=== PATIENT | female | born 1935 | race Caucasian/White ===

== ENCOUNTER 2016-07-27 13:21 | Emergency (ER) | payer MEDICARE, BC ==
--- NOTE | 2016-07-27 14:00 | ED ---
General Adult HPI - General Source: patient, family, RN notes reviewed Mode of arrival: wheelchair Limitations: no limitations <Winston Calderon - Last Filed: 07/27/16 16:36> <Jasson Feliz - Last Filed: 07/27/16 20:34> - General Chief complaint: Arrhythmia/Palpitations Stated complaint: heart fluttering Time Seen by Provider: 07/27/16 13:50 - History of Present Illness Initial comments: Patient is pleasant 80-year-old female presenting to the emergency department complaining of near syncopal sensation of palpitations. Patient has had a couple episodes today. Patient feels her heart fluttering. Patient feels lightheaded and lifts if she is going to pass out. Patient has difficulty walking during these events. Patient is currently symptom-free. Patient has had a venous symptoms associated with atrial fibrillation. Patient is on Coumadin. Patient did fall and strike the back of her head 1 week ago however no loss of consciousness. (Winston Calderon) - Related Data Home Medications Medication Instructions Recorded Confirmed Dofetilide [Tikosyn] 250 mcg PO DAILY@0900,2100 10/06/13 07/27/16 Warfarin [Coumadin] 3 mg PO DAILY 10/06/13 07/27/16 Levothyroxine Sodium [Synthroid] 75 mcg PO DAILY 11/04/15 07/27/16 Magnesium Oxide [Mag-Ox] 400 mg PO DAILY 11/04/15 07/27/16 Metoprolol Succinate (ER) [Toprol 50 mg PO DAILY 11/04/15 07/27/16 Xl] Spironolactone [Aldactone] 25 mg PO DAILY 11/04/15 07/27/16 Acetaminophen [Tylenol] 650 mg PO Q6HR PRN 07/27/16 07/27/16 Furosemide [Lasix] 40 mg PO DAILY 07/27/16 07/27/16 Pravastatin Sodium [Pravachol] 80 mg PO HS 07/27/16 07/27/16 Previous Rx's Medication Instructions Recorded Warfarin [Coumadin] 3 mg PO DAILY #30 tab 07/27/16 Allergies Allergy/AdvReac Type Severity Reaction Status Date / Time codeine Allergy Unknown Verified 07/27/16 14:20 monosodium glutamate [MSG] Allergy Unknown Verified 07/27/16 14:20 Review of Systems ROS Other: All systems not noted in ROS Statement are negative. Constitutional: Denies: fever Eyes: Denies: eye pain ENT: Denies: ear pain Respiratory: Denies: cough, dyspnea Cardiovascular: Reports: palpitations. Denies: chest pain Endocrine: Reports: fatigue Gastrointestinal: Denies: abdominal pain Genitourinary: Denies: dysuria Musculoskeletal: Denies: back pain Skin: Denies: rash Neurological: Denies: headache, weakness <CalderonWinston - Last Filed: 07/27/16 16:36> ROS Other: All systems not noted in ROS Statement are negative. <Jasson Feliz - Last Filed: 07/27/16 20:34> ROS Statement: Those systems with pertinent positive or pertinent negative responses have been documented in the HPI. Past Medical History Past Medical History: Coronary Artery Disease (CAD), Heart Failure, Hypertension , Thyroid Disorder Additional Past Medical History / Comment(s): UTI, arrythmia History of Any Multi-Drug Resistant Organisms: None Reported Past Surgical History: Cardiac Ablation, Section, Orthopedic Surgery, Pacemaker Additional Past Surgical History / Comment(s): BILATERAL KNEE Past Anesthesia/Blood Transfusion Reactions: No Reported Reaction Type of Cardiac Device: Biventricular Pacemaker, Permanent Pacemaker, AICD Device Placement Date:: 2010 Past Psychological History: No Psychological Hx Reported Smoking Status: Never smoker Past Alcohol Use History: None Reported Past Drug Use History: None Reported <Winston Calderon - Last Filed: 07/27/16 16:36> General Exam Limitations: no limitations General appearance: alert, in no apparent distress Head exam: Present: atraumatic Eye exam: Present: normal appearance, PERRL, EOMI ENT exam: Present: normal oropharynx Neck exam: Present: normal inspection Respiratory exam: Present: normal lung sounds bilaterally Cardiovascular Exam: Present: regular rate, normal rhythm Expanded Peripheral pulses: 2+: Radial (R), Radial (L), Dorsalis Pedis (R), Dorsalis Pedis (L) GI/Abdominal exam: Present: soft. Absent: tenderness Extremities exam: Present: normal inspection. Absent: pedal edema, calf tenderness Neurological exam: Present: alert, oriented X3, CN II-XII intact. Absent: motor sensory deficit Expanded Speech: Present: fluid speech Motor strength exam: RUE: 5, LUE: 5, RLE: 5, LLE: 5 Eye Response: (4) open spontaneously Motor Response: (6) obeys commands Verbal Response: (5) oriented Psychiatric exam: Present: normal affect, normal mood Skin exam: Present: normal color <Winston Calderon - Last Filed: 07/27/16 16:36> <Jasson Feliz - Last Filed: 07/27/16 20:34> - General Exam Comments Initial Comments: Patient did have her pacemaker interrogated appears to functioning as it was programmed to do. No evidence of any deficits. Patient will be discharged with follow-up with her lard maker as planned. I did also discuss with the patient that she does need increase oral fluid intake. (Jasson Feliz) EKG Findings - EKG Comments: EKG Findings:: Atrial paced rhythm with a rate of 75. First-degree AV block with a GA of 234. QRS 78. QT 434. QTC 484. Normal axis. Normal QRS. Normal ST-T. <Winston Calderon - Last Filed: 07/27/16 16:36> Medical Decision Making - Lab Data Result diagrams: 07/27/16 14:00 07/27/16 14:00 - Radiology Data Radiology results: report reviewed (Computed tomography scan the brain reveals no acute process.), image reviewed (Chest x-ray shows no acute process.) <Winston Calderon - Last Filed: 07/27/16 16:36> - Lab Data Result diagrams: 07/27/16 14:00 07/27/16 14:00 <Jasson Feliz - Last Filed: 07/27/16 20:34> - Medical Decision Making Patient reexamined and symptom-free. Case discussed in detail with Dr. Lawrence who does recommend discussing the case with Dr. schultz. Case was discussed with Dr. schultz who does want to have device interrogated and his lungs are problems she can be discharged home. (Winston Calderon) - Lab Data Lab Results 07/27/16 07/27/16 07/27/16 Range/Units 14:00 14:00 14:00 WBC 5.0 (3.8-10.6) k/uL RBC 4.58 (3.80-5.40) m/uL Hgb 13.2 (11.4-16.0) gm/dL Hct 40.9 (34.0-46.0) % MCV 89.3 (80.0-100.0) fL MCH 28.8 (25.0-35.0) pg MCHC 32.2 (31.0-37.0) g/dL RDW 13.2 (11.5-15.5) % Plt Count 236 (150-450) k/uL Neutrophils % 48 % Lymphocytes % 36 % Monocytes % 8 % Eosinophils % 2 % Basophils % 2 % Neutrophils # 2.4 (1.3-7.7) k/uL Lymphocytes # 1.8 (1.0-4.8) k/uL Monocytes # 0.4 (0-1.0) k/uL Eosinophils # 0.1 (0-0.7) k/uL Basophils # 0.1 (0-0.2) k/uL PT (9.0-12.0) sec INR (<1.1) APTT (22.0-30.0) sec Sodium 141 (137-145) mmol/L Potassium 4.5 (3.5-5.1) mmol/L Chloride 105 (98-107) mmol/L Carbon Dioxide 29 (22-30) mmol/L Anion Gap 7 mmol/L BUN 22 H (7-17) mg/dL Creatinine 0.96 (0.52-1.04) mg/dL Est GFR (MDRD) Af Amer >60 (>60 ml/min/1.73 sqM) Est GFR (MDRD) Non-Af 56 (>60 ml/min/1.73 sqM) Glucose 100 H (74-99) mg/dL Calcium 9.0 (8.4-10.2) mg/dL Magnesium 2.1 (1.6-2.3) mg/dL Total Bilirubin 0.6 (0.2-1.3) mg/dL AST 25 (14-36) U/L ALT 21 (9-52) U/L Alkaline Phosphatase 69 (38-126) U/L Total Creatine Kinase 77 (30-135) U/L CK-MB (CK-2) 1.5 (0.0-2.4) ng/mL CK-MB (CK-2) Rel Index 1.9 Troponin I <0.012 (0.000-0.034) ng/mL Total Protein 6.4 (6.3-8.2) g/dL Albumin 3.5 (3.5-5.0) g/dL TSH <0.015 L (0.465-4.680) mIU/L Free T4 2.02 (0.78-2.19) ng/dL Free T3 pg/mL 4.4 (2.8-5.3) pg/ml 07/27/16 Range/Units 14:00 WBC (3.8-10.6) k/uL RBC (3.80-5.40) m/uL Hgb (11.4-16.0) gm/dL Hct (34.0-46.0) % MCV (80.0-100.0) fL MCH (25.0-35.0) pg MCHC (31.0-37.0) g/dL RDW (11.5-15.5) % Plt Count (150-450) k/uL Neutrophils % % Lymphocytes % % Monocytes % % Eosinophils % % Basophils % % Neutrophils # (1.3-7.7) k/uL Lymphocytes # (1.0-4.8) k/uL Monocytes # (0-1.0) k/uL Eosinophils # (0-0.7) k/uL Basophils # (0-0.2) k/uL PT 13.6 H (9.0-12.0) sec INR 1.4 (<1.1) APTT 22.6 (22.0-30.0) sec Sodium (137-145) mmol/L Potassium (3.5-5.1) mmol/L Chloride (98-107) mmol/L Carbon Dioxide (22-30) mmol/L Anion Gap mmol/L BUN (7-17) mg/dL Creatinine (0.52-1.04) mg/dL Est GFR (MDRD) Af Amer (>60 ml/min/1.73 sqM) Est GFR (MDRD) Non-Af (>60 ml/min/1.73 sqM) Glucose (74-99) mg/dL Calcium (8.4-10.2) mg/dL Magnesium (1.6-2.3) mg/dL Total Bilirubin (0.2-1.3) mg/dL AST (14-36) U/L ALT (9-52) U/L Alkaline Phosphatase (38-126) U/L Total Creatine Kinase (30-135) U/L CK-MB (CK-2) (0.0-2.4) ng/mL CK-MB (CK-2) Rel Index Troponin I (0.000-0.034) ng/mL Total Protein (6.3-8.2) g/dL Albumin (3.5-5.0) g/dL TSH (0.465-4.680) mIU/L Free T4 (0.78-2.19) ng/dL Free T3 pg/mL (2.8-5.3) pg/ml Disposition <Winston Calderon - Last Filed: 07/27/16 16:36> <Jasson Feliz - Last Filed: 07/27/16 20:34> Clinical Impression: Palpitations, Dehydration, Pacemaker Disposition: HOME SELF-CARE Condition: Good Instructions: Palpitations (ED), Dehydration (ED) Prescriptions: Warfarin [Coumadin] 3 mg PO DAILY #30 tab Referrals: Tray Liu DO [Primary Care Provider] - 1-2 days
[2016-07-27 14:16] LABS: Basophils # (A) 0.1 k/uL (0-0.2); Basophils % (A) 2 %; CH 28.1; CHCM 31.6; Eosinophils # (A) 0.1 k/uL (0-0.7); Eosinophils % (A) 2 %; HCT 40.9 % (34.0-46.0); HDW 2.39; HGB 13.2 gm/dL (11.4-16.0); Luc # (Auto) 0.21; Luc % (Auto) 4; Lymphocytes # (A) 1.8 k/uL (1.0-4.8); Lymphocytes % (A) 36 %; MCH 28.8 pg (25.0-35.0); MCHC 32.2 g/dL (31.0-37.0); MCV 89.3 fL (80.0-100.0); Mean Platelet Volume 6.9; Monocytes # (A) 0.4 k/uL (0-1.0); Monocytes % (A) 8 %; Neutrophils # (A) 2.4 k/uL (1.3-7.7); Neutrophils % (A) 48 %; RBC 4.58 m/uL (3.80-5.40); RDW 13.2 % (11.5-15.5); WBC (Perox) 4.96
[2016-07-27 14:30] LABS: ALT 21 U/L (9-52); AST 25 U/L (14-36); Alkaline Phosphatase 69 U/L (38-126); Anion Gap 7 mmol/L; Blood Urea Nitrogen 22 mg/dL (7-17); Carbon Dioxide 29 mmol/L (22-30); Chloride 105 mmol/L (98-107); Glucose 100 mg/dL (74-99); Magnesium 2.1 mg/dL (1.6-2.3); Non-African American GFR(MDRD) 56 (>60 ml/min/1.73 sqM); Potassium 4.5 mmol/L (3.5-5.1); Sodium 141 mmol/L (137-145); Total Bilirubin 0.6 mg/dL (0.2-1.3); Total Protein 6.4 g/dL (6.3-8.2)
[2016-07-27 14:32] LABS: INR 1.4 (<1.1); Partial Thromboplastin Time 22.6 sec (22.0-30.0); Prothrombin Time 13.6 sec (9.0-12.0)
[2016-07-27 14:41] LABS: Creatine Kinase 77 U/L (30-135)
--- NOTE | 2016-07-27 14:43 | XR ---
EXAMINATION TYPE: XR chest 2V DATE OF EXAM: 07/27/2016 2:36 PM COMPARISON: Prior chest x-ray 04 November 2015 HISTORY: Dysrhythmia TECHNIQUE: Frontal and lateral views of the chest are obtained. FINDINGS: There is no focal air space opacity, pleural effusion, or pneumothorax seen. The cardiac silhouette size is stable accounting for differences in technique. There are prominent lung volumes suggesting underlying COPD. Intracardiac defibrillator leads are stable. Calcified nodes present in t he aorticopulmonary window. Patient is rotated. There are overlying cardiac leads. The osseous struct ures are intact. IMPRESSION: No acute cardiopulmonary process.
[2016-07-27 14:53] LABS: Creatine Kinase MB 1.5 ng/mL (0.0-2.4); Troponin I <0.012 ng/mL (0.000-0.034)
--- NOTE | 2016-07-27 15:24 | CT ---
EXAMINATION TYPE: CT brain wo con DATE OF EXAM: 07/27/2016 3:21 PM COMPARISON: NONE HISTORY: Fall last week, left posterior head injury. Weakness since. CT DLP: 1135.[address] of the brain was performed. The ventricles, basal cisterns and sulci overlying the cerebral convexities demonstrate mild enlargem ent. There is no evidence for intracranial hemorrhage or sulcal effacement. There is decreased attenuation about the periventricular white matter and deep white matter of both c erebral hemispheres, compatible with chronic small vessel ischemia. Differential diagnosis does inclu de demyelination. No mass effects are seen.No midline shift. Osseous calvarium is intact. If symptoms persist consider MRI. IMPRESSION: 1. Age related atrophic and chronic small vessel ischemic change without acute intracranial process s een at this time.
[2016-07-27 16:11] VITALS: TEMP 97.3
[2016-07-27] MEDS ORDERED: WARFARIN 3 MG TAB PO ONE (18:00)
[2016-07-27 20:11] VITALS: RESP 16
[2016-07-27 20:29] VITALS: BP 131/63; PULSE 73
== END 2016-07-27 20:41 | disposition home or self-care (01) ==
LOC: EC 13:21
DX: E86.0 Dehydration (principal); R00.2 Palpitations; I25.10 Atherosclerotic heart disease of native coronary artery without angina pectoris; I50.9 Heart failure, unspecified; I10 Essential (primary) hypertension; E07.9 Disorder of thyroid, unspecified; Z79.899 Other long term (current) drug therapy; Z79.01 Long term (current) use of anticoagulants; Z88.5 Allergy status to narcotic agent; Z88.8 Allergy status to other drugs, medicaments and biological substances; Z95.810 Presence of automatic (implantable) cardiac defibrillator
CPT/HCPCS: 36415; 70450; 71020; 80053; 82550; 82553; 83735; 84439; 84443; 84481; 84484; 85025; 85610; 85730; 93005; 99284

== ENCOUNTER 2016-08-30 14:45 | Day surgery (SDC) | payer MEDICARE, BC ==
[~2016-08-30 14:45] MED LIST: HYDROmorphone 1 MG/ML 1 ML SYRINGE IVP PRN; MIDAZOLAM 2 MG/2 ML VIAL IV PRN; ceFAZolin 1,000 MG in SODIUM CHLORIDE 0.9% IRRIGATIO 250 ML IRRIGATION ONE; ceFAZolin 2 GM in SODIUM CHLORIDE 0.9% 100 ML IVPB ONE
[2016-08-30] MEDS: SODIUM CHLORIDE 0.9% 1,000 ML IV SCH (15:16)
[2016-08-30 15:29] LABS: INR 1.6 (<1.1); Prothrombin Time 15.8 sec (9.0-12.0)
[2016-08-30] MEDS ORDERED: MIDAZOLAM 2 MG/2 ML VIAL ONE (18:31)
[2016-08-30] MEDS ORDERED: PROPOFOL 10 MG/ML 20 ML VIAL IV ONE (18:31)
[2016-08-30] MEDS ORDERED: fentaNYL (PF) 50 MCG/ML 2 ML AMP ONE (18:31)
[2016-08-30] MEDS ORDERED: ePHEDrine 50 MG/ML 1 ML AMP ONE (18:31)
[2016-08-30] MEDS ORDERED: LIDOCAINE 1% INJ 10MG/ML (20 ML MDV) SQ ONE (19:02)
[2016-08-30] MEDS ORDERED: LIDOCAINE 2% INJ 20 MG/ML SQ ONE (19:13)
[2016-08-30] MEDS ORDERED: ACETAMINOPHEN TAB 325 MG TAB PO PRN (19:46)
[2016-08-30] MEDS ORDERED: HYDROcodone/APAP 5-325MG 1 EACH TAB PO PRN (19:46)
[2016-08-30] MEDS ORDERED: SODIUM CHLORIDE 0.9% 500 ML IV ONE (19:52)
[2016-08-30] MEDS ORDERED: ACETAMINOPHEN IV (For NPO) 1,000 MG in EMPTY BAG 1 BAG IVPB ONE (20:00)
--- NOTE | 2016-08-30 20:21 | PCN ---
DATE OF PROCEDURE: History of idiopathic cardiomyopathy and heart failure and atrial fibrillation who has a dual-chamber ICD which is at [facility]. At the time of ICD implantation originally at an outside institution, ejection fraction of 30%. She was referred by Dr. Saravia for dual-chamber ICD generator change. Patient was brought to the EP lab in a fasting state. Written informed consent was obtained prior to the procedure. The left shoulder area was prepped and draped as per protocol. Lidocaine 1% was used for local anesthesia. A 4 cm incision was made parallel to the deltopectoral groove and carried down to the level of the generator. The generator was explanted. Partial capsulectomy was performed. Hemostasis was assured. The device had migrated laterally and the pocket was extended more medially. Once the new generator was implanted, it was secured to the underlying pectoralis muscle to prevent lateral migration. The atrial and ventricular lead functions were within normal limits. The atrial lead was a Medtronic model #4076, serial #[id number], P waves 2.3 mV, pacing impedance 430 ohms, pacing threshold 0.5 v at 0.5 ms. The RV lead was a single-coil Medtronic 6935, serial #[id number]. R waves 9.8 mV, pacing impedance 380 ohms, pacing threshold 0.625 v at 0.5 ms. The old generator explanted was a Medtronic [id number], serial #[id number]. The new generator that was implanted was a [employer], model #NA4235-70P, serial #[id number]. The original generator was implanted in June of 2010. The wound was then closed in 3 layers and dressed per protocol. DFT TESTING UNDER ANESTHESIA: Shock and T-wave protocol was used to induce ventricular fibrillation. DFT testing was performed under anesthesia. A DC fib ( ) shock was used to induce ventricular fibrillation. This was adequately and appropriately detected at least sensitivity and successfully internally defibrillated with a 10-joule shock. No post-shock noise. No dropouts. Charge time 1.9 seconds. Shocking impedance 72 ohms. Patient went into atrial fibrillation with this shock and she had to be electrically cardioverted to sinus rhythm. She had atrial fibrillation with RVR at 130 beats per minute. The device was then programmed to 3 zones of therapy according to the MADIT-RIT programming to minimize inappropriate ICD shocks. Appropriate anti-tachycardia pacing, cardioversion and defibrillation were programmed. Underlying DDDR pacing at 50 to 130 bpm. Patient tolerated the procedure well without any acute complications.
--- NOTE | 2016-08-30 20:23 | LTR ---
August 30, 2016 RE: Clarisa Baum Dear Tray, I had the pleasure of seeing Clarisa Baum in electrophysiology followup. Clarisa underwent dual-chamber ICD generator change successfully without any acute complication. She will remain in the hospital for 24 hours and receive IV antibiotics and will be discharged home thereafter. Her medications remain unchanged. She will follow up with you and Dr. Saravia as before. Thank you for entrusting me with the care of your patient. Sincerely, LALY CASTAÑEDA MD
[2016-08-30] MEDS: LACTATED RINGERS 1,000 ML IV SCH (20:54)
[2016-08-30] MEDS ORDERED: PRAVASTATIN SODIUM 80 MG TAB PO SCH (21:00)
[2016-08-30] MEDS: DOFETILIDE 250 MCG CAP PO SCH (21:07)
[2016-08-30] MEDS ORDERED: TEMAZEPAM 15 MG CAP PO PRN (22:30)
[2016-08-30 22:57] VITALS: BMI 26.3
[2016-08-30] MEDS: ceFAZolin 2 GM in SODIUM CHLORIDE 0.9% 100 ML IVPB SCH (23:14)
[2016-08-31] MEDS: LACTATED RINGERS 1,000 ML IV SCH (06:04)
[2016-08-31] MEDS: ceFAZolin 2 GM in SODIUM CHLORIDE 0.9% 100 ML IVPB SCH ×3 (06:04→17:01)
[2016-08-31] MEDS: SODIUM CHLORIDE 0.9% 1,000 ML IV SCH (06:05)
[2016-08-31] MEDS ORDERED: LEVOTHYROXINE 75 MCG TAB PO SCH (06:30)
[2016-08-31] MEDS: METOCLOPRAMIDE 5 MG/ML 2 ML VIAL IVP PRN ×2 (08:10→13:22)
[2016-08-31] MEDS ORDERED: SPIRONOLACTONE 25 MG TAB PO SCH (09:00)
[2016-08-31] MEDS ORDERED: MAGNESIUM OXIDE 400 MG TAB PO SCH (09:00)
[2016-08-31] MEDS ORDERED: FUROSEMIDE 40 MG TAB PO SCH (09:00)
[2016-08-31] MEDS ORDERED: METOPROLOL SUCCINATE (ER) 50 MG TAB.ER.24H PO SCH (09:00)
[2016-08-31] MEDS: DOFETILIDE 250 MCG CAP PO SCH (10:21)
--- NOTE | 2016-08-31 12:31 | PN ---
An 80-year-old female who underwent dual-chamber ICD generator change yesterday. She is doing well. There is a little bit of soakage in the dressing, but otherwise no hematoma. She was a bit nauseous in the morning after the antibiotic. Vitals are stable. Blood pressure is 111/57 mmHg, pulse rate is in the 60;s, afebrile at 96.2 degrees Fahrenheit. Heart sounds S1, S2 are normal. Breath sounds are normal. IMPRESSION: 1. History of cardiomyopathy, idiopathic, status post dual chamber ICD at an outside institution. Yesterday, she underwent dual-chamber ICD generator change. 2. Atrial fibrillation, on dofetilide. Suggest continue dofetilide and all other cardiac medications. Follow up in the office in 5 days in the [facility]. She may go home later this evening after completion of IV antibiotics.
[2016-08-31 15:56] VITALS: BP 132/62; PULSE 67; RESP 16; TEMP 98.1
== END 2016-08-31 18:24 | disposition home or self-care (01) ==
LOC: CATHEP 14:45 → 3OBS 19:35 → CATHEP 08-31 18:24
PROVIDERS: ATTEND Internal Medicine Clinical Cardiac Electrophysiology
DX: Z45.02 Encounter for adjustment and management of automatic implantable cardiac defibrillator (principal); R11.0 Nausea; I48.0 Paroxysmal atrial fibrillation; I42.9 Cardiomyopathy, unspecified; I11.0 Hypertensive heart disease with heart failure; I50.9 Heart failure, unspecified; I25.10 Atherosclerotic heart disease of native coronary artery without angina pectoris; I25.9 Chronic ischemic heart disease, unspecified; E78.2 Mixed hyperlipidemia; I34.0 Nonrheumatic mitral (valve) insufficiency; I48.92 Unspecified atrial flutter; K21.9 Gastro-esophageal reflux disease without esophagitis; Z79.01 Long term (current) use of anticoagulants; Z79.899 Other long term (current) drug therapy; Z88.5 Allergy status to narcotic agent
CPT/HCPCS: 93641; 33263; 85610; C1721; J2001 ×2; J2250; J2765; J0690 ×3; J3010; J0131; J2704

== ENCOUNTER → 2017-08-31 | Outpatient (CLI) | payer MEDICARE, BC ==
--- NOTE | 2017-09-02 10:45 | MM ---
Reason for exam: screening (asymptomatic). Last mammogram was performed 2 years and 11 months ago. History: Patient is postmenopausal. Family history of breast cancer in sister at age 50. Benign excisional biopsy of the left breast. Physical Findings: A clinical breast exam by your physician is recommended on an annual basis and results should be correlated with mammographic findings. MG 3D Screening Mammo W/Cad Bilateral CC and MLO view(s) were taken. Prior study comparison: October 04, 2014, bilateral MG screening mammo w CAD. October 03, 2013, bilateral MG screening mammo w CAD. The breast tissue is heterogeneously dense. This may lower the sensitivity of mammography. Benign appearing bilateral calcifications. Left cardiac device noted. ASSESSMENT: Benign, BI-RAD 2 RECOMMENDATION: Routine screening mammogram of both breasts in 1 year.
== END | disposition home or self-care (01) ==
LOC: RADMAMWWP 12:30
PROVIDERS: ATTEND Family Medicine
DX: Z12.31 Encounter for screening mammogram for malignant neoplasm of breast (principal)
CPT/HCPCS: 77063; 77067

== ENCOUNTER 2017-09-25 10:08 | Emergency (ER) | payer MEDICARE, BC ==
[2017-09-25 10:16] VITALS: RESP 18
[2017-09-25] MEDS ORDERED: SODIUM CHLORIDE 0.9% 1,000 ML IV STA (10:27)
--- NOTE | 2017-09-25 10:31 | ED ---
General Adult HPI - General Source: patient, RN notes reviewed Mode of arrival: wheelchair Limitations: no limitations <Modesto Sheikh - Last Filed: 09/25/17 12:28> <Jasson Quispe - Last Filed: 09/25/17 17:20> - General Chief complaint: Weakness Stated complaint: WEAKNESS, HEADACHE, DIZZINESS Time Seen by Provider: 09/25/17 10:19 - History of Present Illness Initial comments: Patient 81-year-old female presenting to the emergency room today with chief complaint of dizziness and head pressure. Patient states that yesterday she was standing at the kitchen sink when she noticed that skin very dizzy lightheaded. She states she had used the furniture to help her get back to the living room to sit down. States the episode lasted 15-20 minutes. Patient admits that she's had similar episodes in the past but not as severe. Patient states woke up this morning feeling pressure both in the front and at times radiating to the back of her head. States currently not feeling any pressure at this time. She does admit that it's come and goes and lasts just a few minutes at a time. Patient also admits to feeling difficulty walking that has been ongoing over the last several months. Patient denies any recent fever, chills, shortness of breath, chest pain, back pain, abdominal pain, nausea or vomiting, numbness or tingling, headaches or visual changes, or any other complaints. (Modesto Sheikh) - Related Data Home Medications Medication Instructions Recorded Confirmed Dofetilide [Tikosyn] 250 mcg PO DAILY@0900,2100 10/06/13 09/25/17 Levothyroxine Sodium [Synthroid] 75 mcg PO DAILY 11/04/15 09/25/17 Magnesium Oxide [Mag-Ox] 400 mg PO DAILY 11/04/15 09/25/17 Metoprolol Succinate (ER) [Toprol 50 mg PO DAILY 11/04/15 09/25/17 Xl] Spironolactone [Aldactone] 25 mg PO DAILY 11/04/15 09/25/17 Acetaminophen [Tylenol] 650 mg PO Q6HR PRN 07/27/16 09/25/17 Furosemide [Lasix] 40 mg PO DAILY 07/27/16 09/25/17 Pravastatin Sodium [Pravachol] 80 mg PO HS 07/27/16 09/25/17 Previous Rx's Medication Instructions Recorded Warfarin [Coumadin] 3 mg PO DAILY #30 tab 07/27/16 Allergies Allergy/AdvReac Type Severity Reaction Status Date / Time codeine Allergy Unknown Verified 08/30/16 21:01 monosodium glutamate [MSG] Allergy headache Verified 08/30/16 21:01 Review of Systems ROS Other: All systems not noted in ROS Statement are negative. <Modesto Sheikh - Last Filed: 09/25/17 12:28> ROS Other: All systems not noted in ROS Statement are negative. <Jasson Quispe - Last Filed: 09/25/17 17:20> ROS Statement: Those systems with pertinent positive or pertinent negative responses have been documented in the HPI. Past Medical History Past Medical History: Coronary Artery Disease (CAD), Heart Failure, CVA/TIA, Deep Vein Thrombosis (DVT), Hyperlipidemia, Hypertension, Osteoarthritis (OA), Thyroid Disorder Additional Past Medical History / Comment(s): UTI, arrythmia See Dr Garcia's H& P for cardiac history History of Any Multi-Drug Resistant Organisms: None Reported Past Surgical History: Cardiac Ablation, Section, Hysterectomy, Orthopedic Surgery, Pacemaker Additional Past Surgical History / Comment(s): BILATERAL KNEE Past Anesthesia/Blood Transfusion Reactions: No Reported Reaction Type of Cardiac Device: Biventricular Pacemaker, Permanent Pacemaker, AICD Device Placement Date:: 2010 Past Psychological History: No Psychological Hx Reported Smoking Status: Never smoker Past Alcohol Use History: None Reported Past Drug Use History: None Reported - Past Family History Father Family Medical History: Cancer Additional Family Medical History / Comment(s): bowel Sister(s) Family Medical History: Cancer Additional Family Medical History / Comment(s): breast <Modesto Sheikh - Last Filed: 09/25/17 12:28> General Exam Limitations: no limitations <Modesto Sheikh - Last Filed: 09/25/17 12:28> <Jasson Quispe - Last Filed: 09/25/17 17:20> - General Exam Comments Initial Comments: General: The patient is awake and alert, in no distress, and does not appear acutely ill. Eye: Pupils are equal, round and reactive to light, extra-ocular movements are intact. No nystagmus. There is normal conjunctiva bilaterally. No signs of icterus. Ears, nose, mouth and throat: There are moist mucous membranes and no oral lesions. Neck: The neck is supple, there is no tenderness or JVD. Cardiovascular: There is a regular rate and rhythm. No murmur, rub or gallop is appreciated. Respiratory: Lungs are clear to auscultation, respirations are non-labored, breath sounds are equal. No wheezes, stridor, rales, or rhonchi. Musculoskeletal: Normal ROM, no tenderness. Strength 5/5. Sensation intact. Pulses equal bilaterally 2+. Neurological: A&O x 3. CN II-XII intact, There are no obvious motor or sensory deficits. Coordination appears grossly intact. Speech is normal. Skin: Skin is warm and dry and no rashes or lesions are noted. Psychiatric: Cooperative, appropriate mood & affect, normal judgment. (Modesto Sheikh) Vital Signs 09/25/17 09/25/17 09/25/17 10:13 10:16 12:43 Temperature 98.3 F 97.5 F L Pulse Rate 72 65 Respiratory 18 18 Rate Blood Pressure 159/73 151/89 O2 Sat by Pulse 99 97 Oximetry EKG Findings - EKG Comments: EKG Findings:: EKG performed at 1056: Shows normal sinus rhythm at 67 bpm. LA interval 172. QRS 66. QT/QTc 450/475. No acute ST changes. <Modesto Sheikh - Last Filed: 09/25/17 12:28> Medical Decision Making - Lab Data Result diagrams: 09/25/17 10:57 09/25/17 10:57 <Modesto Sheikh - Last Filed: 09/25/17 12:28> - Lab Data Result diagrams: 09/25/17 10:57 09/25/17 10:57 <Jasson Quispe - Last Filed: 09/25/17 17:20> - Medical Decision Making Patient reexamined at this time shows no signs of distress. Patient's EKG shows normal sinus rhythm. Labs been reviewed are unremarkable. Chest x-rays negative. CT of the head negative. Results were discussed with the patient. Patient seen by attending physician Dr. Quispe. Was offered to the patient for admission with consult to neurology for her symptoms of dizziness and headache. Patient has had no headache here in the emergency room. States comes and goes. At this time patient states she feels comfortable being discharged home does not want stay in the hospital has declined admission. Patient will be discharged to follow-up the family physician tomorrow. Advised return if any symptoms increase or worsen or any other concerns. (Modesto Sheikh ) Patient evaluated, no signs of distress. Patient is quite comfortable with no complaints the time my evaluation. Neurologic examination is nonfocal. There is no ataxia, normal gait, Romberg is negative, ryiv-af-pasf normal, finger-to- nose normal. Patient is offered admission for her symptoms as she does have previous history of TIA and CVA, although it is thought to be very unlikely at this time. She declines prefers to be discharged home and will follow up as an outpatient. She will return with worsening or changing symptoms. (Jasson Quispe) - Lab Data Lab Results 09/25/17 09/25/17 09/25/17 Range/Units 10:57 10:57 10:57 WBC 5.2 (3.8-10.6) k/uL RBC 4.54 (3.80-5.40) m/uL Hgb 12.6 (11.4-16.0) gm/dL Hct 39.8 (34.0-46.0) % MCV 87.7 (80.0-100.0) fL MCH 27.8 (25.0-35.0) pg MCHC 31.7 (31.0-37.0) g/dL RDW 14.2 (11.5-15.5) % Plt Count 231 (150-450) k/uL Neutrophils % 48 % Lymphocytes % 36 % Monocytes % 9 % Eosinophils % 3 % Basophils % 1 % Neutrophils # 2.5 (1.3-7.7) k/uL Lymphocytes # 1.9 (1.0-4.8) k/uL Monocytes # 0.4 (0-1.0) k/uL Eosinophils # 0.1 (0-0.7) k/uL Basophils # 0.1 (0-0.2) k/uL PT (9.0-12.0) sec INR (<1.2) APTT (22.0-30.0) sec Sodium 141 (137-145) mmol/L Potassium 4.2 (3.5-5.1) mmol/L Chloride 102 (98-107) mmol/L Carbon Dioxide 30 (22-30) mmol/L Anion Gap 9 mmol/L BUN 16 (7-17) mg/dL Creatinine 0.93 (0.52-1.04) mg/dL Est GFR (CKD-EPI)AfAm 67 (>60 ml/min/1.73 sqM) Est GFR (CKD-EPI)NonAf 58 (>60 ml/min/1.73 sqM) Glucose 86 (74-99) mg/dL Calcium 9.5 (8.4-10.2) mg/dL Magnesium 2.1 (1.6-2.3) mg/dL Total Bilirubin 0.5 (0.2-1.3) mg/dL AST 25 (14-36) U/L ALT 21 (9-52) U/L Alkaline Phosphatase 71 (38-126) U/L Total Creatine Kinase 51 (30-135) U/L CK-MB (CK-2) 1.0 (0.0-2.4) ng/mL CK-MB (CK-2) Rel Index 2.0 Troponin I <0.012 (0.000-0.034) ng/mL Total Protein 6.1 L (6.3-8.2) g/dL Albumin 3.5 (3.5-5.0) g/dL Urine Color Urine Appearance (Clear) Urine pH (5.0-8.0) Ur Specific Flagler (1.001-1.035) Urine Protein (Negative) Urine Glucose (UA) (Negative) Urine Ketones (Negative) Urine Blood (Negative) Urine Nitrite (Negative) Urine Bilirubin (Negative) Urine Urobilinogen (<2.0) mg/dL Ur Leukocyte Esterase (Negative) 09/25/17 09/25/17 Range/Units 10:57 10:57 WBC (3.8-10.6) k/uL RBC (3.80-5.40) m/uL Hgb (11.4-16.0) gm/dL Hct (34.0-46.0) % MCV (80.0-100.0) fL MCH (25.0-35.0) pg MCHC (31.0-37.0) g/dL RDW (11.5-15.5) % Plt Count (150-450) k/uL Neutrophils % % Lymphocytes % % Monocytes % % Eosinophils % % Basophils % % Neutrophils # (1.3-7.7) k/uL Lymphocytes # (1.0-4.8) k/uL Monocytes # (0-1.0) k/uL Eosinophils # (0-0.7) k/uL Basophils # (0-0.2) k/uL PT 13.8 H (9.0-12.0) sec INR 1.5 H (<1.2) APTT 23.2 (22.0-30.0) sec Sodium (137-145) mmol/L Potassium (3.5-5.1) mmol/L Chloride (98-107) mmol/L Carbon Dioxide (22-30) mmol/L Anion Gap mmol/L BUN (7-17) mg/dL Creatinine (0.52-1.04) mg/dL Est GFR (CKD-EPI)AfAm (>60 ml/min/1.73 sqM) Est GFR (CKD-EPI)NonAf (>60 ml/min/1.73 sqM) Glucose (74-99) mg/dL Calcium (8.4-10.2) mg/dL Magnesium (1.6-2.3) mg/dL Total Bilirubin (0.2-1.3) mg/dL AST (14-36) U/L ALT (9-52) U/L Alkaline Phosphatase (38-126) U/L Total Creatine Kinase (30-135) U/L CK-MB (CK-2) (0.0-2.4) ng/mL CK-MB (CK-2) Rel Index Troponin I (0.000-0.034) ng/mL Total Protein (6.3-8.2) g/dL Albumin (3.5-5.0) g/dL Urine Color Light Yellow Urine Appearance Clear (Clear) Urine pH 6.5 (5.0-8.0) Ur Specific [place] 1.005 (1.001-1.035) Urine Protein Negative (Negative) Urine Glucose (UA) Negative (Negative) Urine Ketones Negative (Negative) Urine Blood Negative (Negative) Urine Nitrite Negative (Negative) Urine Bilirubin Negative (Negative) Urine Urobilinogen <2.0 (<2.0) mg/dL Ur Leukocyte Esterase Negative (Negative) Disposition Is patient prescribed a controlled substance at d/c from ED?: No Time of Disposition: 12:30 <Modesto Sheikh - Last Filed: 09/25/17 12:28> <Jasson Quispe - Last Filed: 09/25/17 17:20> Clinical Impression: Dizziness, Headache Disposition: HOME SELF-CARE Condition: Good Instructions: Dizziness (ED) Additional Instructions: Please use medication as discussed. Please follow-up with family doctor in the next 2 days of symptoms have not improved. Please return to emergency room if the symptoms increase or worsen or for any other concerns. Referrals: Tray Liu DO [Primary Care Provider] - 1-2 days
[2017-09-25 11:20] LABS: Basophils # (A) 0.1 k/uL (0-0.2); Basophils % (A) 1 %; Eosinophils # (A) 0.1 k/uL (0-0.7); Eosinophils % (A) 3 %; HCT 39.8 % (34.0-46.0); HGB 12.6 gm/dL (11.4-16.0); Lymphocytes # (A) 1.9 k/uL (1.0-4.8); Lymphocytes % (A) 36 %; MCH 27.8 pg (25.0-35.0); MCHC 31.7 g/dL (31.0-37.0); MCV 87.7 fL (80.0-100.0); Mean Platelet Volume 7.1; Monocytes # (A) 0.4 k/uL (0-1.0); Monocytes % (A) 9 %; Neutrophils # (A) 2.5 k/uL (1.3-7.7); Neutrophils % (A) 48 %; Platelet Count 231 k/uL (150-450); RBC 4.54 m/uL (3.80-5.40); RDW 14.2 % (11.5-15.5); WBC 5.2 k/uL (3.8-10.6)
[2017-09-25 11:22] LABS: Appearance,Urine Clear (Clear); Bilirubin,Urine Negative (Negative); Blood,Urine Negative (Negative); Color,Urine Light Yellow; Glucose,Urine (UA) Negative (Negative); Ketones,Urine Negative (Negative); Leukocyte Esterase,Urine Negative (Negative); Nitrite,Urine Negative (Negative); PH, Urine 6.5 (5.0-8.0); Protein,Urine Negative (Negative); Specific Gravity,Urine 1.005 (1.001-1.035); Urobilinogen,Urine <2.0 mg/dL (<2.0)
--- NOTE | 2017-09-25 11:29 | CT ---
EXAMINATION TYPE: CT brain wo con DATE OF EXAM: 09/25/2017 COMPARISON: Previous study dated 07/27/2016 HISTORY: Weakness, BLOUNT, Dizziness CT DLP: 1036 mGycm Automated exposure control for dose reduction was used. FINDINGS: There are generalized changes of sulcal prominence and ventriculomegaly, compatible with atrophic anabel nge. There is diffuse periventricular white matter lucency, compatible with chronic white matter isch emic change. There is no acute focal lesion, mass effect or midline shift identified. I do not see ev idence of intracranial blood. Visualized portions of the paranasal sinuses and mastoids are clear. The bony calvarium is intact. IMPRESSION: 1. NO ACUTE INTRACRANIAL ABNORMALITY. 2. MILD DEGENERATIVE CHANGE.
[2017-09-25 11:31] LABS: Albumin 3.5 g/dL (3.5-5.0); Calcium 9.5 mg/dL (8.4-10.2); INR 1.5 (<1.2); Magnesium 2.1 mg/dL (1.6-2.3); Partial Thromboplastin Time 23.2 sec (22.0-30.0); Potassium 4.2 mmol/L (3.5-5.1); Prothrombin Time 13.8 sec (9.0-12.0); Total Bilirubin 0.5 mg/dL (0.2-1.3); Total Protein 6.1 g/dL (6.3-8.2)
--- NOTE | 2017-09-25 11:40 | XR ---
EXAMINATION TYPE: XR chest 2V DATE OF EXAM: 09/25/2017 HISTORY: dizzy. REFERENCE: Previous study dated 07/27/2016. FINDINGS: There are is a bipolar pacemaker place on the left. The lungs are overinflated. The heart is mildly enlarged. The lungs are clear. Pleural spaces are constance ar. IMPRESSION: 1. MILD CARDIOMEGALY. 2. PLEASE CORRELATE FOR COPD.
[2017-09-25 11:42] LABS: Creatine Kinase 51 U/L (30-135)
[2017-09-25 11:54] LABS: Troponin I <0.012 ng/mL (0.000-0.034)
[2017-09-25] MEDS ORDERED: ACETAMINOPHEN TAB 500 MG TAB PO STA (12:32)
[2017-09-25 12:43] VITALS: BP 151/89; PULSE 65; TEMP 97.5
== END 2017-09-25 12:59 | disposition home or self-care (01) ==
LOC: EC 10:08
DX: R51 Headache (principal); R42 Dizziness and giddiness; R26.2 Difficulty in walking, not elsewhere classified; E78.5 Hyperlipidemia, unspecified; I11.0 Hypertensive heart disease with heart failure; I50.9 Heart failure, unspecified; I25.10 Atherosclerotic heart disease of native coronary artery without angina pectoris; E07.9 Disorder of thyroid, unspecified; Z79.899 Other long term (current) drug therapy; Z88.5 Allergy status to narcotic agent; Z91.02 Food additives allergy status; Z86.79 Personal history of other diseases of the circulatory system
CPT/HCPCS: 36415; 70450; 71046; 80053; 81003; 82550; 82553; 83735; 84484; 85025; 85610; 85730; 87086; 93005; 96360; 96361; 99285

== ENCOUNTER → 2017-11-15 | Outpatient (CLI) | payer MEDICARE, BC ==
--- NOTE | 2017-11-15 16:12 | US ---
EXAMINATION TYPE: US venous doppler duplex LE RT DATE OF EXAM: 11/15/2017 3:30 PM COMPARISON: NONE CLINICAL HISTORY: 81-year-old female with right lower Ext, Pain and Swelling ,M79.661 a. varicose vei ns and ankle swelling and redness, h/o dvt in left leg and on Coumadin SIDE PERFORMED: Right TECHNIQUE: The lower extremity deep venous system is examined utilizing real time linear array sonog trini with graded compression, doppler sonography and color-flow sonography. FINDINGS: VESSELS IMAGED: External Iliac Vein (EIV) Common Femoral Vein Deep Femoral Vein Greater Saphenous Vein * Femoral Vein Popliteal Vein Small Saphenous Vein * Proximal Calf Veins (* superficial vessels) *tech impression given to office Physician Practice Market Manager notes: Right Leg: Appears negative for DVT, superficial varicose veins were patent at level of complaint IMPRESSION: 1. No evidence for DVT within the right lower extremity imaged from the groin to the knee. 2. Superficial varicose veins at the level of the calf at the site of patient complaint remain patent .
--- NOTE | 2017-11-16 09:07 | XR ---
Right ankle HISTORY: Right ankle pain 3 views of the right ankle There is soft tissue swelling present. Soft tissue calcifications are likely vascular. Alignment, varun nt spaces, bone mineralization are normal. No periostitis to suggest osteomyelitis. There is a planta r spur. Degenerative change present at the intertarsal joints. Proximal fifth metatarsal not well see n. IMPRESSION: Soft tissue swelling. No fracture or dislocation.
== END | disposition home or self-care (01) ==
LOC: RADUSWWP 15:02
PROVIDERS: ATTEND Family Medicine
DX: I83.891 Varicose veins of right lower extremity with other complications (principal)

== ENCOUNTER → 2017-11-30 | Outpatient (CLI) | payer MEDICARE, BC ==
--- NOTE | 2017-11-30 21:43 | CT ---
EXAMINATION TYPE: CT abdomen pelvis w con DATE OF EXAM: 11/30/2017 COMPARISON: NONE HISTORY: 81-year-old female with right-sided abdominal PAIN TECHNIQUE: Contiguous axial scanning of the abdomen and pelvis following administration of 80 ml Isov ue 300 IV contrast. Delayed images through the kidneys and coronal/sagittal reconstructions performe d. CT DLP: 1031.4 mGycm Automated exposure control for dose reduction was used. FINDINGS: Heart upper limits of normal in size without pericardial effusion. Pacer leads are present. Ectatic aortic root at 3.8 cm. Strandy atelectasis or scarring at the lung bases. There is a small ri ght pleural effusion demonstrated. 3.1 cm cyst right hepatic dome. Additional smaller hypodense lesions too small for accurate CT charac terization are present in the left liver lobe, likely additional cysts. No biliary ductal dilatation. The splenic vein is very diminutive and not well seen. Otherwise, the p ortal venous system is patent. Postsurgical changes along the stomach. Difficult to clearly follow the course of the stomach and pro ximal small bowel. Gallbladder, adrenal glands, and mildly atrophic kidneys show no gross abnormality. Spleen with super ior splenule. Suggestion of some mild small bowel fold thickening in the left midabdomen, for example, refer to axi al image 52. No dilated small bowel or free air. Unable to determine if there is a prior Daniela-en-Y ga stric bypass with an air distended excluded proximal gastric body containing some layering fluid, ref er to axial image 23. Clinical correlation will be needed as to the type of surgery that was performe d. Moderate atherosclerotic calcifications within the abdominal aorta and iliac arteries. No mesenteric or retroperitoneal lymphadenopathy identified. Mild diffuse anasarca-type change. There is caliber change of the colon at the level of the mid descending colon but no discrete obstruc ting mass, probably due to peristalsis. Numerous varices along the anterior pelvic wall extending to the groins. Bladder partially distended. Uterus surgically absent. No adnexal mass identified. There is small amount of cul-de-sac free fluid demonstrated. Neither ovary could be visualized. Some possible irregular soft tissue thickening in t he region of the vagina/cervix, refer to axial image 89 and 90. Bones: Degenerative changes at the hips. Osteopenia. Additional variable moderate degenerative disc d isease throughout. IMPRESSION: 1. CORRELATE FOR POSSIBLE MILD FLUID OVERLOAD STATE GIVEN SMALL RIGHT EFFUSION, MILD ANASARCA TYPE CH ANGES, AND SMALL PELVIC FREE FLUID. 2. POSTSURGICAL CHANGE ALONG THE STOMACH. UNABLE TO DETERMINE IF THIS REPRESENTS PRIOR DANIELA-EN-Y MICHEAL KARLA BYPASS. THE EXCLUDED PORTION OF THE PROXIMAL GASTRIC BODY APPEARS AIR DISTENDED. FURTHER CLINICAL CORRELATION WITH PATIENT'S SURGICAL HISTORY IS RECOMMENDED. NO OBSTRUCTIVE CHANGE IS IDENTIFIED. 3. MILD SMALL BOWEL FOLD THICKENING IN THE LEFT MID ABDOMEN COULD REPRESENT NONSPECIFIC ENTERITIS. 4. POSSIBLE IRREGULAR SOFT TISSUE THICKENING IN THE REGION OF THE VAGINA/CERVIX. CORRELATE WITH PHYSI SAURABH EXAM FINDINGS TO EXCLUDE POSSIBLE NEOPLASTIC CAUSE OF THICKENING.
== END | disposition home or self-care (01) ==
LOC: RADCTMAIN 13:40
PROVIDERS: ATTEND Family Medicine
DX: R93.5 Abnormal findings on diagnostic imaging of other abdominal regions, including retroperitoneum (principal); Z98.890 Other specified postprocedural states
CPT/HCPCS: 82565; 84520; 74177; 36415; Q9967

== ENCOUNTER → 2018-09-27 | Outpatient (CLI) | payer MEDICARE, BC ==
--- NOTE | 2018-09-27 09:20 | CT ---
EXAMINATION TYPE: CT abdomen pelvis wo con DATE OF EXAM: 09/27/2018 HISTORY: Abdominal pain per order. Bilateral flank pain for [address] DLP: 750 mGycm. Automated Exposure Control for Dose Reduction was Utilized. TECHNIQUE: CT scan of the abdomen and pelvis is performed without oral or IV contrast. COMPARISON: CT abdomen and pelvis November 30, 2017 FINDINGS: Within the limitations of a non-contrast study, the following observations are made. LUNG BASES: Cardiomegaly with right-sided pacemaker leads is redemonstrated. There is bibasilar linea r scarring and/or atelectasis again seen. Stable tiny right pleural effusion noted. LIVER/GB: Simple appearing thin-walled cysts throughout the liver are again seen, largest right hepat ic dome measures 3.4 x 3.1 cm image 13 with slight rim calcification anteriorly, no significant dangelo e from prior. PANCREAS: No significant abnormality is seen. SPLEEN: Stable superior splenule axial image 17. ADRENALS: No significant abnormality is seen. KIDNEYS: There is 3 mm calculus lower pole left kidney coronal image 47. Some cortical thinning is re demonstrated bilaterally. No hydronephrosis or obstructing ureteral calculi clearly seen. BOWEL: Evaluation while suboptimal study due to lack of enteric contrast. Gastric bypass surgical anabel nges epigastric region are redemonstrated. No suspicious small large bowel dilatation.. GENITAL ORGANS: Uterus is surgically absent or markedly atrophic. LYMPH NODES: No greater than 1cm abdominal or pelvic lymph nodes are appreciated. OSSEOUS STRUCTURES: Scoliotic curvature is again seen. Multilevel spurring and disc space narrowing i s redemonstrated. There is moderate narrowing and mild spurring in both hip joints again seen. OTHER: Moderate to severe calcified plaque of the aorta extends into the iliac branch vessels. Prominent vessels or varices anterior abdominal wall of the pelvis are redemonstrated. IMPRESSION: There is 3 mm nonobstructing lower pole left renal calculus in retrospect not significant ly changed from prior. No suspicious new or acute finding identified to account for patient's symptom s of persistent pain.
== END | disposition home or self-care (01) ==
LOC: RADCTMAIN 07:47
PROVIDERS: ATTEND Family Medicine
DX: N20.0 Calculus of kidney (principal); Z88.5 Allergy status to narcotic agent; Z88.1 Allergy status to other antibiotic agents
CPT/HCPCS: 74176

== ENCOUNTER → 2018-10-26 | Outpatient (CLI) | payer MEDICARE, BC ==
--- NOTE | 2018-10-26 14:40 | MM ---
Reason for exam: screening (asymptomatic). Last mammogram was performed 1 year and 2 months ago. History: Patient is postmenopausal. Family history of breast cancer in sister at age 50. Benign excisional biopsy of the left breast. Physical Findings: A clinical breast exam by your physician is recommended on an annual basis and results should be correlated with mammographic findings. MG 3D Screening Mammo W/Cad Bilateral CC and MLO view(s) were taken. Prior study comparison: August 31, 2017, bilateral MG 3d screening mammo w/cad. October 04, 2014, bilateral MG screening mammo w CAD. The breast tissue is heterogeneously dense. This may lower the sensitivity of mammography. There are benign appearing round vascular dystrophic calcifications bilaterally. There is no discrete abnormality. Benign lymph nodes. Left axillary pace maker. ASSESSMENT: Benign, BI-RAD 2 RECOMMENDATION: Routine screening mammogram of both breasts in 1 year.
== END | disposition home or self-care (01) ==
LOC: RADMAMWWP 10:29
PROVIDERS: ATTEND Family Medicine
DX: Z12.31 Encounter for screening mammogram for malignant neoplasm of breast (principal)
CPT/HCPCS: 77063; 77067

== ENCOUNTER 2018-12-01 08:55 | Day surgery (SDC) | payer MEDICARE, BC ==
[2018-11-29 15:48] VITALS: BMI 25.7
[~2018-12-01 08:55] MED LIST changes: -HYDROmorphone 1 MG/ML 1 ML SYRINGE IVP PRN; +LACTATED RINGERS 1,000 ML IV SCH; -MIDAZOLAM 2 MG/2 ML VIAL IV PRN; -ceFAZolin 1,000 MG in SODIUM CHLORIDE 0.9% IRRIGATIO 250 ML IRRIGATION ONE; -ceFAZolin 2 GM in SODIUM CHLORIDE 0.9% 100 ML IVPB ONE
[2018-12-01 10:15] VITALS: TEMP 98.6
[2018-12-01] MEDS ORDERED: LIDOCAINE 1% 20 ML VIAL (10MG/ML) FOR IV START INTRADERMA ONE (10:24)
[2018-12-01] MEDS ORDERED: LIDOCAINE 1% INJ 10MG/ML (20 ML MDV) ONE (10:56)
[2018-12-01] MEDS ORDERED: PROPOFOL 10 MG/ML 20 ML VIAL IV ONE (10:56)
--- NOTE | 2018-12-01 11:37 | P.PCN ---
Date of Procedure: 12/01/18 Procedure(s) Performed: BRIEF HISTORY: Patient is a 82-year-old, pleasant,, scheduled for an upper endoscopy as a part of evaluation of intermittent dysphagia to solids for the last 1 year duration.. PROCEDURE PERFORMED: Esophagogastroduodenoscopy. With biopsy PREOPERATIVE DIAGNOSIS: Intermittent dysphagia to solids. IV sedation per anesthesia. PROCEDURE: After informed consent was obtained, the patient was brought into the endoscopy unit. IV sedation was administered by Anesthesia under continuous monitoring. Initially the Olympus GIF-140 video endoscope was inserted into the mouth. Esophagus intubated with some mild to moderate difficulty suggestive of chronic of pharyngeal dysfunction. No Zenker's diverticulum identified.. It was gradually advanced into the stomach and duodenum and carefully examined. There was evidence of previous gastric stapling surgery noted. The bulb and the second part of the duodenum appeared normal. The scope at this time was withdrawn to the stomach, adequately insufflated with air, and upon careful examination, mucosa of the antrum, appeared normal. There was evidence of previous gastric stapling surgery. The proximal gastric pouch which had the body, cardia and the fundus of the stomach appeared normal. The scope was then withdrawn into the esophagus. The GE junction was located at 39 cm from the incisors. The esophagus appeared normal. There were 2 superficial erosions consistent with LA grade B reflux esophagitis. The rest of the esophagus appeared normal and the patient tolerated the procedure well. IMPRESSION: 1. 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 LA grade B reflux esophagitis 3. Evidence of previous gastric stapling surgery. RECOMMENDATIONS: The findings of this examination were discussed with the patient as well as her family. She was advised to follow with the biopsy re sults.. she will continue with acid suppressive therapy.
[2018-12-01 11:55] VITALS: BP 104/68; PULSE 60; RESP 16
== END 2018-12-01 12:07 | disposition home or self-care (01) ==
LOC: ORWHC2ENDO 08:55
PROVIDERS: ATTEND Internal Medicine Gastroenterology
DX: K21.0 Gastro-esophageal reflux disease with esophagitis (principal); J39.2 Other diseases of pharynx; Z98.84 Bariatric surgery status; R13.10 Dysphagia, unspecified; Z97.2 Presence of dental prosthetic device (complete) (partial); I48.91 Unspecified atrial fibrillation; I25.10 Atherosclerotic heart disease of native coronary artery without angina pectoris; I11.0 Hypertensive heart disease with heart failure; I50.9 Heart failure, unspecified; E78.5 Hyperlipidemia, unspecified; E07.9 Disorder of thyroid, unspecified; Z79.01 Long term (current) use of anticoagulants; Z79.899 Other long term (current) drug therapy; Z79.890 Hormone replacement therapy; Z91.018 Allergy to other foods; Z88.5 Allergy status to narcotic agent; Z95.810 Presence of automatic (implantable) cardiac defibrillator; Z86.73 Personal history of transient ischemic attack (TIA), and cerebral infarction without residual deficits; Z86.718 Personal history of other venous thrombosis and embolism
CPT/HCPCS: 88305; 43239; J2001; J2704

== ENCOUNTER 2019-06-02 09:16 | Inpatient (IN) | payer MEDICARE, BC ==
--- NOTE | 2019-06-02 09:49 | ED ---
General Adult HPI - General Chief complaint: Recheck/Abnormal Lab/Rx Stated complaint: hemorrhage Time Seen by Provider: 06/02/19 09:20 Source: patient, family, RN notes reviewed, old records reviewed Mode of arrival: wheelchair Limitations: no limitations - History of Present Illness Initial comments: This is an 83-year-old female presents emergency Department with a past medical history significant for pacemaker with defibrillator. Patient states she's also congestive heart. Patient states she is on eliquis. Patient states she got up this morning and went to the bathroom and it was quite orange in color he thought was blood and she states anytime she stands up a course out of her and she was concerned that it was blood per patient denies any abdominal pain. Patient denies any bright red blood. Patient denies any chest pain lightheadedness or dizziness. Patient denies any palpitations. Patient denies any shortness of breath or difficulty breathing. Patient states other than the orange color to her stool she has no other complaints today. Patient states she's been having these orange-colored stools for the last 2 or 3 days. - Related Data Home Medications Medication Instructions Recorded Confirmed Levothyroxine Sodium [Synthroid] 50 mcg PO QAM 11/04/15 12/01/18 Magnesium Oxide [Mag-Ox] 400 mg PO DAILY 11/04/15 12/01/18 Metoprolol Succinate (ER) [Toprol 50 mg PO QAM 11/04/15 12/01/18 Xl] Spironolactone [Aldactone] 12.5 mg PO DAILY 11/04/15 12/01/18 Acetaminophen [Tylenol] 650 mg PO Q6HR PRN 07/27/16 12/01/18 Pravastatin Sodium [Pravachol] 40 mg PO HS 07/27/16 12/01/18 Dofetilide [Tikosyn] 500 mcg PO Q12HR 11/29/18 12/01/18 Enalapril [Vasotec] 2.5 mg PO BID 11/29/18 12/01/18 Warfarin [Coumadin] 2 mg PO TUTHSA 11/29/18 12/01/18 Warfarin [Coumadin] 4 mg PO SUMOWEFR 11/29/18 12/01/18 Allergies Allergy/AdvReac Type Severity Reaction Status Date / Time monosodium glutamate [MSG] Allergy headache Verified 06/02/19 09:17 codeine AdvReac Nausea & Verified 06/02/19 09:17 Vomiting Review of Systems ROS Statement: Those systems with pertinent positive or pertinent negative responses have been documented in the HPI. ROS Other: All systems not noted in ROS Statement are negative. Past Medical History Past Medical History: Atrial Fibrillation, Coronary Artery Disease (CAD), Heart Failure, CVA/TIA, Deep Vein Thrombosis (DVT), Hyperlipidemia, Hypertension, Osteoarthritis (OA), Thyroid Disorder Additional Past Medical History / Comment(s): states "it feels like when I swallow something is causing what I am swallowing to go into my lungs,"HX UTI History of Any Multi-Drug Resistant Organisms: None Reported Past Surgical History: AICD, Cardiac Ablation, Section, Hysterectomy, Orthopedic Surgery, Pacemaker Additional Past Surgical History / Comment(s): BILATERAL KNEE,stomach stapled Past Anesthesia/Blood Transfusion Reactions: No Reported Reaction Additional Past Anesthesia/Blood Transfusion Reaction / Comment(s): no hx blood transfusion Type of Cardiac Device: Biventricular Pacemaker, Permanent Pacemaker, AICD Device Placement Date:: 2010 [facility] Past Psychological History: No Psychological Hx Reported Smoking Status: Never smoker Past Alcohol Use History: None Reported Past Drug Use History: None Reported - Past Family History Father Family Medical History: Cancer Additional Family Medical History / Comment(s): bowel Sister(s) Family Medical History: Cancer Additional Family Medical History / Comment(s): breast General Exam - General Exam Comments Initial Comments: GENERAL: Patient is well-developed and well-nourished. Patient is nontoxic and well- hydrated and is in no acute distress. ENT: Neck is soft and supple. No significant lymphadenopathy is noted. Oropharynx is clear. Moist mucous membranes. Neck has full range of motion without eliciting any pain. EYES: The sclera were anicteric and conjunctiva were pink and moist. Extraocular movements were intact and pupils were equal round and reactive to light. Eyelids were unremarkable. PULMONARY: Unlabored respirations. Good breath sounds bilaterally. No audible rales rhonchi or wheezing was noted. CARDIOVASCULAR: There is a regular rate and rhythm without any murmurs gallops or rubs. ABDOMEN: Soft and nontender with normal bowel sounds. RECTAL: Patient has external hemorrhoid does not appear to be bleeding. Stool was brownish yellow in color SKIN: Skin is clear with no lesions or rashes and otherwise unremarkable. NEUROLOGIC: Patient is alert and oriented x3. Cranial nerves II through XII are grossly intact. Motor and sensory are also intact. Normal speech, volume and content. Symmetrical smile. MUSCULOSKELETAL: Normal extremities with adequate strength and full range of motion. LYMPHATICS: No significant lymphadenopathy is noted PSYCHIATRIC: Normal psychiatric evaluation. Limitations: no limitations Course Vital Signs 06/02/19 06/02/19 06/02/19 09:18 09:47 10:00 Temperature 97.9 F Pulse Rate 66 62 Respiratory 18 6 L Rate Blood Pressure 134/88 130/75 130/75 O2 Sat by Pulse 100 98 97 Oximetry 06/02/19 11:18 Temperature Pulse Rate 73 Respiratory 17 Rate Blood Pressure 123/88 O2 Sat by Pulse 96 Oximetry Medical Decision Making - Medical Decision Making Patient hemoglobin is in the normal range. Patient states she continues to have bowel movements in origin the emergency department. I spoke with Dr. Chacon and she agreed to admit the patient admitted the patient wrote admitting orders. - Lab Data Result diagrams: 06/02/19 09:58 06/02/19 09:58 Lab Results 06/02/19 06/02/19 06/02/19 Range/Units 09:58 09:58 09:58 WBC 5.4 (3.8-10.6) k/uL RBC 4.82 (3.80-5.40) m/uL Hgb 13.7 (11.4-16.0) gm/dL Hct 44.7 (34.0-46.0) % MCV 92.8 (80.0-100.0) fL MCH 28.4 (25.0-35.0) pg MCHC 30.7 L (31.0-37.0) g/dL RDW 14.4 (11.5-15.5) % Plt Count 227 (150-450) k/uL Neutrophils % 47 % Lymphocytes % 37 % Monocytes % 9 % Eosinophils % 2 % Basophils % 2 % Neutrophils # 2.6 (1.3-7.7) k/uL Lymphocytes # 2.0 (1.0-4.8) k/uL Monocytes # 0.5 (0-1.0) k/uL Eosinophils # 0.1 (0-0.7) k/uL Basophils # 0.1 (0-0.2) k/uL Hypochromasia Slight PT 13.2 H (9.0-12.0) sec INR 1.3 H (<1.2) APTT 23.6 (22.0-30.0) sec Sodium (137-145) mmol/L Potassium (3.5-5.1) mmol/L Chloride (98-107) mmol/L Carbon Dioxide (22-30) mmol/L Anion Gap mmol/L BUN (7-17) mg/dL Creatinine (0.52-1.04) mg/dL Est GFR (CKD-EPI)AfAm (>60 ml/min/1.73 sqM) Est GFR (CKD-EPI)NonAf (>60 ml/min/1.73 sqM) Glucose (74-99) mg/dL Calcium (8.4-10.2) mg/dL Total Bilirubin (0.2-1.3) mg/dL AST (14-36) U/L ALT (4-34) U/L Alkaline Phosphatase (38-126) U/L Total Protein (6.3-8.2) g/dL Albumin (3.5-5.0) g/dL Stool Occult Blood Positive H (Negative) 06/02/19 Range/Units 09:58 WBC (3.8-10.6) k/uL RBC (3.80-5.40) m/uL Hgb (11.4-16.0) gm/dL Hct (34.0-46.0) % MCV (80.0-100.0) fL MCH (25.0-35.0) pg MCHC (31.0-37.0) g/dL RDW (11.5-15.5) % Plt Count (150-450) k/uL Neutrophils % % Lymphocytes % % Monocytes % % Eosinophils % % Basophils % % Neutrophils # (1.3-7.7) k/uL Lymphocytes # (1.0-4.8) k/uL Monocytes # (0-1.0) k/uL Eosinophils # (0-0.7) k/uL Basophils # (0-0.2) k/uL Hypochromasia PT (9.0-12.0) sec INR (<1.2) APTT (22.0-30.0) sec Sodium 140 (137-145) mmol/L Potassium 4.2 (3.5-5.1) mmol/L Chloride 107 (98-107) mmol/L Carbon Dioxide 30 (22-30) mmol/L Anion Gap 3 mmol/L BUN 23 H (7-17) mg/dL Creatinine 1.04 (0.52-1.04) mg/dL Est GFR (CKD-EPI)AfAm 57 (>60 ml/min/1.73 sqM) Est GFR (CKD-EPI)NonAf 50 (>60 ml/min/1.73 sqM) Glucose 92 (74-99) mg/dL Calcium 8.8 (8.4-10.2) mg/dL Total Bilirubin 0.8 (0.2-1.3) mg/dL AST 26 (14-36) U/L ALT 11 (4-34) U/L Alkaline Phosphatase 68 (38-126) U/L Total Protein 5.6 L (6.3-8.2) g/dL Albumin 2.9 L (3.5-5.0) g/dL Stool Occult Blood (Negative) Disposition Clinical Impression: GI bleed Disposition: ADMITTED IP TO THIS [facility] Time of Disposition: 11:58
[2019-06-02 10:06] LABS: Basophils # (A) 0.1 k/uL (0-0.2); Basophils % (A) 2 %; Eosinophils # (A) 0.1 k/uL (0-0.7); Eosinophils % (A) 2 %; HCT 44.7 % (34.0-46.0); HGB 13.7 gm/dL (11.4-16.0); Hypochromasia Slight; Lymphocytes % (A) 37 %; MCH 28.4 pg (25.0-35.0); MCHC 30.7 g/dL (31.0-37.0); MCV 92.8 fL (80.0-100.0); Mean Platelet Volume 7.8; Monocytes # (A) 0.5 k/uL (0-1.0); Monocytes % (A) 9 %; Neutrophils # (A) 2.6 k/uL (1.3-7.7); Neutrophils % (A) 47 %; Platelet Count 227 k/uL (150-450); RBC 4.82 m/uL (3.80-5.40); RDW 14.4 % (11.5-15.5); WBC 5.4 k/uL (3.8-10.6)
[2019-06-02 10:15] LABS: Albumin 2.9 g/dL (3.5-5.0); Calcium 8.8 mg/dL (8.4-10.2); Potassium 4.2 mmol/L (3.5-5.1); Total Bilirubin 0.8 mg/dL (0.2-1.3); Total Protein 5.6 g/dL (6.3-8.2)
[2019-06-02 10:25] LABS: INR 1.3 (<1.2); Partial Thromboplastin Time 23.6 sec (22.0-30.0); Prothrombin Time 13.2 sec (9.0-12.0)
[2019-06-02] MEDS ORDERED: SODIUM CHLORIDE 0.9% 1,000 ML IV ONE (11:58)
--- NOTE | 2019-06-03 08:07 | P.HPIM ---
History of Present Illness H&P Date: 06/03/19 This is a pleasant 83-year-old patient who was seen outpatient by Dr. Dorado. Past medical history significant for atrial fibrillation, coronary artery disease, heart failure, CVA, hyperlipidemia, hypertension, osteoarthritis, hypothyroidism, DVT. History of AICD implantation in 2010. Denies any history of diabetes. Has never smoked. She presented to the emergency center complaining of yellow diarrhea stool. Patient states that every time she stands up she has a bowel movement. Due to the orange color patient was concerned that blood was in the stool. Patient denies any abdominal pain. Denies any black tarry stool or bright red blood. He denies any chest pain or lightheadedness. Denies any palpitations or shortness of breath. Patient has been having the orange color stools for the last 2-3 days. At this time patient is resting comfortably in bed in no acute distress. Patient continues to have right lower quadrant pain. Patient does not recall her last colonoscopy. She is on a eliquis for atrial fibrillation. Hemoglobin was 13.7 last night 14.0 this morning. Patient has been afebrile. Heart rate 81, blood pressure 108/69 pulse ox 97% on room air, respirations 16 and u nlabored. Patient denies any nausea or vomiting. Patient continues to have diarrhea at this time. No bright red colors or black tarry stool. Review of Systems Review Of Systems: Constitutional: No fever, no chills, no night sweats. No weight change. No weakness, fatigue or lethargy. No daytime sleepiness. EENT: No headache. No blurred vision or double vision, no loss of vision. No loss of Hearing, no ringing in the ears, no dizziness. No nasal drainage or co ngestion. No epistaxis. No sore throat. Lungs: No shortness of breath, cough, no sputum production. No wheezing. Cardiovascular: No chest pain, no lower extremity edema. No palpitations. No paroxysmal nocturnal dyspnea. No orthopnea. No lightheadedness or dizziness. No syncopal episodes. Abdominal: Reports abdominal discomfort right lower quadrant. No nausea, vomiting. Reports diarrhea. Reports orange-colored stool No constipation. No bloody or tarry stools. no loss of appetite. Genitourinary: No dysuria, increased frequency, urgency. No urinary retention. Musculoskeletal: No myalgias. No muscle weakness, no gait dysfunction, no frequent falls. No back pain. No neck pain. Integumentary: No wounds, no lesions. No rash or pruritus. No unusual bruising. No change in hair or nails. Neurologic: No aphasia. No facial droop. No change in mentation. No head injury. No headache. No paralysis. No paresthesia. Psychiatric: No depression. No anxiety. No mood swings. Endocrine: No abnormal blood sugars. No weight change. No excessive sweating or thirst. Past Medical History Past Medical History: Atrial Fibrillation, Coronary Artery Disease (CAD), Heart Failure, CVA/TIA, Deep Vein Thrombosis (DVT), Hyperlipidemia, Hypertension, Osteoarthritis (OA), Thyroid Disorder Additional Past Medical History / Comment(s): states "it feels like when I swallow something is causing what I am swallowing to go into my lungs,"HX UTI History of Any Multi-Drug Resistant Organisms: None Reported Past Surgical History: AICD, Cardiac Ablation, Section, Hysterectomy, Orthopedic Surgery, Pacemaker Additional Past Surgical History / Comment(s): BILATERAL KNEE,stomach stapled Past Anesthesia/Blood Transfusion Reactions: No Reported Reaction Additional Past Anesthesia/Blood Transfusion Reaction / Comment(s): no hx blood transfusion Type of Cardiac Device: Biventricular Pacemaker, Permanent Pacemaker, AICD Device Placement Date:: 2010 [facility] Past Psychological History: No Psychological Hx Reported Smoking Status: Never smoker Past Alcohol Use History: None Reported Past Drug Use History: None Reported - Past Family History Father Family Medical History: Cancer Additional Family Medical History / Comment(s): bowel Sister(s) Family Medical History: Cancer Additional Family Medical History / Comment(s): breast Medications and Allergies Home Medications Medication Instructions Recorded Confirmed Type Metoprolol Succinate (ER) [Toprol 50 mg PO QAM 11/04/15 06/02/19 History Xl] Apixaban [Eliquis] 2.5 mg PO BID 06/02/19 06/02/19 History Furosemide [Lasix] 20 mg PO Q48H 06/02/19 06/02/19 History LORazepam [Ativan] 0.5 mg PO DAILY PRN 06/02/19 06/02/19 History Levothyroxine Sodium [Synthroid] 50 mcg PO DAILY 06/02/19 06/02/19 History Metoprolol Succinate (ER) [Toprol 100 mg PO DAILY 06/02/19 06/02/19 History Xl] Pravastatin Sodium [Pravachol] 40 mg PO DAILY@1500 06/02/19 06/02/19 History Allergies Allergy/AdvReac Type Severity Reaction Status Date / Time monosodium glutamate [MSG] Allergy headache Verified 06/02/19 12:25 codeine AdvReac Nausea & Verified 06/02/19 12:25 Vomiting Physical Exam Vitals: Vital Signs Temp Pulse Pulse Pulse Resp BP BP 06/03/19 04:28 97.2 F L 81 16 108/69 06/02/19 23:23 16 06/02/19 20:29 97.4 F L 76 16 137/83 06/02/19 14:30 16 06/02/19 14:17 98.0 F 80 18 138/86 06/02/19 12:40 97.5 F L 74 16 141/94 06/02/19 12:20 86 16 140/74 06/02/19 11:18 73 17 123/88 06/02/19 10:00 62 6 L 130/75 06/02/19 09:47 130/75 06/02/19 09:18 97.9 F 66 18 134/88 Pulse Ox 06/03/19 04:28 97 06/02/19 23:23 06/02/19 20:29 99 06/02/19 14:30 06/02/19 14:17 95 06/02/19 12:40 97 06/02/19 12:20 96 06/02/19 11:18 96 06/02/19 10:00 97 06/02/19 09:47 98 06/02/19 09:18 100 Intake and Output 06/02/19 06/03/19 06/03/19 22:59 06:59 14:59 Other: Voiding Method Toilet # Voids 1 2 General Appearance: Alert, cooperative, no distress, appears stated age. Neck HEENT: Supple, no lymphadenopathy, no thyroid enlargement, no carotid bruits. Lungs: Clear to auscultation without crackles or wheezes no rhonchi, no deformity. Chest Wall: Chest wall normal expansion with deep inspiration no tenderness and no deformity was found on exam, no costochondral pain or discomfort. Heart: Regular rate and rhythm, S1, S2 normal, no murmur, rub or gallop. Back: Symmetric, no curvature, ROM normal, no CVA tenderness. Abdomen: Soft, right lower quadrant tenderness, no rebound or rigidity, no hepatosplenomegaly. Extremities: Extremities normal, atraumatic, no cyanosis or edema. Pulses: 2+ and symmetric. Skin: Skin color, texture, tugor normal, no rashes or lesions. Neurologic: Alert oriented x3 cranial nerves II through XII intact, no motor deficit, no abnormal balance or gait Results CBC & Chem 7: 06/03/19 10:36 06/02/19 09:58 Labs: Abnormal Lab Results - Last 24 Hours (Table) 06/02/19 06/02/19 06/02/19 Range/Units 09:58 09:58 09:58 MCHC 30.7 L (31.0-37.0) g/dL PT 13.2 H (9.0-12.0) sec INR 1.3 H (<1.2) BUN (7-17) mg/dL Total Protein (6.3-8.2) g/dL Albumin (3.5-5.0) g/dL Stool Occult Blood Positive H (Negative) 06/02/19 Range/Units 09:58 MCHC (31.0-37.0) g/dL PT (9.0-12.0) sec INR (<1.2) BUN 23 H (7-17) mg/dL Total Protein 5.6 L (6.3-8.2) g/dL Albumin 2.9 L (3.5-5.0) g/dL Stool Occult Blood (Negative) Thrombosis Risk Factor Assmnt - Choose All That Apply Any of the Below Risk Factors Present?: No Other Risk Factors: Yes Each Risk Factor Represents 3 Points: Age 75 years or older, History of DVT/PE Thrombosis Risk Factor Assessment Total Risk Factor Score: 6 Thrombosis Risk Factor Assessment Level: High Risk Assessment and Plan Plan: 1. GI bleed with positive Hemoccult possible colitis. Further recommendations by gastroenterology. Start Flagyl and levofloxacin. Sed rate, CRP, lipase, lactic acid, and stool culture including WBC ordered. 2. Atrial fibrillation. Hold eliquis 3. Hypertension. Metoprolol 150 mg daily 4. Hyperlipidemia pravastatin 40 mg by mouth daily 5. Hypothyroidism levothyroxine 50 MCG's by mouth daily 6. History of CVA, stable 7. History of heart failure Lasix 20 mg every 48 hours 8. Coronary artery disease, as noted above DVT prophylaxis: Ambulation at this time GI prophylaxis. Protonix Discharge plan: A minimum of 2 nights day Impression and plan of care have been directed as dictated by the signing physician. Leah Wei nurse practitioner acting as scribe for signing physician.
[2019-06-03] MEDS: MORPHINE SULFATE 2 MG/ML SYRINGE IVP PRN ×2 (09:21→20:07)
[2019-06-03] MEDS: LEVOFLOXACIN 500 MG TAB PO SCH (10:46)
[2019-06-03] MEDS: METOPROLOL SUCCINATE (ER) 100 MG TAB.ER.24H PO SCH (10:46)
[2019-06-03] MEDS: FUROSEMIDE 20 MG TAB PO SCH (10:46)
[2019-06-03] MEDS: LEVOTHYROXINE 50 MCG TAB PO SCH (10:46)
[2019-06-03] MEDS: METOPROLOL SUCCINATE (ER) 50 MG TAB.ER.24H PO SCH (10:47)
[2019-06-03 11:16] LABS: C Reactive Protein <5.0 mg/L (<10.0)
[2019-06-03 11:19] LABS: HCT 46.4 % (34.0-46.0); Hypochromasia Moderate; MCH 27.9 pg (25.0-35.0); MCHC 30.2 g/dL (31.0-37.0); MCV 92.4 fL (80.0-100.0); Mean Platelet Volume 7.8; Platelet Count 238 k/uL (150-450); RBC 5.02 m/uL (3.80-5.40); RDW 14.2 % (11.5-15.5); WBC 5.2 k/uL (3.8-10.6)
--- NOTE | 2019-06-03 11:57 | CONS ---
CONSULTATION DATE OF SERVICE: 06/03/2019. REQUESTING PHYSICIAN: Dr. Mayorga. REASON FOR CONSULTATION: Change in bowel habits/GI bleed. HISTORY OF PRESENT ILLNESS: The patient is an 83 -year-old pleasant white female came to the emergency room complaining of orange colored stools. The patient got concerned that she was actively bleeding. She has history of atrial fibrillation on Eliquis. She had about 3 episodes of orange colored stools and yesterday states she had 3 more episodes. She got concerned, came in the emergency room and subsequently admitted to the hospital for further evaluation. Hemoglobin was stable at 13.5 g/dL. This morning after the nursing staff who witnessed the stool it was somewhat pale in color, but there was no blood noted. She also complains of lower abdominal discomfort, mostly in the right lower quadrant area. Denies any nausea, vomiting. No fever, chills, or night sweats. Never had these symptoms in the past. Her last colonoscopy was eight or nine years ago, according to the patient it was done by me which was within normal limits. She denies any recent travel history. Reports no antibiotic use. PAST MEDICAL HISTORY: Significant for hypertension, hypercholesteremia, hypothyroidism, atrial fibrillation on Coumadin. MEDICATIONS: At home include: Coumadin, Vasotec, Tikosyn, Pravachol, Tylenol, Aldactone, Toprol, Synthroid, magnesium oxide. ALLERGIES: CODEINE AND MSG. PAST SURGICAL HISTORY: , hysterectomy, cardiac ablation, AICD placement, stomach stapling surgery done. SOCIAL HISTORY: No smoking. No alcohol use. FAMILY HISTORY: Father from some kind of a bowel cancer. Mother had breast cancer. Sister had breast cancer. REVIEW OF SYSTEMS: CARDIOPULMONARY: She denies any chest pain or shortness of breath. no dysuria or hematuria. MUSCULOSKELETAL unremarkable. SKIN unremarkable. ENDOCRINE unremarkable. PSYCHIATRIC unremarkable. NEUROLOGY unremarkable. ENT/vision unremarkable. CONSTITUTIONAL: No recent weight loss. No fever, chills, night sweats. PHYSICAL EXAMINATION: She appears comfortable. No apparent distress. Vital signs stable. Blood pressure is 133/87, pulse rate 76, temperature 97.4. HEENT examination unremarkable. Conjunctivae pink. Sclerae anicteric. Oral cavity no lesions. NECK: No JVD or lymph node enlargement. CHEST: Clear to auscultation. CARDIAC: Heart regular rate and rhythm. ABDOMEN: Soft. Very minimal tenderness in the right lower quadrant area. EXTREMITIES no pedal edema. SKIN no rashes. NEUROLOGIC: Alert and oriented x3. No focal deficits. LABS: WBC 5.4, hemoglobin 13.7, platelets normal. INR 1.3. BUN 23, creatinine 1.04. Stool occult blood was positive. Rest of the labs today normal. IMPRESSION: 1. Altered bowel movements with some loose orangish -colored stool for the last 3 days duration, but clinically no evidence of active bleeding as per the nursing staff. Hemoglobin stable at 13.7 g/dL. Stool was noted to have a occult blood that was positive. Rule out infectious colitis. Last colonoscopy according to the patient, which was done by me was within normal limits. 2. History of atrial fibrillation, on Coumadin. 3. History of hypertension and hypercholesterolemia. RECOMMENDATIONS: 1. Start on clear liquid diet and advance as tolerated. 2. We will obtain stool studies. 3. Monitor her symptoms closely. 4. No plans for any endoscopy intervention at the present time. 5. We will repeat labs tomorrow morning. Thank you for this consultation. MMODL / IJN: [id number] /
[2019-06-03 12:14] LABS: Band Neutrophils % 1 %; Basophils # (M) 0.05 k/uL (0-0.2); Eosinophils # (M) 0.05 k/uL (0-0.7); Nucleated Red Blood Cells 0 /100 WBC (0-0)
[2019-06-03 12:18] LABS: Lymphocytes # (M) 1.09 k/uL (1.0-4.8); Monocytes # (M) 0.31 k/uL (0-1.0); Neutrophils % (M) 72 %; Total Cells Counted 200
[2019-06-03] MEDS: metroNIDAZOLE 500 MG TAB PO SCH ×3 (13:55→21:33)
[2019-06-03] MEDS: PRAVASTATIN SODIUM 40 MG TAB PO SCH (13:59)
[2019-06-03] MEDS: ONDANSETRON 4 MG/2 ML VIAL IVP PRN (22:33)
[2019-06-03] MEDS: LORazepam 0.5 MG TAB PO PRN (23:03)
[2019-06-04] MEDS: LEVOTHYROXINE 50 MCG TAB PO SCH (05:13)
[2019-06-04 09:11] LABS: Basophils % (A) 1 %; Eosinophils % (A) 0 %; HCT 47.2 % (34.0-46.0); HGB 14.1 gm/dL (11.4-16.0); Hypochromasia Moderate; Lymphocytes # (A) 1.4 k/uL (1.0-4.8); Lymphocytes % (A) 16 %; MCH 28.1 pg (25.0-35.0); MCHC 29.9 g/dL (31.0-37.0); MCV 93.9 fL (80.0-100.0); Mean Platelet Volume 7.7; Monocytes # (A) 0.4 k/uL (0-1.0); Monocytes % (A) 5 %; Neutrophils # (A) 6.6 k/uL (1.3-7.7); Neutrophils % (A) 77 %; Platelet Count 247 k/uL (150-450); RBC 5.02 m/uL (3.80-5.40); RDW 14.5 % (11.5-15.5); WBC 8.6 k/uL (3.8-10.6)
[2019-06-04] MEDS: metroNIDAZOLE 500 MG TAB PO SCH ×4 (09:18→21:23)
[2019-06-04] MEDS: METOPROLOL SUCCINATE (ER) 50 MG TAB.ER.24H PO SCH (09:19)
[2019-06-04] MEDS: METOPROLOL SUCCINATE (ER) 100 MG TAB.ER.24H PO SCH (09:19)
[2019-06-04] MEDS: LEVOFLOXACIN 500 MG TAB PO SCH (11:07)
[2019-06-04 11:34] LABS: Albumin 2.4 g/dL (3.5-5.0); Calcium 8.4 mg/dL (8.4-10.2); Potassium 4.9 mmol/L (3.5-5.1); Total Bilirubin 0.5 mg/dL (0.2-1.3)
[2019-06-04] MEDS: IOPAMIDOL CONTRAST (ORAL USE) VIAL PO PRN ×2 (12:18→13:21)
[2019-06-04] MEDS: ONDANSETRON 4 MG/2 ML VIAL IVP PRN ×2 (13:09→21:22)
[2019-06-04] MEDS: SODIUM CHLORIDE 0.9% 1,000 ML IV SCH ×2 (13:13→18:07)
--- NOTE | 2019-06-04 13:28 | P.PN ---
Subjective Progress Note Date: 06/04/19 This is a pleasant 83-year-old patient who was seen outpatient by Dr. Dorado. Past medical history significant for atrial fibrillation, coronary artery disease, heart failure, CVA, hyperlipidemia, hypertension, osteoarthritis, hypothyroidism, DVT. History of AICD implantation in 2010. Denies any history of diabetes. Has never smoked. She presented to the emergency center complaining of yellow diarrhea stool. Patient states that every time she stands up she has a bowel movement. Due to the orange color patient was concerned that blood was in the stool. Patient denies any abdominal pain. Denies any black tarry stool or bright red blood. He denies any chest pain or lightheadedness. Denies any palpitations or shortness of breath. Patient has been having the orange color stools for the last 2-3 days. At this time patient is resting comfortably in bed in no acute distress. Patient continues to have right lower quadrant pain. Patient does not recall her last colonoscopy. She is on a eliquis for atrial fibrillation. Hemoglobin was 13.7 last night 14.0 this morning. Patient has been afebrile. Heart rate 81, blood pressure 108/69 pulse ox 97% on room air, respirations 16 and unlabo red. Patient denies any nausea or vomiting. Patient continues to have diarrhea at this time. No bright red colors or black tarry stool. 06/03: Patient has been seen by Dr. Bergman with recommendations to start clear liquid diet and advance as tolerated. Obtain stool studies, monitor symptoms closely. No plans for endoscopy. Repeat hemoglobin is 14.1. Stool for stool studies including C. difficile colitis, lactoferrin and stool culture have been uncollected has patient is now constipated. Patient states she normally does not have a bowel movement unless she takes stool softeners or uses an enema. Patient is complaining of nausea this morning as well as bilateral lower quadrant abdominal pain. She is not tolerating regular diet. Patient will be placed on clear liquid diet. CAT scan of the abdomen and pelvis ordered and IV fluids started. Repeat BUN 24 and creatinine 1.16. Review of Systems Review Of Systems: Constitutional: No fever, no chills, no night sweats. No weight change. No weakness, fatigue or lethargy. No daytime sleepiness. EENT: No headache. No blurred vision or double vision, no loss of vision. No loss of Hearing, no ringing in the ears, no dizziness. No nasal drainage or congestion. No epistaxis. No sore throat. Lungs: No shortness of breath, cough, no sputum production. No wheezing. Cardiovascular: No chest pain, no lower extremity edema. No palpitations. No paroxysmal nocturnal dyspnea. No orthopnea. No lightheadedness or dizziness. No syncopal episodes. Abdominal: Reports abdominal pain bilateral lower quadrant. Report nausea without vomiting. Denies diarrhea. Reports constipation. No bloody or tarry stools. Reports loss of appetite. Genitourinary: No dysuria, increased frequency, urgency. No urinary retention. Musculoskeletal: No myalgias. No muscle weakness, no gait dysfunction, no frequent falls. No back pain. No neck pain. Integumentary: No wounds, no lesions. No rash or pruritus. No unusual bruising. No change in hair or nails. Neurologic: No aphasia. No facial droop. No change in mentation. No head injury. No headache. No paralysis. No paresthesia. Psychiatric: No depression. No anxiety. No mood swings. Endocrine: No abnormal blood sugars. No weight change. No excessive sweating or thirst. Objective - Vital Signs Vital signs: Vital Signs Temp 96.8 F L 06/04/19 05:00 Pulse 72 06/04/19 05:00 Resp 20 06/04/19 05:00 BP 110/75 06/04/19 05:00 Pulse Ox 93 L 06/04/19 05:00 Intake & Output 06/03/19 06/04/19 06/04/19 18:59 06:59 18:59 Intake Total 540 460 Output Total 30 Balance 540 430 Intake: Oral 540 460 Output: Oral Regurgitation 30 Other: Voiding Method Toilet Toilet # Voids 3 2 # Bowel Movements 1 - Exam General Appearance: Alert, cooperative, no distress, appears stated age. Neck HEENT: Supple, no lymphadenopathy, no thyroid enlargement, no carotid bruits. Lungs: Clear to auscultation without crackles or wheezes no rhonchi, no deformity. Chest Wall: Chest wall normal expansion with deep inspiration no tenderness and no deformity was found on exam, no costochondral pain or discomfort. Heart: Regular rate and rhythm, S1, S2 normal, no murmur, rub or gallop. Back: Symmetric, no curvature, ROM normal, no CVA tenderness. Abdomen: Soft, bilateral lower quadrant tenderness, no rebound or rigidity, no hepatosplenomegaly. Extremities: Extremities normal, atraumatic, no cyanosis or edema. Pulses: 2+ and symmetric. Skin: Skin color, texture, tugor normal, no rashes or lesions. Neurologic: Alert oriented x3 cranial nerves II through XII intact, no motor deficit, no abnormal balance or gait - Labs CBC & Chem 7: 06/04/19 08:57 06/04/19 08:57 Labs: Abnormal Lab Results - Last 24 Hours (Table) 06/03/19 06/04/19 Range/Units 10:36 08:57 Hct 46.4 H 47.2 H (34.0-46.0) % MCHC 30.2 L 29.9 L (31.0-37.0) g/dL Assessment and Plan Plan: 1. GI bleed with positive Hemoccult possible colitis. Gastroenterology consult appreciated. Continue Flagyl and levofloxacin. CAT scan of the abdomen and pelvis with contrast. Patient started on IV fluids 75 mL per hour. 2. Atrial fibrillation, paroxysmal. Hold eliquis 3. Hypertension. Metoprolol 150 mg daily 4. Hyperlipidemia pravastatin 40 mg by mouth daily 5. Hypothyroidism levothyroxine 50 MCG's by mouth daily 6. History of CVA, stable 7. Chronic systolic heart failure Lasix 20 mg every 48 hours 8. Coronary artery disease, as noted above DVT prophylaxis: Ambulation at this time GI prophylaxis. Protonix Discharge plan: Home Impression and plan of care have been directed as dictated by the signing physician. Ginny Morillo nurse practitioner acting as scribe for signing ph ysician.
--- NOTE | 2019-06-04 14:15 | CT ---
EXAMINATION TYPE: CT abdomen pelvis w con DATE OF EXAM: 06/04/2019 COMPARISON: 04/07/2019 HISTORY: Diarrhea and nausea CT DLP: 770.2 mGycm Automated exposure control for dose reduction was used. CONTRAST: CT scan of the abdomen pelvis is performed with IV Contrast, patient injected with 80 mL of Isovue 30 0. FINDINGS- LUNG BASES-there are bilateral pleural effusions and basilar consolidation. Heart is enlarged and the re is cardiac leads.. LIVER/GB-stable perihepatic lesions most likely in the basis of cysts. Largest lesion measures 3.0 cm and 5 Hounsfield units compatible simple cyst. PANCREAS- No gross abnormality is seen. SPLEEN- No gross abnormality is seen. ADRENALS- No gross abnormality is seen. KIDNEYS/BLADDER-no hydronephrosis or nephrolithiasis.. BOWEL-bowel gas pattern nonspecific. There is postsurgical change involving the stomach. LYMPH NODES- No greater than 1cm abdominal or pelvic lymph nodes areappreciated. OSSEOUS STRUCTURES-curvature the spine with hypertrophic and degenerative changes.. OTHER- there is anasarca. Subcutaneous varices are seen in the anterior lower pelvic wall. IMPRESSION- 1. Nonspecific abdomen with no evidence to suggest colitis. 2. Bilateral pleural effusions and basilar consolidation. 3. Postsurgical change involving the stomach
[2019-06-04] MEDS: PRAVASTATIN SODIUM 40 MG TAB PO SCH (14:32)
[2019-06-04] MEDS: POLYETHYLENE GLYCOL 3350 17 GM POWD.PACK PO SCH (14:37)
[2019-06-04] MEDS ORDERED: ACETAMINOPHEN TAB 500 MG TAB PO PRN (17:42)
--- NOTE | 2019-06-04 20:28 | PN ---
PROGRESS NOTE DATE OF DICTATION: 06/04/2019 This patient is an 83-year-old pleasant white female admitted to the hospital with lower abdominal pain and some change in her bowel habits. She thought she had some rectal bleeding and came into the emergency room. She was subsequently admitted to the hospital for further evaluation. She did have a CT of the abdomen and pelvis done yesterday that showed no evidence of colitis; bilateral pleural effusions. She denies any diarrhea. She reports no rectal bleeding. She is on a clear liquid diet, tolerating well. Abdominal pain has improved. PHYSICAL EXAMINATION: Appears comfortable. No apparent distress. Vital signs are stable. Blood pressure 121/82, pulse rate 82, temperature 97.4. HEENT examination unremarkable. Conjunctivae pink. Sclerae anicteric. Oral cavity no lesions. NECK: No JVD or lymph node enlargement. CHEST: Clear to auscultation. HEART: Regular rate and rhythm. ABDOMEN: Soft. Bowel sounds are positive. No organomegaly. EXTREMITIES: No pedal edema. SKIN: No rashes. NEUROLOGIC: Alert and oriented x3. No focal deficits. LABS: WBC 8.6, hemoglobin 14.1, platelets normal. Basic metabolic panel is within normal limits. BUN is 24, creatinine 1.16. Stool Hemoccult was positive. IMPRESSION: 1. Questionable rectal bleeding and Hemoccult-positive stool with some change in bowel habits and lower abdominal pain with a stable hemoglobin. CT of the abdomen did not show any evidence of acute colitis. Patient is on empiric antibiotics with Levaquin and Flagyl. Her symptoms have significantly improved. 2. History of hypothyroidism. RECOMMENDATIONS: 1. I reviewed the CT scan findings with the patient. At this time diet can be advanced as tolerated. 2. Continue with antibiotics. She can be discharged home tomorrow with outpatient followup as needed. Thank you for this consultation. MMODL / IJN: [id number] /
[2019-06-04] MEDS: MORPHINE SULFATE 2 MG/ML SYRINGE IVP PRN (21:22)
[2019-06-05] MEDS: LORazepam 0.5 MG TAB PO PRN (01:38)
[2019-06-05] MEDS: ONDANSETRON 4 MG/2 ML VIAL IVP PRN ×2 (02:42→08:09)
[2019-06-05] MEDS: MORPHINE SULFATE 2 MG/ML SYRINGE IVP PRN ×2 (03:51→21:17)
[2019-06-05] MEDS: LEVOTHYROXINE 50 MCG TAB PO SCH (05:28)
[2019-06-05] MEDS: metroNIDAZOLE-NS PMX 500 MG in SALINE 1 100ML.BAG IVPB SCH ×3 (08:09→23:24)
[2019-06-05] MEDS: SODIUM CHLORIDE 0.9% 1,000 ML IV SCH (08:09)
[2019-06-05] MEDS: PANTOPRAZOLE 40 MG/10 ML VIAL IVP SCH (08:09)
[2019-06-05] MEDS: METOPROLOL SUCCINATE (ER) 100 MG TAB.ER.24H PO SCH (08:18)
[2019-06-05] MEDS: POLYETHYLENE GLYCOL 3350 17 GM POWD.PACK PO SCH (08:18)
[2019-06-05] MEDS: METOPROLOL SUCCINATE (ER) 50 MG TAB.ER.24H PO SCH (08:19)
[2019-06-05 08:28] LABS: Basophils % (A) 0 %; Eosinophils # (A) 0.1 k/uL (0-0.7); Eosinophils % (A) 1 %; HCT 51.4 % (34.0-46.0); HGB 15.4 gm/dL (11.4-16.0); Hypochromasia Slight; Lymphocytes # (A) 1.3 k/uL (1.0-4.8); Lymphocytes % (A) 13 %; MCH 27.6 pg (25.0-35.0); MCHC 29.9 g/dL (31.0-37.0); MCV 92.4 fL (80.0-100.0); Mean Platelet Volume 7.9; Monocytes # (A) 0.4 k/uL (0-1.0); Monocytes % (A) 4 %; Neutrophils # (A) 8.6 k/uL (1.3-7.7); Neutrophils % (A) 82 %; Platelet Count 274 k/uL (150-450); RBC 5.56 m/uL (3.80-5.40); RDW 14.7 % (11.5-15.5); WBC 10.4 k/uL (3.8-10.6)
[2019-06-05 08:46] LABS: Potassium 5.3 mmol/L (3.5-5.1)
[2019-06-05] MEDS ORDERED: PROCHLORPERAZINE 5 MG TAB PO PRN (08:48)
[2019-06-05] MEDS ORDERED: LEVOFLOXACIN 250 MG TAB PO SCH (11:00)
[2019-06-05] MEDS: LEVOFLOXACIN 500MG-D5W PMX 500 MG in DEXTROSE/WATER 1 100ML.BAG IVPB SCH (12:07)
[2019-06-05] MEDS: FUROSEMIDE 20 MG TAB PO SCH (12:19)
[2019-06-05] MEDS: ONDANSETRON 4 MG/2 ML VIAL IVP SCH ×3 (12:19→23:24)
--- NOTE | 2019-06-05 13:09 | PN ---
PROGRESS NOTE DATE OF DICTATION: 06/05/2019 Patient is an 83-year-old pleasant white female who came into the hospital with lower abdominal pain and some diarrhea with questionable bleeding. Last night the patient was complaining of epigastric discomfort and had at least 3 or 4 episodes of coffee-ground emesis. Nurse notified me at 3 a.m. She was started on Protonix 40 mg daily. A repeat CBC was performed which showed a stable hemoglobin at 15.4 g/dL. This morning she states that she feels somewhat nauseated, but no further episodes of coffee-ground emesis. PHYSICAL EXAMINATION: On physical examination, appears comfortable, no apparent distress. Vital signs are stable. Blood pressure 135/90, pulse rate 105, temperature 97.1. HEENT: Examination is unremarkable. Conjunctivae pink. Sclerae anicteric. Oral cavity no lesions. NECK: No JVD or lymph node enlargement. CHEST: Clear to auscultation. HEART: Regular rate and rhythm. ABDOMEN: Soft. There was mild tenderness in the suprapubic area. EXTREMITIES: No pedal edema. SKIN: No rashes. NEUROLOGIC: Alert and oriented x3. No focal deficits. LABS: WBC 10.4, hemoglobin 15.4, platelets 274. BUN went up to 30, creatinine 1.22. Potassium is 5.3. IMPRESSION: 1. Epigastric pain, coffee-ground emesis x3 last night to early this morning. Hemoglobin stable at 14.5 g/dL. 2. History of atrial fibrillation on Eliquis, which is currently on hold for the last 3 days. 3. Lower abdominal pain and diarrhea, have resolved. RECOMMENDATIONS: 1. Continue to hold Eliquis. 2. Continue Protonix 40 mg daily. 3. Start her on a clear liquid diet. 4. We will proceed with an upper endoscopy tomorrow. I discussed with her risks, benefits and complications and she is agreeable to it. Thank you for this consultation. MMODL / IJN: [id number] /
--- NOTE | 2019-06-05 15:21 | P.PN ---
Subjective Progress Note Date: 06/05/19 This is a pleasant 83-year-old patient who was seen outpatient by Dr. Dorado. Past medical history significant for atrial fibrillation, coronary artery disease, heart failure, CVA, hyperlipidemia, hypertension, osteoarthritis, hypothyroidism, DVT. History of AICD implantation in 2010. Denies any history of diabetes. Has never smoked. She presented to the emergency center complaining of yellow diarrhea stool. Patient states that every time she stands up she has a bowel movement. Due to the orange color patient was concerned that blood was in the stool. Patient denies any abdominal pain. Denies any black tarry stool or bright red blood. He denies any chest pain or lightheadedness. Denies any palpitations or shortness of breath. Patient has been having the orange color stools for the last 2-3 days. At this time patient is resting comfortably in bed in no acute distress. Patient continues to have right lower quadrant pain. Patient does not recall her last colonoscopy. She is on a eliquis for atrial fibrillation. Hemoglobin was 13.7 last night 14.0 this morning. Patient has been afebrile. Heart rate 81, blood pressure 108/69 pulse ox 97% on room air, respirations 16 and unlabo red. Patient denies any nausea or vomiting. Patient continues to have diarrhea at this time. No bright red colors or black tarry stool. 06/03: Patient has been seen by Dr. Bergman with recommendations to start clear liquid diet and advance as tolerated. Obtain stool studies, monitor symptoms closely. No plans for endoscopy. Repeat hemoglobin is 14.1. Stool for stool studies including C. difficile colitis, lactoferrin and stool culture have been uncollected has patient is now constipated. Patient states she normally does not have a bowel movement unless she takes stool softeners or uses an enema. Patient is complaining of nausea this morning as well as bilateral lower quadrant abdominal pain. She is not tolerating regular diet. Patient will be placed on clear liquid diet. CAT scan of the abdomen and pelvis ordered and IV fluids started. Repeat BUN 24 and creatinine 1.16. 06/04: Patient continues to complain of vomiting today it was coffee ground. She is complaining of lower abdominal pain. She states she can't eat. Stool was sent yesterday and C. difficile toxin was negative. Patient denies any cough or shortness of breath. CAT scan of the abdomen and pelvis with contrast revealed nonspecific abdomen with no evidence to suggest colitis. Bilateral pleural effusions and basilar consolidation. Postsurgical change within the stomach. Patient has been rechecked by Dr. Bergman with recommendations for EGD which will be scheduled for tomorrow. Review of Systems Review Of Systems: Constitutional: No fever, no chills, no night sweats. No weight change. No weakness, fatigue or lethargy. No daytime sleepiness. EENT: No headache. No blurred vision or double vision, no loss of vision. No loss of Hearing, no ringing in the ears, no dizziness. No nasal drainage or congestion. No epistaxis. No sore throat. Lungs: No shortness of breath, cough, no sputum production. No wheezing. Cardiovascular: No chest pain, no lower extremity edema. No palpitations. No paroxysmal nocturnal dyspnea. No orthopnea. No lightheadedness or dizziness. No syncopal episodes. Abdominal: Reports abdominal pain bilateral lower quadrant. Report nausea reports coffee-ground vomiting. Denies diarrhea. Reports constipation. No bloody or tarry stools. Reports loss of appetite. Genitourinary: No dysuria, increased frequency, urgency. No urinary retention. Musculoskeletal: No myalgias. No muscle weakness, no gait dysfunction, no frequent falls. No back pain. No neck pain. Integumentary: No wounds, no lesions. No rash or pruritus. No unusual bruising. No change in hair or nails. Neurologic: No aphasia. No facial droop. No change in mentation. No head injury. No headache. No paralysis. No paresthesia. Psychiatric: No depression. No anxiety. No mood swings. Endocrine: No abnormal blood sugars. No weight change. No excessive sweating or thirst. Objective - Vital Signs Vital signs: Vital Signs Temp 97.1 F L 06/05/19 05:00 Pulse 105 H 06/05/19 05:00 Resp 20 06/05/19 05:00 BP 135/90 06/05/19 05:00 Pulse Ox 93 L 06/05/19 05:00 Intake & Output 06/04/19 06/05/19 06/05/19 18:59 06:59 18:59 Intake Total 100 300 Balance 100 300 Intake: Intake, IV Titration 100 Amount Sodium Chloride 0.9% 1, 100 000 ml @ 75 mls/hr IV . [id number] ERICA Rx#:[id number] Oral 300 Other: Voiding Method Toilet # Voids 2 2 # Bowel Movements 1 - Exam General Appearance: Alert, cooperative, appears stated age. Patient appears to be uncomfortable. She is actively nauseated at the time of evaluation. Neck HEENT: Supple, no lymphadenopathy, no thyroid enlargement, no carotid bruits. Lungs: Clear to auscultation without crackles or wheezes no rhonchi, no deformity. Chest Wall: Chest wall normal expansion with deep inspiration no tenderness and no deformity was found on exam, no costochondral pain or discomfort. Heart: Regular rate and rhythm, S1, S2 normal, no murmur, rub or gallop. Back: Symmetric, no curvature, ROM normal, no CVA tenderness. Abdomen: Soft, bilateral lower quadrant tenderness, no rebound or rigidity, no hepatosplenomegaly. Extremities: Extremities normal, atraumatic, no cyanosis or edema. Pulses: 2+ and symmetric. Skin: Skin color, texture, tugor normal, no rashes or lesions. Neurologic: Alert oriented x3 cranial nerves II through XII intact, no motor deficit, no abnormal balance or gait - Labs CBC & Chem 7: 06/05/19 08:05 06/05/19 08:05 Labs: Abnormal Lab Results - Last 24 Hours (Table) 06/04/19 06/04/19 Range/Units 08:57 08:57 Hct 47.2 H (34.0-46.0) % MCHC 29.9 L (31.0-37.0) g/dL Chloride 110 H (98-107) mmol/L BUN 24 H (7-17) mg/dL Creatinine 1.16 H (0.52-1.04) mg/dL Glucose 72 L (74-99) mg/dL Total Protein 5.0 L (6.3-8.2) g/dL Albumin 2.4 L (3.5-5.0) g/dL Assessment and Plan Plan: 1. Abdominal pain and possible GI bleed with positive Hemoccult possible colitis. Gastroenterology consult appreciated. Continue Flagyl and levofloxacin both changed to IV. CAT scan of the abdomen and pelvis as above. Continue IV fluids 75 mL per hour. EGD scheduled for tomorrow. 2. Atrial fibrillation, paroxysmal. Hold eliquis 3. Hypertension. Metoprolol 150 mg daily 4. Hyperlipidemia pravastatin 40 mg by mouth daily 5. Hypothyroidism levothyroxine 50 MCG's by mouth daily 6. History of CVA, stable 7. Chronic systolic heart failure Lasix 20 mg every 48 hours 8. Coronary artery disease, as noted above DVT prophylaxis: Ambulation at this time GI prophylaxis. Protonix Discharge plan: Home Impression and plan of care have been directed as dictated by the signing physician. Ginny Morillo nurse practitioner acting as scribe for signing physician. Abdominal pain and possible
[2019-06-05] MEDS: PRAVASTATIN SODIUM 40 MG TAB PO SCH (16:45)
[2019-06-06] MEDS: SODIUM CHLORIDE 0.9% 1,000 ML IV SCH (04:49)
[2019-06-06] MEDS: ONDANSETRON 4 MG/2 ML VIAL IVP SCH ×2 (06:06→10:52)
[2019-06-06] MEDS: LEVOTHYROXINE 50 MCG TAB PO SCH (06:06)
[2019-06-06] MEDS: metroNIDAZOLE-NS PMX 500 MG in SALINE 1 100ML.BAG IVPB SCH (07:41)
[2019-06-06] MEDS: PANTOPRAZOLE 40 MG/10 ML VIAL IVP SCH (07:42)
[2019-06-06] MEDS: METOPROLOL SUCCINATE (ER) 100 MG TAB.ER.24H PO SCH (08:36)
[2019-06-06] MEDS: METOPROLOL SUCCINATE (ER) 50 MG TAB.ER.24H PO SCH (08:36)
[2019-06-06] MEDS: POLYETHYLENE GLYCOL 3350 17 GM POWD.PACK PO SCH (08:37)
[2019-06-06] MEDS: MORPHINE SULFATE 2 MG/ML SYRINGE IVP PRN (08:41)
[2019-06-06] MEDS ORDERED: PROPOFOL 10 MG/ML 20 ML VIAL IV ONE (09:49)
[2019-06-06] MEDS ORDERED: PHENYLEPHRINE-0.9% NACL SYG 1 MG/10 ML SYRINGE ONE (09:49)
[2019-06-06] MEDS ORDERED: IV FLUID CONTINUATION 1,000 ML IV ONE ×2 (09:50)
--- NOTE | 2019-06-06 10:28 | P.PCN ---
Date of Procedure: 06/06/19 Procedure(s) Performed: BRIEF HISTORY: Patient is a 83-year-old, pleasant, female admitted hospital with abdominal pain nausea vomiting and diarrhea with some blood in the stool. While in the hospital she developed several episodes of coffee-ground emesis. Olympus has been on hold. She has prior history of gastric stapling surgery several years ago.. PROCEDURE PERFORMED: Esophagogastroduodenoscopy with biopsy. PREOPERATIVE DIAGNOSIS: Coffee-ground emesis. IV sedation per anesthesia. PROCEDURE: After informed consent was obtained, the patient was brought into the endoscopy unit. IV sedation was administered by Anesthesia under continuous monitoring. Initially the Olympus GIF-140 video endoscope was inserted into the mouth. Esophagus intubated without any difficulty. It was gradually advanced into the stomach and duodenum and carefully examined. The bulb and the second part of the duodenum appeared normal. The scope at this time was withdrawn to the stomach, adequately insufflated with air, and upon careful examination, mucosa of the antrum, had mild gastritis and biopsies were done from this area. There was evidence of previous gastric stapling surgery noted in the mid body of the stomach. The stomach proximal to the stapling which included part of the body, cardia and the fundus appeared normal. The scope was then withdrawn into the esophagus. The GE junction was located at 41 cm from the incisors. Then the length of esophagus had friability of the mucosa with erosions and exudate consistent with LA grade C reflux esophagitis. The proximal esophagus appeared normal and the patient tolerated the procedure well. IMPRESSION: 1. Evidence of previous gastric stapling surgery noted with some gastritis noted at the site of gastric stapling. 2. Mild gastritis 3. Severe erosive esophagitis involving the entire esophagus with mucosal erythema friability and some exudates consistent with LA grade C reflux esophagitis. RECOMMENDATIONS: The findings of this examination were discussed with the patient. She'll be continued on Protonix 40 mg twice daily. Diet will be advanced to full liquid diet and then advance as tolerated. Meantime will await the biopsy results..
[2019-06-06 10:41] VITALS: RESP 16
[2019-06-06] MEDS ORDERED: PROMETHAZINE INJ 25 MG/ML 1 ML VIAL IVPB ONE (11:20)
[2019-06-06] MEDS: LEVOFLOXACIN 500MG-D5W PMX 500 MG in DEXTROSE/WATER 1 100ML.BAG IVPB SCH (12:23)
--- NOTE | 2019-06-06 13:53 | P.DS ---
Providers Date of admission: 06/02/19 11:58 Expected date of discharge: 06/06/19 Attending physician: Juana Mayorga Consults: 06/02/19 11:58 Consult Physician Urgent Consulting Provider: Socorro Bergman Consult Reason/Comments: GI bleed Do you want consulting provider notified?: Yes Primary care physician: [facility] Course: This is a pleasant 83-year-old patient who was seen outpatient by Dr. Liu. Past medical history significant for atrial fibrillation, coronary artery disease, heart failure, CVA, hyperlipidemia, hypertension, osteoarthritis, hypothyroidism, DVT. History of AICD implantation in 2010. Denies any history of diabetes. Has never smoked. She presented to the emergency center complaining of yellow diarrhea stool. Patient states that every time she stands up she has a bowel movement. Due to the orange color patient was concerned that blood was in the stool. Patient denies any abdominal pain. Denies any black tarry stool or bright red blood. He denies any chest pain or lightheadedness. Denies any palpitations or shortness of breath. Patient has been having the orange color stools for the last 2-3 days. At this time patient is resting comfortably in bed in no acute distress. Patient continues to have right lower quadrant pain. Patient does not recall her last colonoscopy. She is on a eliquis for atrial fibrillation. Hemoglobin was 13.7 last night 14.0 this morning. Patient has been afebrile. Heart rate 81, blood pressure 108/69 pulse ox 97% on room air, respirations 16 and unlabored. Patient denies any nausea or vomiting. Patient continues to have diarrhea at this time. No bright red colors or black tarry stool. 06/03: Patient has been seen by Dr. Bergman with recommendations to start clear liquid diet and advance as tolerated. Obtain stool studies, monitor symptoms closely. No plans for endoscopy. Repeat hemoglobin is 14.1. Stool for stool studies including C. difficile colitis, lactoferrin and stool culture have been uncollected has patient is now constipated. Patient states she normally does not have a bowel movement unless she takes stool softeners or uses an enema. Patient is complaining of nausea this morning as well as bilateral lower quadrant abdominal pain. She is not tolerating regular diet. Patient will be placed on clear liquid diet. CAT scan of the abdomen and pelvis ordered and IV fluids started. Repeat BUN 24 and creatinine 1.16. 06/04: Patient continues to complain of vomiting today it was coffee ground. She is complaining of lower abdominal pain. She states she can't eat. Stool was sent yesterday and C. difficile toxin was negative. Patient denies any cough or shortness of breath. CAT scan of the abdomen and pelvis with contrast revealed nonspecific abdomen with no evidence to suggest colitis. Bilateral pleural effusions and basilar consolidation. Postsurgical change within the stomach. Patient has been rechecked by Dr. Bergman with recommendations for EGD which will be scheduled for tomorrow. 06/05: Patient is afebrile, heart rate 91, blood pressure 129/84, pulse ox 92% on room air. WBC 10.4, hemoglobin 15.4, platelet count 274. Sodium 134, potassium 5.3, chloride 106, CO2 18, BUN 13 creatinine 1.22. Patient underwent EGD this morning with Dr. Pelaez that showed evidence of gastric stapling surgery noted with some gastritis at the site of the gastric stapling. Mild gastritis. Severe erosive esophagitis involving the entire esophagus with mucosal erythema friability and some exudates consistent with LA grade C reflux esophagitis. Recommendations for Protonix twice daily. Follow up in the office for pathology reports. Patient was able to tolerate full liquid diet. Patient will be discharged home today in stable condition. Discharge diagnoses: 1. GI bleed acute GI bleed and abdominal pain secondary to severe erosive esophagitis, gastritis and possible colitis. 2. Atrial fibrillation, paroxysmal. 3. Hypertension. 4. Hyperlipidemia 5. Hypothyroidism 6. History of CVA, stable 7. Chronic systolic heart failure 8. Coronary artery disease 9. History of idiopathic cardiomyopathy status post AICD Discharge plan: home Impression and plan of care have been directed as dictated by the signing physician. Ginny Morillo nurse practitioner acting as scribe for signing physician. Patient Condition at Discharge: Good Plan - Discharge Summary New Discharge Prescriptions: New metroNIDAZOLE [Flagyl] 500 mg PO Q8HR #12 tab Levofloxacin [Levaquin] 500 mg PO DAILY 4 Days #4 tab Continue Metoprolol Succinate (ER) [Toprol XL] 50 mg PO QAM Levothyroxine Sodium [Synthroid] 50 mcg PO DAILY Metoprolol Succinate (ER) [Toprol XL] 100 mg PO DAILY LORazepam [Ativan] 0.5 mg PO DAILY PRN PRN Reason: Anxiety Furosemide [Lasix] 20 mg PO Q48H Apixaban [Eliquis] 2.5 mg PO BID Pravastatin Sodium [Pravachol] 40 mg PO DAILY@1500 Discharge Medication List Metoprolol Succinate (ER) [Toprol XL] 50 mg PO QAM 11/04/15 [History] Apixaban [Eliquis] 2.5 mg PO BID 06/02/19 [History] Furosemide [Lasix] 20 mg PO Q48H 06/02/19 [History] LORazepam [Ativan] 0.5 mg PO DAILY PRN 06/02/19 [History] Levothyroxine Sodium [Synthroid] 50 mcg PO DAILY 06/02/19 [History] Metoprolol Succinate (ER) [Toprol XL] 100 mg PO DAILY 06/02/19 [History] Pravastatin Sodium [Pravachol] 40 mg PO DAILY@1500 06/02/19 [History] Levofloxacin [Levaquin] 500 mg PO DAILY 4 Days #4 tab 06/06/19 [Rx] metroNIDAZOLE [Flagyl] 500 mg PO Q8HR #12 tab 06/06/19 [Rx] Follow up Appointment(s)/Referral(s): Socorro Bergman MD [STAFF PHYSICIAN] - 2 Weeks (F/U biopsy reports 2-4 weeks) Tray Liu DO [Primary Care Provider] - 1 Week Patient Instructions/Handouts: Upper Endoscopy (DC) Activity/Diet/Wound Care/Special Instructions: EGD 06/06/2019 Discharge Disposition: HOME SELF-CARE
[2019-06-06 14:23] VITALS: BP 141/59; PULSE 100; TEMP 98.2
[2019-06-07] MEDS ORDERED: LEVOFLOXACIN 250MG-D5W PMX 250 MG in DEXTROSE/WATER 1 50ML.BAG IVPB SCH (12:00)
== END 2019-06-06 15:49 | disposition home or self-care (01) | DRG 381 ==
LOC: EC 09:16 → 6NMEDSUR 11:58 → OBSVTOIN 06-04 10:23
PROVIDERS: ADMIT Family Medicine; ATTEND Family Medicine
PROC: 0DB58ZX Excision of Esophagus, Via Natural or Artificial Opening Endoscopic, Diagnostic (ICD-10-PCS; principal; 2019-06-06 09:30)
PROC: 0DB78ZX Excision of Stomach, Pylorus, Via Natural or Artificial Opening Endoscopic, Diagnostic (ICD-10-PCS; principal; 2019-06-06 09:30)
DX: K22.11 Ulcer of esophagus with bleeding (principal); I42.9 Cardiomyopathy, unspecified; I50.22 Chronic systolic (congestive) heart failure; K21.0 Gastro-esophageal reflux disease with esophagitis; E03.9 Hypothyroidism, unspecified; E78.00 Pure hypercholesterolemia, unspecified; E78.5 Hyperlipidemia, unspecified; I48.0 Paroxysmal atrial fibrillation; I11.0 Hypertensive heart disease with heart failure; I25.10 Atherosclerotic heart disease of native coronary artery without angina pectoris; K29.70 Gastritis, unspecified, without bleeding; K59.00 Constipation, unspecified; Z79.01 Long term (current) use of anticoagulants; Z79.890 Hormone replacement therapy; Z79.899 Other long term (current) drug therapy; Z80.3 Family history of malignant neoplasm of breast; Z86.73 Personal history of transient ischemic attack (TIA), and cerebral infarction without residual deficits; Z90.710 Acquired absence of both cervix and uterus; Z95.810 Presence of automatic (implantable) cardiac defibrillator; Z87.440 Personal history of urinary (tract) infections; Z88.5 Allergy status to narcotic agent; M19.90 Unspecified osteoarthritis, unspecified site; Z98.84 Bariatric surgery status
CPT/HCPCS: 36415; 43239; 74177; 80048; 80053; 82272; 83605; 83630; 83690; 85025; 85610; 85652; 85730; 86140; 86850; 86900; 86901; 87045; 87046; 87324; 88305; 96374; 99285

== ENCOUNTER 2019-06-13 09:40 | Inpatient (IN) | payer MEDICARE, BC ==
[2019-06-13] MEDS ORDERED: SODIUM CHLORIDE 0.9% 1,000 ML IV STA (09:53)
[2019-06-13] MEDS ORDERED: PANTOPRAZOLE 40 MG/10 ML VIAL IVP STA (09:53)
[2019-06-13] MEDS ORDERED: fentaNYL (PF) 50 MCG/ML 2 ML AMP IVP STA (09:54)
[2019-06-13 10:09] LABS: Basophils % (A) 0 %; Eosinophils # (A) 0.1 k/uL (0-0.7); Eosinophils % (A) 1 %; HCT 53.4 % (34.0-46.0); Hypochromasia Slight; Lymphocytes # (A) 1.1 k/uL (1.0-4.8); Lymphocytes % (A) 10 %; MCH 28.9 pg (25.0-35.0); MCHC 31.9 g/dL (31.0-37.0); MCV 90.7 fL (80.0-100.0); Mean Platelet Volume 8.7; Monocytes # (A) 0.5 k/uL (0-1.0); Monocytes % (A) 5 %; Neutrophils # (A) 8.8 k/uL (1.3-7.7); Neutrophils % (A) 82 %; Platelet Count 143 k/uL (150-450); RDW 15.3 % (11.5-15.5); WBC 10.6 k/uL (3.8-10.6)
[2019-06-13] MEDS ORDERED: SODIUM CHLORIDE 0.9% 1,000 ML IV ONE (10:12)
[2019-06-13 10:14] LABS: Albumin 2.4 g/dL (3.5-5.0); Calcium 7.5 mg/dL (8.4-10.2); Magnesium 1.6 mg/dL (1.6-2.3); Total Bilirubin 1.1 mg/dL (0.2-1.3); Total Protein 5.1 g/dL (6.3-8.2)
--- NOTE | 2019-06-13 10:16 | ED ---
GI Bleed HPI - General Chief complaint: GI Bleed Stated complaint: syncope, abd pain Time Seen by Provider: 06/13/19 09:45 Source: patient, EMS, RN notes reviewed Mode of arrival: EMS Limitations: no limitations - History of Present Illness Initial comments: This is an 83-year-old female presents emergency Department via EMS chief complaint syncopal episode. Patient recent hospitalization for GI bleed. She states she continues to have black tarry stools. Patient states that she does take Eliquis. Patient was going for a follow-up appointment today when she passed out going to the vehicle. She was lowered to the ground by family members. Patient had no head injury. Patient states that she mostly on dizzy states that she woke up to EMS. Patient denies current chest pain shortness breath she does admit that she is generalized weak feeling she is found to have low blood pressure, tachycardia. Patient does have a history of A. fib. - Related Data Home Medications Medication Instructions Recorded Confirmed Metoprolol Succinate (ER) [Toprol 50 mg PO QAM 11/04/15 06/13/19 XL] Apixaban [Eliquis] 2.5 mg PO BID 06/02/19 06/13/19 Furosemide [Lasix] 20 mg PO Q48H 06/02/19 06/13/19 LORazepam [Ativan] 0.5 mg PO DAILY PRN 06/02/19 06/13/19 Levothyroxine Sodium [Synthroid] 50 mcg PO DAILY 06/02/19 06/13/19 Metoprolol Succinate (ER) [Toprol 100 mg PO DAILY 06/02/19 06/13/19 XL] Pravastatin Sodium [Pravachol] 40 mg PO DAILY@1500 06/02/19 06/13/19 Nitrofurantoin Monohyd/M-Cryst 100 mg PO Q12HR 06/13/19 06/13/19 [Macrobid] Allergies Allergy/AdvReac Type Severity Reaction Status Date / Time codeine AdvReac Nausea & Verified 06/13/19 10:38 Vomiting monosodium glutamate [MSG] AdvReac headache Verified 06/13/19 10:38 Review of Systems ROS Statement: Those systems with pertinent positive or pertinent negative responses have been documented in the HPI. ROS Other: All systems not noted in ROS Statement are negative. Past Medical History Past Medical History: Atrial Fibrillation, Coronary Artery Disease (CAD), Heart Failure, CVA/TIA, Deep Vein Thrombosis (DVT), Hyperlipidemia, Hypertension, Osteoarthritis (OA), Thyroid Disorder Additional Past Medical History / Comment(s): states "it feels like when I swallow something is causing what I am swallowing to go into my lungs,"HX UTI History of Any Multi-Drug Resistant Organisms: None Reported Past Surgical History: AICD, Cardiac Ablation, Section, Hysterectomy, Orthopedic Surgery, Pacemaker Additional Past Surgical History / Comment(s): BILATERAL KNEE,stomach stapled Past Anesthesia/Blood Transfusion Reactions: No Reported Reaction Additional Past Anesthesia/Blood Transfusion Reaction / Comment(s): no hx blood transfusion Type of Cardiac Device: Biventricular Pacemaker, Permanent Pacemaker, AICD Device Placement Date:: [address] [facility] Past Psychological History: No Psychological Hx Reported Smoking Status: Never smoker Past Alcohol Use History: None Reported Past Drug Use History: None Reported - Past Family History Father Family Medical History: Cancer Additional Family Medical History / Comment(s): bowel Sister(s) Family Medical History: Cancer Additional Family Medical History / Comment(s): breast General Exam Limitations: no limitations General appearance: alert, in no apparent distress Head exam: Present: atraumatic, normocephalic, normal inspection Eye exam: Present: normal appearance, PERRL, EOMI. Absent: scleral icterus, conjunctival injection, periorbital swelling ENT exam: Present: normal exam, normal oropharynx, mucous membranes moist, TM's normal bilaterally Neck exam: Present: normal inspection, full ROM. Absent: tenderness, meningismus, lymphadenopathy Respiratory exam: Present: normal lung sounds bilaterally. Absent: respiratory distress, wheezes, rales, rhonchi, stridor Cardiovascular Exam: Present: tachycardia, irregular rhythm, normal heart sounds. Absent: regular rate, normal rhythm, systolic murmur, diastolic murmur, rubs, gallop, clicks GI/Abdominal exam: Present: soft, tenderness (Moderate diffuse), normal bowel sounds. Absent: distended, guarding, rebound, rigid Back exam: Absent: CVA tenderness (R), CVA tenderness (L) Neurological exam: Present: alert, oriented X3 Skin exam: Present: warm, dry, intact, normal color. Absent: rash Course Vital Signs 06/13/19 06/13/19 06/13/19 09:46 09:50 09:59 Temperature 98.4 F Pulse Rate 104 H 108 H Respiratory 16 24 Rate Blood Pressure 87/74 87/74 87/74 O2 Sat by Pulse 94 L Oximetry 06/13/19 06/13/19 06/13/19 10:00 10:10 10:17 Temperature Pulse Rate 99 100 105 H Respiratory 20 20 20 Rate Blood Pressure 87/74 95/59 95/59 O2 Sat by Pulse 96 Oximetry 06/13/19 06/13/19 06/13/19 10:20 10:30 10:40 Temperature Pulse Rate 106 H 91 92 Respiratory 20 21 22 Rate Blood Pressure 109/66 109/66 100/69 O2 Sat by Pulse 96 96 96 Oximetry 06/13/19 06/13/19 06/13/19 10:50 11:00 11:30 Temperature Pulse Rate 109 H 108 H 104 H Respiratory 21 21 22 Rate Blood Pressure 106/63 106/63 100/82 O2 Sat by Pulse 96 Oximetry - Reevaluation(s) Reevaluation #1: 06/13/19 10:16 I did review past medical history and prior admission patient had CT with no specific findings. Medical Decision Making - Medical Decision Making 83-year-old female presents emergency Department for syncopal episode, hypotension. Patient did respond to mild fluid hydration. Patient still in A. fib with RVR. Patient will be admitted sent for further evaluation. - Lab Data Result diagrams: 06/13/19 09:50 06/13/19 09:50 Lab Results 06/13/19 06/13/19 06/13/19 Range/Units 09:50 09:50 09:50 WBC 10.6 (3.8-10.6) k/uL RBC 5.90 H (3.80-5.40) m/uL Hgb 17.0 H (11.4-16.0) gm/dL Hct 53.4 H (34.0-46.0) % MCV 90.7 (80.0-100.0) fL MCH 28.9 (25.0-35.0) pg MCHC 31.9 (31.0-37.0) g/dL RDW 15.3 (11.5-15.5) % Plt Count 143 L (150-450) k/uL Neutrophils % 82 % Lymphocytes % 10 % Monocytes % 5 % Eosinophils % 1 % Basophils % 0 % Neutrophils # 8.8 H (1.3-7.7) k/uL Lymphocytes # 1.1 (1.0-4.8) k/uL Monocytes # 0.5 (0-1.0) k/uL Eosinophils # 0.1 (0-0.7) k/uL Basophils # 0.0 (0-0.2) k/uL Hypochromasia Slight PT 19.0 H (9.0-12.0) sec INR 1.9 H (<1.2) APTT 27.4 (22.0-30.0) sec Sodium 134 L (137-145) mmol/L Potassium 4.1 (3.5-5.1) mmol/L Chloride 99 (98-107) mmol/L Carbon Dioxide 26 (22-30) mmol/L Anion Gap 9 mmol/L BUN 18 H (7-17) mg/dL Creatinine 0.96 (0.52-1.04) mg/dL Est GFR (CKD-EPI)AfAm 63 (>60 ml/min/1.73 sqM) Est GFR (CKD-EPI)NonAf 55 (>60 ml/min/1.73 sqM) Glucose 90 (74-99) mg/dL Plasma Lactic Acid Juan (0.7-2.0) mmol/L Calcium 7.5 L (8.4-10.2) mg/dL Magnesium 1.6 (1.6-2.3) mg/dL Total Bilirubin 1.1 (0.2-1.3) mg/dL AST 30 (14-36) U/L ALT 12 (4-34) U/L Alkaline Phosphatase 43 (38-126) U/L Troponin I (0.000-0.034) ng/mL Total Protein 5.1 L (6.3-8.2) g/dL Albumin 2.4 L (3.5-5.0) g/dL Lipase 200 (23-300) U/L Urine Color Urine Appearance (Clear) Urine pH (5.0-8.0) Ur Specific [place] (1.001-1.035) Urine Protein (Negative) Urine Glucose (UA) (Negative) Urine Ketones (Negative) Urine Blood (Negative) Urine Nitrite (Negative) Urine Bilirubin (Negative) Urine Urobilinogen (<2.0) mg/dL Ur Leukocyte Esterase (Negative) Urine RBC (0-5) /hpf Urine WBC (0-5) /hpf Ur Squamous Epith Cells (0-4) /hpf Urine Bacteria (None) /hpf Hyaline Casts (0-2) /lpf Urine Mucus (None) /hpf Stool Occult Blood (Negative) Blood Type Blood Type Recheck Bld Type Recheck Status Antibody Screen Spec Expiration Date 06/13/19 06/13/19 06/13/19 Range/Units 09:50 09:50 09:50 WBC (3.8-10.6) k/uL RBC (3.80-5.40) m/uL Hgb (11.4-16.0) gm/dL Hct (34.0-46.0) % MCV (80.0-100.0) fL MCH (25.0-35.0) pg MCHC (31.0-37.0) g/dL RDW (11.5-15.5) % Plt Count (150-450) k/uL Neutrophils % % Lymphocytes % % Monocytes % % Eosinophils % % Basophils % % Neutrophils # (1.3-7.7) k/uL Lymphocytes # (1.0-4.8) k/uL Monocytes # (0-1.0) k/uL Eosinophils # (0-0.7) k/uL Basophils # (0-0.2) k/uL Hypochromasia PT (9.0-12.0) sec INR (<1.2) APTT (22.0-30.0) sec Sodium (137-145) mmol/L Potassium (3.5-5.1) mmol/L Chloride (98-107) mmol/L Carbon Dioxide (22-30) mmol/L Anion Gap mmol/L BUN (7-17) mg/dL Creatinine (0.52-1.04) mg/dL Est GFR (CKD-EPI)AfAm (>60 ml/min/1.73 sqM) Est GFR (CKD-EPI)NonAf (>60 ml/min/1.73 sqM) Glucose (74-99) mg/dL Plasma Lactic Acid Jaun 2.9 H* (0.7-2.0) mmol/L Calcium (8.4-10.2) mg/dL Magnesium (1.6-2.3) mg/dL Total Bilirubin (0.2-1.3) mg/dL AST (14-36) U/L ALT (4-34) U/L Alkaline Phosphatase (38-126) U/L Troponin I <0.012 (0.000-0.034) ng/mL Total Protein (6.3-8.2) g/dL Albumin (3.5-5.0) g/dL Lipase (23-300) U/L Urine Color Urine Appearance (Clear) Urine pH (5.0-8.0) Ur Specific [place] (1.001-1.035) Urine Protein (Negative) Urine Glucose (UA) (Negative) Urine Ketones (Negative) Urine Blood (Negative) Urine Nitrite (Negative) Urine Bilirubin (Negative) Urine Urobilinogen (<2.0) mg/dL Ur Leukocyte Esterase (Negative) Urine RBC (0-5) /hpf Urine WBC (0-5) /hpf Ur Squamous Epith Cells (0-4) /hpf Urine Bacteria (None) /hpf Hyaline Casts (0-2) /lpf Urine Mucus (None) /hpf Stool Occult Blood (Negative) Blood Type B Positive Blood Type Recheck B Pos Bld Type Recheck Status No Antibody Screen NEGATIVE Spec Expiration Date 06/16/2019 - 234906/13/19 06/13/19 Range/Units 09:50 10:55 WBC (3.8-10.6) k/uL RBC (3.80-5.40) m/uL Hgb (11.4-16.0) gm/dL Hct (34.0-46.0) % MCV (80.0-100.0) fL MCH (25.0-35.0) pg MCHC (31.0-37.0) g/dL RDW (11.5-15.5) % Plt Count (150-450) k/uL Neutrophils % % Lymphocytes % % Monocytes % % Eosinophils % % Basophils % % Neutrophils # (1.3-7.7) k/uL Lymphocytes # (1.0-4.8) k/uL Monocytes # (0-1.0) k/uL Eosinophils # (0-0.7) k/uL Basophils # (0-0.2) k/uL Hypochromasia PT (9.0-12.0) sec INR (<1.2) APTT (22.0-30.0) sec Sodium (137-145) mmol/L Potassium (3.5-5.1) mmol/L Chloride (98-107) mmol/L Carbon Dioxide (22-30) mmol/L Anion Gap mmol/L BUN (7-17) mg/dL Creatinine (0.52-1.04) mg/dL Est GFR (CKD-EPI)AfAm (>60 ml/min/1.73 sqM) Est GFR (CKD-EPI)NonAf (>60 ml/min/1.73 sqM) Glucose (74-99) mg/dL Plasma Lactic Acid Juan (0.7-2.0) mmol/L Calcium (8.4-10.2) mg/dL Magnesium (1.6-2.3) mg/dL Total Bilirubin (0.2-1.3) mg/dL AST (14-36) U/L ALT (4-34) U/L Alkaline Phosphatase (38-126) U/L Troponin I (0.000-0.034) ng/mL Total Protein (6.3-8.2) g/dL Albumin (3.5-5.0) g/dL Lipase (23-300) U/L Urine Color Dark Brown Urine Appearance Cloudy H (Clear) Urine pH 5.5 (5.0-8.0) Ur Specific [place] 1.024 (1.001-1.035) Urine Protein Trace H (Negative) Urine Glucose (UA) Negative (Negative) Urine Ketones 1+ H (Negative) Urine Blood Small H (Negative) Urine Nitrite Negative (Negative) Urine Bilirubin Negative (Negative) Urine Urobilinogen <2.0 (<2.0) mg/dL Ur Leukocyte Esterase Moderate H (Negative) Urine RBC 6 H (0-5) /hpf Urine WBC 3 (0-5) /hpf Ur Squamous Epith Cells 3 (0-4) /hpf Urine Bacteria Rare H (None) /hpf Hyaline Casts 55 H (0-2) /lpf Urine Mucus Many H (None) /hpf Stool Occult Blood Negative (Negative) Blood Type Blood Type Recheck Bld Type Recheck Status Antibody Screen Spec Expiration Date - EKG Data -: EKG Interpreted by Me EKG Comments: EKG performed at 9:46 A. fib with RVR, rate of 113 QRS 68 QT/QTC 342/469 Disposition Clinical Impression: Syncopal episodes, Abdominal pain, Atrial fibrillation with RVR, Hypotension Disposition: ADMITTED IP TO THIS HOSP Condition: Serious Referrals: Tray Liu DO [Primary Care Provider] - 1-2 days
[2019-06-13 10:17] LABS: INR 1.9 (<1.2); Partial Thromboplastin Time 27.4 sec (22.0-30.0)
[2019-06-13 10:39] LABS: Potassium 4.1 mmol/L (3.5-5.1)
[2019-06-13 11:18] LABS: Appearance,Urine Cloudy (Clear); Bacteria,Urine Rare /hpf; Bilirubin,Urine Negative (Negative); Blood,Urine Small (Negative); Color,Urine Dark Brown; Glucose,Urine (UA) Negative (Negative); Hyaline Casts,Urine 55 /lpf (0-2); Ketones,Urine 1+ (Negative); Leukocyte Esterase,Urine Moderate (Negative); Mucus,Urine Many /hpf; Nitrite,Urine Negative (Negative); PH, Urine 5.5 (5.0-8.0); Protein,Urine Trace (Negative); RBC,Urine 6 /hpf (0-5); Specific Gravity,Urine 1.024 (1.001-1.035); Squamous Epithelial Cell,Urine 3 /hpf (0-4); Urobilinogen,Urine <2.0 mg/dL (<2.0); WBC,Urine 3 /hpf (0-5)
[2019-06-13] MEDS ORDERED: LORazepam 0.5 MG TAB PO PRN (11:25)
--- NOTE | 2019-06-13 12:37 | CT ---
EXAMINATION TYPE: CT abdomen pelvis w con DATE OF EXAM: 06/13/2019 HISTORY: Upper abd pain. Recent EGD., History of hysterectomy and partial gastrectomy. CT DLP: 1099.6mGycm Automated Exposure Control for Dose Reduction was Utilized. CONTRAST: CT scan of the abdomen and pelvis is performed with IV Contrast, patient injected with 80 mL of Isovu e 300. COMPARISON: 06/04/2019 CT abdomen and pelvis for nausea and diarrhea FINDINGS: LUNG BASES: Partially visualized bilateral pleural effusions and bibasilar associated compressive ate lectasis as seen on the prior of 06/04/2019. LIVER/GB: Low-attenuation of the hepatic parenchyma throughout may be on the basis of hepatic steatos is, other hepatocellular disease or congestive hepatopathy. This limits evaluation of hepatic masses. Multiple hypoattenuated hepatic lesions are seen with the largest simple fluid attenuated representi ng a benign cyst measuring 3.2 cm. PANCREAS: No significant abnormality is seen. SPLEEN: Lobulated contour of the spleen is unchanged from the prior. ADRENALS: No significant abnormality is seen. KIDNEYS: 3 mm probable nonobstructing left lower pole renal calculus on image 30. No hydronephrosis o f either kidney. Urinary bladder is decompressed and suboptimally evaluated. BOWEL: The colon is fluid-filled with paucity of haustral and air-fluid levels. No dilated large or s mall bowel. Partial gastrectomy is again seen. Mild levoscoliosis of the lumbar spine. LYMPH NODES: No greater than 1cm abdominal or pelvic lymph nodes are appreciated. OSSEOUS STRUCTURES: Scattered sclerotic foci are seen, likely benign bone islands measuring up to 6 m m in the left ischium. There is diffuse osseous demineralization. Minimal retrolisthesis of L1 on L2. Moderate multilevel degenerative change of the spine. OTHER: Anasarca is again seen, progressed from the prior with new small volume ascites and mesenteric edema. Severe atherosclerosis of the abdominal aorta and its branches. IMPRESSION: 1. Lack of haustration, fluid-filled colon, and air-fluid levels suggest acute uncomplicated colitis. There is limitation for evaluation of pericolonic fat stranding given the new diffuse mesenteric bhavani ma and new small volume ascites. Anasarca has also progressed from the prior. 2. Partially visualized bilateral pleural effusions, likely at least moderate, and associated atelect asis.
[2019-06-13] MEDS: SODIUM CHLORIDE 0.9% 1,000 ML IV SCH ×2 (13:37→23:37)
[2019-06-13] MEDS: ONDANSETRON 4 MG/2 ML VIAL IVP PRN (13:37)
--- NOTE | 2019-06-13 14:41 | P.HPIM ---
History of Present Illness H&P Date: 06/13/19 Chief Complaint: Abdominal pain, syncope This is a pleasant 83-year-old patient of Dr. Dorado. Past medical history significant for paroxysmal atrial fibrillation, coronary artery disease, chronic systolic heart failure, CVA, hyperlipidemia, hypertension, osteoarthritis, hypot hyroidism, DVT. History of AICD implantation in 2010. Denies any history of diabetes. Has never smoked. Patient was recently hospitalized and discharged on June 05 for acute GI bleed abdominal pain secondary to severe erosive esophagitis, gastritis and possible colitis. Pathology supports the identified diagnoses, no malignancy noted. states that patient is having same symptoms as before with abdominal pain. Patient left here on Tuesday and was doing okay on starting on Tuesday she was developing abdominal pain. She dropped a urine specimen and Dr. Liu's office and was started on Macrodantin, currently has taken 4 tablets total. Patient's states that she was in the driveway getting ready to go to a follow-up appointment with Dr. Pelaez and she passed out in the driveway. There is concern patient is still having black tarry stools and is also on eliquis. She complains of generalized weakness, no chest pain or shortness of breath. Patient came into [facility] emergency center for evaluation. She was afebrile, blood pressure 87/74, heart rate 104, pulse ox 94%. Hemoglobin 17, platelet count 143, WBC 10.6. Sodium 134, potassium 4.1, chloride 99, CO2 26, BUN 18, creatinine 0.96, calcium 7.5, albumin 2.4, lipase 200, liver function tests within normal limits. Lactic acid 2.9, troponin negative. Stool for occult blood negative. Urinalysis dark brown, cloudy, blood small, leukoesterase moderate, bacteria rare. EKG atrial fibrillation. CAT scan of the abdomen and pelvis revealed acute uncomplicated colitis. There is limitation for evaluation of pericolonic fat stranding given the new diffuse mesenteric edema and new small volume ascites. Anasarca also progressed from prior. Patient is status post 2 L of IV fluids in current blood pressure 121/78. Patient admitted to the cardiac stepdown unit but will be transferred to [facility] with telemetry. Orthostatics ordered and patient started on Rocephin and Flagyl. Review of Systems Constitutional: Reports fatigue, Reports weakness, Denies chills, Denies fever Eyes: denies blurred vision, denies pain Ears, nose, mouth and throat: Reports vertigo, Denies dysphagia, Denies nasal congestion, Denies nasal discharge Cardiovascular: Reports lightheadedness, Reports syncope, Denies chest pain, Denies edema, Denies shortness of breath Respiratory: Denies cough, Denies cough with sputum, Denies dyspnea, Denies excessive sputum, Denies hemoptysis, Denies home oxygen, Denies respiratory infections, Denies wheezing Gastrointestinal: Reports melena, Denies abdominal pain, Denies diarrhea, Denies nausea, Denies vomiting Genitourinary: Denies dysuria, Denies hematuria Menstruation: Reports postmenopausal Musculoskeletal: Reports muscle weakness, Denies frequent falls, Denies gait dysfunction, Denies myalgias Integumentary: Denies pruritus, Denies rash, Denies wounds Neurological: Denies change in mentation, Denies change in speech, Denies numbness, Denies weakness Psychiatric: Denies anxiety, Denies depression Endocrine: Denies fatigue, Denies weight change Past Medical History Past Medical History: Atrial Fibrillation, Coronary Artery Disease (CAD), Heart Failure, CVA/TIA, Deep Vein Thrombosis (DVT), Hyperlipidemia, Hypertension, Osteoarthritis (OA), Thyroid Disorder Additional Past Medical History / Comment(s): states "it feels like when I swallow something is causing what I am swallowing to go into my lungs,"HX UTI History of Any Multi-Drug Resistant Organisms: None Reported Past Surgical History: AICD, Cardiac Ablation, Section, Hysterectomy, Orthopedic Surgery, Pacemaker Additional Past Surgical History / Comment(s): BILATERAL KNEE,stomach stapled Past Anesthesia/Blood Transfusion Reactions: No Reported Reaction Additional Past Anesthesia/Blood Transfusion Reaction / Comment(s): no hx blood transfusion Type of Cardiac Device: Biventricular Pacemaker, Permanent Pacemaker, AICD Device Placement Date:: 2010 [facility] Past Psychological History: No Psychological Hx Reported Smoking Status: Never smoker Past Alcohol Use History: None Reported Past Drug Use History: None Reported - Past Family History Father Family Medical History: Cancer Additional Family Medical History / Comment(s): bowel Sister(s) Family Medical History: Cancer Additional Family Medical History / Comment(s): breast Medications and Allergies Home Medications Medication Instructions Recorded Confirmed Type Metoprolol Succinate (ER) [Toprol 50 mg PO QAM 11/04/15 06/13/19 History XL] Apixaban [Eliquis] 2.5 mg PO BID 06/02/19 06/13/19 History Furosemide [Lasix] 20 mg PO Q48H 06/02/19 06/13/19 History LORazepam [Ativan] 0.5 mg PO DAILY PRN 06/02/19 06/13/19 History Levothyroxine Sodium [Synthroid] 50 mcg PO DAILY 06/02/19 06/13/19 History Metoprolol Succinate (ER) [Toprol 100 mg PO DAILY 06/02/19 06/13/19 History XL] Pravastatin Sodium [Pravachol] 40 mg PO DAILY@1500 06/02/19 06/13/19 History Nitrofurantoin Monohyd/M-Cryst 100 mg PO Q12HR 06/13/19 06/13/19 History [Macrobid] Allergies Allergy/AdvReac Type Severity Reaction Status Date / Time codeine AdvReac Nausea & Verified 06/13/19 10:38 Vomiting monosodium glutamate [MSG] AdvReac headache Verified 06/13/19 10:38 Physical Exam Vitals: Vital Signs Temp Pulse Resp BP Pulse Ox 06/13/19 11:00 108 H 21 106/63 06/13/19 10:50 109 H 21 106/63 06/13/19 10:40 92 22 100/69 96 06/13/19 10:30 91 21 109/66 96 06/13/19 10:20 106 H 20 109/66 96 06/13/19 10:17 105 H 20 95/59 96 06/13/19 10:10 100 20 95/59 06/13/19 10:00 99 20 87/74 06/13/19 09:59 98.4 F 108 H 24 87/74 94 L 06/13/19 09:50 104 H 16 87/74 06/13/19 09:46 87/74 Intake and Output 06/12/19 06/13/19 06/13/19 22:59 06:59 14:59 Other: Weight 64.41 kg Gen: This is an 82-year-old female. Patient is resting on the ER stretcher and appears to be comfortable. is at bedside. HEENT: Head is atraumatic, normocephalic. Pupils equal, round. Sclerae is anicteric. NECK: Supple. No JVD. No lymphadenopathy. No thyromegaly. No carotid bruit. LUNGS: Clear to auscultation. No wheezes or rhonchi. No intercostal retractions. HEART: Irregularly irregular rate and rhythm. No murmur. ABDOMEN: Soft. Bowel sounds are present. No masses. Right lower abdominal tenderness. No CVA tenderness EXTREMITIES: No pedal edema. No calf tenderness. Dorsalis pedis +2 bilaterally. NEUROLOGICAL: Patient is awake, alert and oriented x3. Cranial nerves 2 through 12 are grossly intact. Results CBC & Chem 7: 06/13/19 09:50 06/13/19 09:50 Labs: Abnormal Lab Results - Last 24 Hours (Table) 06/13/19 06/13/19 06/13/19 Range/Units 09:50 09:50 09:50 RBC 5.90 H (3.80-5.40) m/uL Hgb 17.0 H (11.4-16.0) gm/dL Hct 53.4 H (34.0-46.0) % Plt Count 143 L (150-450) k/uL Neutrophils # 8.8 H (1.3-7.7) k/uL PT 19.0 H (9.0-12.0) sec INR 1.9 H (<1.2) Sodium 134 L (137-145) mmol/L BUN 18 H (7-17) mg/dL Plasma Lactic Acid Juan (0.7-2.0) mmol/L Calcium 7.5 L (8.4-10.2) mg/dL Total Protein 5.1 L (6.3-8.2) g/dL Albumin 2.4 L (3.5-5.0) g/dL Urine Appearance (Clear) Urine Protein (Negative) Urine Ketones (Negative) Urine Blood (Negative) Ur Leukocyte Esterase (Negative) Urine RBC (0-5) /hpf Urine Bacteria (None) /hpf Hyaline Casts (0-2) /lpf Urine Mucus (None) /hpf 06/13/19 06/13/19 Range/Units 09:50 10:55 RBC (3.80-5.40) m/uL Hgb (11.4-16.0) gm/dL Hct (34.0-46.0) % Plt Count (150-450) k/uL Neutrophils # (1.3-7.7) k/uL PT (9.0-12.0) sec INR (<1.2) Sodium (137-145) mmol/L BUN (7-17) mg/dL Plasma Lactic Acid Juan 2.9 H* (0.7-2.0) mmol/L Calcium (8.4-10.2) mg/dL Total Protein (6.3-8.2) g/dL Albumin (3.5-5.0) g/dL Urine Appearance Cloudy H (Clear) Urine Protein Trace H (Negative) Urine Ketones 1+ H (Negative) Urine Blood Small H (Negative) Ur Leukocyte Esterase Moderate H (Negative) Urine RBC 6 H (0-5) /hpf Urine Bacteria Rare H (None) /hpf Hyaline Casts 55 H (0-2) /lpf Urine Mucus Many H (None) /hpf Thrombosis Risk Factor Assmnt - DVT/VTE Prophylaxis DVT/VTE Prophylaxis: Pharmacologic Prophylaxis ordered Assessment and Plan Plan: 1. Acute syncopal episode most likely due to hypotension and dehydration. Patient is status post 2 L of IV fluid with improvement of blood pressure. Home dose of Toprol-XL resumed at 100 versus 150 mg daily. Orthostatic vital signs. Cardiology consult requested. 2. Acute urinary tract infection. Patient started on ceftriaxone. Urine culture ordered. 3. Acute colitis. Patient started on Flagyl 500 mg IV piggyback every 8 hours. Consult with GI added. 4. Lactic acidosis secondary to colitis and UTI. 5. Recent hospitalization for GI bleed status post EGD with Dr. Bergman that showed evidence of gastric stapling surgery noted with some gastritis at the site of the gastric stapling. Mild gastritis. Severe erosive esophagitis involving the entire esophagus with mucosal erythema friability and some exudates consistent with LA grade C reflux esophagitis. Protonix 40 mg IV push twice daily. 6. Atrial fibrillation, paroxysmal. Continue eliquis and Toprol-XL at reduced dose 7. Hypertension. Home dose of Metoprolol 150 mg daily. Continue Toprol-XL 100 mg daily. 8. Hyperlipidemia. Continue pravastatin 40 mg by mouth daily. 9. Hypothyroidism. Continue levothyroxine 50 MCG's by mouth daily 10. History of CVA, stable 11. Chronic systolic heart failure Lasix 20 mg every 48 hours 12. Coronary artery disease. DVT prophylaxis: Eliquis GI prophylaxis. Protonix Patient admitted to the hospital for a minimum of 2 night stay. Discharge plan: Most likely return home. PT and OT consults requested. Impression and plan of care have been directed as dictated by the signing physician. Ginny Morillo nurse practitioner acting as scribe for signing physician.
[2019-06-13] MEDS: PRAVASTATIN SODIUM 40 MG TAB PO SCH (15:04)
[2019-06-13] MEDS: metroNIDAZOLE-NS PMX 500 MG in SALINE 1 100ML.BAG IVPB SCH ×2 (15:23→23:35)
[2019-06-13] MEDS: ACETAMINOPHEN TAB 325 MG TAB PO PRN ×2 (18:36→23:39)
[2019-06-13] MEDS: PANTOPRAZOLE 40 MG/10 ML VIAL IVP SCH (22:09)
[2019-06-13] MEDS: APIXABAN 2.5 MG TABLET PO SCH (22:18)
[2019-06-14] MEDS: LEVOTHYROXINE 50 MCG TAB PO SCH (05:43)
[2019-06-14] MEDS: PANTOPRAZOLE 40 MG/10 ML VIAL IVP SCH ×2 (07:48→20:14)
[2019-06-14] MEDS: APIXABAN 2.5 MG TABLET PO SCH ×2 (07:57→20:14)
[2019-06-14] MEDS: METOPROLOL SUCCINATE (ER) 100 MG TAB.ER.24H PO SCH (07:58)
[2019-06-14] MEDS: metroNIDAZOLE-NS PMX 500 MG in SALINE 1 100ML.BAG IVPB SCH ×3 (07:59→23:32)
[2019-06-14] MEDS ORDERED: FUROSEMIDE 10 MG/ML 4 ML VIAL IV STA (08:22)
[2019-06-14] MEDS ORDERED: METOPROLOL SUCCINATE (ER) 50 MG TAB.ER.24H PO SCH (09:00)
[2019-06-14] MEDS ORDERED: FUROSEMIDE 20 MG TAB PO SCH (09:00)
--- NOTE | 2019-06-14 09:31 | XR ---
EXAMINATION TYPE: XR chest 1V portable DATE OF EXAM: 06/14/2019 COMPARISON: 09/25/2017 INDICATION: Cough, rales TECHNIQUE: Single frontal view of the chest is obtained. FINDINGS: The heart size is moderately enlarged. This is an interval change. The pulmonary vasculature is normal. Mild infiltrate is at the right base. Small right pleural effusion is present. Moderate left pleural effusion may be present with some adjacent infiltrate. Pacemaker overlies left chest. Atherosclerotic calcifications at the aorta. There may be a stable krystian cified lymph node at the aortopulmonic window. IMPRESSION: 1. Cardiomegaly with moderate left lower lobe infiltrate and/or effusion. 2. Minimal right lower lobe infiltrate and effusion.
--- NOTE | 2019-06-14 10:22 | P.CRDCN ---
History of Present Illness History of present illness: HISTORY OF PRESENTING ILLNESS This is a pleasant 83-year-old female past medical history significant for idiopathic nonischemic cardiomyopathy status post AICD with improved LV sys tolic function since 2015, mild nonobstructive coronary artery disease per cardiac catheterization in 2009, chronic persistent atrial fibrillation on long- term anticoagulation, CVA and dyslipidemia. She follows in the office with Dr. Saravia. We have been asked to see in consultation for syncope. She is seen and examined sitting up in bed this morning in mild respiratory distress. She is maintaining oxygen saturation on nasal cannula however is tachyneic. She describes feeling short of breath. No chest pain, dizziness or palpitations. She was brought in initially for a syncopal spell yesterday in her driveway. She states she felt extremely weak and dizzy. No chest pain, shortness of breath or palpitations. The next thing she remembers is being on the ground. Blood pressure on arrival was 87/74 with heart rates in the 100-110 range. She received 2 liters fluid bolus on arrival. Per the nursing staff last evening while getting up with assistance to the bathroom she had another episode of hypotension and near syncope. Blood pressure was in the 70's systolic. This morning blood pressure has improved. She was recently admitted and treated for GI bleed with erosive esophagitis, gastritis and colitis. Since her discharge she has had ongoing episodes of abdominal discomfort. DIAGNOSTICS EKG reveals atrial fibrillation heart rate of 113 with nonspecific T-wave abnormalities in the precordial leads. CT of the abdomen and pelvis reveals fluid-filled colon, air fluid levels suggesting acute uncomplicated colitis, new diffuse mesenteric edema and new small volume ascites, anasarca to be considered. Partially visualized bilateral pleural effusions. No chest xray on admission. Laboratory reviewed, WBC 10.6, hemoglobin 17, platelets 143, sodium 134, potassium 4.1, creatinine 0.96, magnesium 1.6, troponin negative 1, lactic acid on admission 2. 9 repeat 2.0. Current cardiac medications include Lasix 20 mg every other day, pravastatin 40 mg daily, Toprol 150 mg daily and Eliquis 2.5 mg twice a day. Most recent echocardiogram obtained in the office January 2019 reveals preser anusha LV systolic function with ejection fraction 50%, global LV hypokinesia noted, moderately dilated left atrium, mildly dilated right atrium, moderate to severe MR, mildly calcified aortic valve and pacemaker leads in the RA and RV. REVIEW OF SYSTEMS At the time of my exam: CONSTITUTIONAL: Denies fever or chills. CARDIOVASCULAR: Denies chest pain, shortness of breath, orthopnea, PND or palpitations. RESPIRATORY: Denies cough. GASTROINTESTINAL: Denies abdominal pain, diarrhea, constipation, nausea or vomiting. MUSCULOSKELETAL: Denies myalgias. NEUROLOGIC: Denies numbness, tingling or weakness. ENDOCRINE: Denies fatigue, weight change, polydipsia or polyurina. GENITOURINARY: Denies burning, hematuria or urgency with micturation. HEMATOLOGIC: Denies history of anemia or bleeding. PHYSICAL EXAMINATION Blood pressure 108/76 heart rate 83 afebrile and maintaining oxygen saturation on nasal cannula. CONSTITUTIONAL: No apparent distress. HEENT: Head is normocephalic. Pupils are equal, round. Sclerae anicteric. Mucous membranes of the mouth are moist. No JVD. No carotid bruit. CHEST EXAMINATION: Bibasilar course rales. No wheezes or rhonchi. No chest wall tenderness is noted on palpation or with deep breathing. HEART EXAMINATION: Irregular rate and rhythm. S1, S2 heard. Systolic ejection murmur at the apex, no gallops or rub. ABDOMEN: Soft, nontender. Positive bowel sounds. EXTREMITIES: 2+ peripheral pulses, no lower extremity edema and no calf tenderness. NEUROLOGIC EXAMINATION: Patient is awake, alert and oriented x3. ASSESSMENT Acute on chronic diastolic heart failure Syncope, likely related to orthostatic changes Lactic acidosis Colitis Chronic persistent atrial fibrillation on parts counterman anti-coagulation. She has been persistent since 01/2019 on device interrogations. History of embolic CVA PLAN Obtain stat chest x-ray. Give one dose of IV lasix 40 mg now. Interrogate [employer] device. Discontinue IV fluids. Agree with lowering dose of Torpol to 100 mg daily, hold for systolic bp less than 90. Further recommendations to follow based on clinical course. Thank you kindly for this consultation. Nurse Practitioner note has been reviewed, I agree with a documented findings and plan of care. Patient was seen and examined. Past Medical History Past Medical History: Atrial Fibrillation, Coronary Artery Disease (CAD), Heart Failure, CVA/TIA, Deep Vein Thrombosis (DVT), Hyperlipidemia, Hypertension, Osteoarthritis (OA), Thyroid Disorder Additional Past Medical History / Comment(s): states "it feels like when I swallow something is causing what I am swallowing to go into my lungs,"HX UTI History of Any Multi-Drug Resistant Organisms: None Reported Past Surgical History: AICD, Cardiac Ablation, Section, Hysterectomy, Orthopedic Surgery, Pacemaker Additional Past Surgical History / Comment(s): BILATERAL KNEE,stomach stapled Past Anesthesia/Blood Transfusion Reactions: No Reported Reaction Additional Past Anesthesia/Blood Transfusion Reaction / Comment(s): no hx blood transfusion Type of Cardiac Device: Biventricular Pacemaker, Permanent Pacemaker, AICD Device Placement Date:: 2010 [facility] Past Psychological History: No Psychological Hx Reported Smoking Status: Never smoker Past Alcohol Use History: None Reported Past Drug Use History: None Reported - Past Family History Father Family Medical History: Cancer Additional Family Medical History / Comment(s): bowel Sister(s) Family Medical History: Cancer Additional Family Medical History / Comment(s): breast Medications and Allergies Home Medications Medication Instructions Recorded Confirmed Type RX: Metoprolol Succinate (ER) 50 mg PO QAM 11/04/15 06/13/19 History [Toprol XL] RX: Apixaban [Eliquis] 2.5 mg PO BID 06/02/19 06/13/19 History RX: Furosemide [Lasix] 20 mg PO Q48H 06/02/19 06/13/19 History RX: LORazepam [Ativan] 0.5 mg PO DAILY PRN 06/02/19 06/13/19 History RX: Levothyroxine Sodium 50 mcg PO DAILY 06/02/19 06/13/19 History [Synthroid] RX: Metoprolol Succinate (ER) 100 mg PO DAILY 06/02/19 06/13/19 History [Toprol XL] RX: Pravastatin Sodium [Pravachol] 40 mg PO DAILY@1500 06/02/19 06/13/19 History Nitrofurantoin Monohyd/M-Cryst 100 mg PO Q12HR 06/13/19 06/13/19 History [Macrobid] Allergies Allergy/AdvReac Type Severity Reaction Status Date / Time codeine AdvReac Nausea & Verified 06/13/19 10:38 Vomiting monosodium glutamate [MSG] AdvReac headache Verified 06/13/19 10:38 Physical Exam Vitals: Vital Signs Temp Pulse Pulse Resp BP BP Pulse Ox 06/14/19 07:00 97.7 F 83 15 108/76 97 06/14/19 03:56 18 06/14/19 02:50 97.7 F 99 110/71 91 L 06/14/19 00:20 109 H 18 06/13/19 23:30 118 H 87/58 06/13/19 22:11 87 18 106/72 91 L 06/13/19 20:00 106 H 18 06/13/19 19:00 97.5 F L 79 18 95/63 92 L 06/13/19 18:26 145/83 06/13/19 16:55 95/63 06/13/19 16:42 88/57 06/13/19 16:06 102/69 06/13/19 16:00 77/59 06/13/19 15:46 16 06/13/19 15:15 97.7 F 73 16 99/61 92 L 06/13/19 13:44 95 143/67 91 L 06/13/19 12:34 98.1 F 98 20 121/78 99 06/13/19 11:30 104 H 22 100/82 96 06/13/19 11:00 108 H 21 106/63 06/13/19 10:50 109 H 21 106/63 06/13/19 10:40 92 22 100/69 96 06/13/19 10:30 91 21 109/66 96 06/13/19 10:20 106 H 20 109/66 96 06/13/19 10:17 105 H 20 95/59 96 06/13/19 10:10 100 20 95/59 06/13/19 10:00 99 20 87/74 06/13/19 09:59 98.4 F 108 H 24 87/74 94 L Intake and Output 06/13/19 06/14/19 06/14/19 22:59 06:59 14:59 Intake Total 450 Output Total 400 Balance 450 -400 Intake: Intake, IV Titration 450 Amount Sodium Chloride 0.9% 1, 450 000 ml @ 75 mls/hr IV . [id number] [facility] Rx#:[id number] Output: Urine 400 Other: # Voids 1 # Bowel Movements 1 Results 06/13/19 09:50 06/13/19 09:50 Cardiac Enzymes 06/13/19 06/13/19 Range/Units 09:50 09:50 AST 30 (14-36) U/L Troponin I <0.012 (0.000-0.034) ng/mL Coagulation 06/13/19 Range/Units 09:50 PT 19.0 H (9.0-12.0) sec APTT 27.4 (22.0-30.0) sec CBC 06/13/19 Range/Units 09:50 WBC 10.6 (3.8-10.6) k/uL RBC 5.90 H (3.80-5.40) m/uL Hgb 17.0 H (11.4-16.0) gm/dL Hct 53.4 H (34.0-46.0) % Plt Count 143 L (150-450) k/uL Comprehensive Metabolic Panel 06/13/19 Range/Units 09:50 Sodium 134 L (137-145) mmol/L Potassium 4.1 (3.5-5.1) mmol/L Chloride 99 (98-107) mmol/L Carbon Dioxide 26 (22-30) mmol/L BUN 18 H (7-17) mg/dL Creatinine 0.96 (0.52-1.04) mg/dL Glucose 90 (74-99) mg/dL Calcium 7.5 L (8.4-10.2) mg/dL AST 30 (14-36) U/L ALT 12 (4-34) U/L Alkaline Phosphatase 43 (38-126) U/L Total Protein 5.1 L (6.3-8.2) g/dL Albumin 2.4 L (3.5-5.0) g/dL Current Medications Generic Name Dose Route Start Last Admin Trade Name Freq PRN Reason Stop Dose Admin Acetaminophen 650 mg 06/13/19 18:29 06/13/19 23:39 Tylenol Tab PO 650 mg Q6HR PRN Administration Fever and/ or Mild Pain Apixaban 2.5 mg 06/13/19 21:00 06/14/19 07:57 Eliquis PO 2.5 mg BID ERICA Administration Furosemide 20 mg 06/14/19 09:00 06/14/19 07:57 Lasix PO 20 mg Q48H ERICA Administration Sodium Chloride 1,000 mls @ 75 mls/hr 06/13/19 12:30 06/13/19 23:37 Saline 0.9% IV 75 mls/hr .[id number] ERICA Administration Ceftriaxone Sodium 1 gm/ 50 mls @ 100 mls/hr 06/13/19 13:45 06/14/19 07:49 Sodium Chloride IVPB 100 mls/hr Q24HR ERICA Administration Metronidazole 500 mg/ IV 100 mls @ 100 mls/hr 06/13/19 16:00 06/14/19 07:59 Solution IVPB 100 mls/hr Q8HR ERICA Administration Levothyroxine Sodium 50 mcg 06/14/19 06:30 06/14/19 05:43 Synthroid PO 50 mcg 0630 ERICA Administration Lorazepam 0.5 mg 06/13/19 11:25 Ativan PO DAILY PRN Anxiety Metoprolol Succinate 100 mg 06/14/19 09:00 06/14/19 07:58 Toprol Xl PO 100 mg QAM [facility] Administration Ondansetron HCl 4 mg 06/13/19 12:16 06/13/19 13:37 Zofran IVP 4 mg Q8HR PRN Administration Nausea And Vomiting Pantoprazole Sodium 40 mg 06/13/19 21:00 06/14/19 07:48 Protonix IVP 40 mg BID ERICA Administration Pravastatin Sodium 40 mg 06/13/19 15:00 06/13/19 15:04 Pravachol PO 40 mg DAILY@1500 [facility] Administration Intake and Output 06/13/19 06/14/19 06/14/19 22:59 06:59 14:59 Intake Total 450 Output Total 400 Balance 450 -400 Intake: Intake, IV Titration 450 Amount Sodium Chloride 0.9% 1, 450 000 ml @ 75 mls/hr IV . [id number] [facility] Rx#:[id number] Output: Urine 400 Other: # Voids 1 # Bowel Movements 1 06/13/19 09:50 06/13/19 09:50
[2019-06-14] MEDS: ACETAMINOPHEN TAB 325 MG TAB PO PRN (10:42)
[2019-06-14 10:49] VITALS: BMI 21.6
--- NOTE | 2019-06-14 11:14 | P.PN ---
Subjective Progress Note Date: 06/14/19 This is a pleasant 83-year-old patient of Dr. Dorado. Past medical history significant for paroxysmal atrial fibrillation, coronary artery disease, chronic systolic heart failure, CVA, hyperlipidemia, hypertension, osteoarthritis, hypothyroidism, DVT. History of AICD implantation in 2010. Denies any history of diabetes. Has never smoked. Patient was recently hospitalized and discharged on June 05 for acute GI bleed abdominal pain secondary to severe erosive esophagitis, gastritis and possible colitis. Pathology supports the identified diagnoses, no malignancy noted. states that patient is having same symptoms as before with abdominal pain. Patient left here on Tuesday and was doing okay on starting on Tuesday she was developing abdominal pain. She dropped a urine specimen and Dr. Liu's office and was started on Macrodantin, currently has taken 4 tablets total. Patient's states that she was in the driveway getting ready to go to a follow-up appointment with Dr. Pelaez and she passed out in the driveway. There is concern patient is still having black tarry stools and is also on eliquis. She complains of generalized weakness, no chest pain or shortness of breath. Patient came into [facility] emergency center for evaluation. She was afebrile, blood pressure 87/74, heart rate 104, pulse ox 94%. Hemoglobin 17, platelet count 143, WBC 10.6. Sodium 134, potassium 4.1, chloride 99, CO2 26, BUN 18, creatinine 0.96, calcium 7.5, albumin 2.4, lipase 200, liver function tests within normal limits. Lactic acid 2.9, troponin negative. Stool for occult blood negative. Urinalysis dark brown, cloudy, blood small, leukoesterase moderate, bacteria rare. EKG atrial fibrillation. CAT scan of the abdomen and pelvis revealed acute uncomplicated colitis. There is limitation for evaluation of pericolonic fat stranding given the new diffuse mesenteric edema and new small volume ascites. Anasarca also progressed from prior. Patient is status post 2 L of IV fluids in current blood pressure 121/78. Patient admitted to the cardiac stepdown unit but will be transferred to [facility] with telemetry. Orthostatics ordered and patient started on Rocephin and Flagyl. 06/13: Patient is afebrile, heart rate 83, blood pressure 108/76, pulse ox 97% on 3 L nasal cannula. 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 Patient had additional near syncopal episode while going to the bathroom. Blood pressure was systolic of 70. Repeat lactic acid 2.0. Patient had increasing cough and rales this morning at 1 dose of IV Lasix 40 mg IV push was ordered by cardiology. Chest x- ray revealed cardiomegaly with moderate left lower lobe infiltrate and/or effusion. Minimal right lower lobe infiltrate and effusion. By the time of our evaluation, patient's renal status is stable. Patient apparently has had coughing since she left the hospital on her previous admission. This was not revealed during evaluation yesterday. We will place the patient in isolation and start influenza testing followed by COVID-19 testing. Objective - Vital Signs Vital signs: Vital Signs Temp 97.7 F 06/14/19 07:00 Pulse 83 06/14/19 07:00 Resp 15 06/14/19 07:00 BP 108/76 06/14/19 07:00 Pulse Ox 97 06/14/19 07:00 Intake & Output 06/13/19 06/14/19 06/14/19 18:59 06:59 18:59 Intake Total 450 Output Total 400 Balance 50 Weight 64.41 kg Intake: Intake, IV Titration 450 Amount Sodium Chloride 0.9% 1, 450 000 ml @ 75 mls/hr IV . [id number] [facility] Rx#:[id number] Output: Urine 400 Other: # Voids 1 # Bowel Movements 1 - Exam Review of Systems Constitutional: Reports fatigue, Reports weakness, Denies chills, Denies fever Eyes: denies blurred vision, denies pain Ears, nose, mouth and throat: Reports vertigo, Denies dysphagia, Denies nasal congestion, Denies nasal discharge Cardiovascular: Reports lightheadedness, Reports syncope, Denies chest pain, Denies edema, Denies shortness of breath Respiratory: Denies cough, Denies cough with sputum, Denies dyspnea, Denies excessive sputum, Denies hemoptysis, Denies home oxygen, Denies respiratory infections, Denies wheezing Gastrointestinal: Reports melena, Denies abdominal pain, Denies diarrhea, Denies nausea, Denies vomiting Genitourinary: Denies dysuria, Denies hematuria Menstruation: Reports postmenopausal Musculoskeletal: Reports muscle weakness, Denies frequent falls, Denies gait dysfunction, Denies myalgias Integumentary: Denies pruritus, Denies rash, Denies wounds Neurological: Denies change in mentation, Denies change in speech, Denies numbness, Denies weakness Psychiatric: Denies anxiety, Denies depression Endocrine: Denies fatigue, Denies weight change Physical examination Gen: This is an 82-year-old female. Patient is resting in bed and appears to be comfortable. is at bedside. HEENT: Head is atraumatic, normocephalic. Pupils equal, round. Sclerae is anicteric. NECK: Supple. No JVD. No lymphadenopathy. No thyromegaly. No carotid bruit. LUNGS: Bilateral rales. No intercostal retractions. HEART: Irregularly irregular rate and rhythm. No murmur. ABDOMEN: Soft. Bowel sounds are present. No masses. Right lower abdominal tenderness. No CVA tenderness EXTREMITIES: No pedal edema. No calf tenderness. Dorsalis pedis +2 bilaterally. NEUROLOGICAL: Patient is awake, alert and oriented x3. Cranial nerves 2 through 12 are grossly intact. - Labs CBC & Chem 7: 06/13/19 09:50 06/13/19 09:50 Labs: Abnormal Lab Results - Last 24 Hours (Table) 06/13/19 06/13/19 06/13/19 Range/Units 09:50 09:50 09:50 RBC 5.90 H (3.80-5.40) m/uL Hgb 17.0 H (11.4-16.0) gm/dL Hct 53.4 H (34.0-46.0) % Plt Count 143 L (150-450) k/uL Neutrophils # 8.8 H (1.3-7.7) k/uL PT 19.0 H (9.0-12.0) sec INR 1.9 H (<1.2) Sodium 134 L (137-145) mmol/L BUN 18 H (7-17) mg/dL Plasma Lactic Acid Juan (0.7-2.0) mmol/L Calcium 7.5 L (8.4-10.2) mg/dL Total Protein 5.1 L (6.3-8.2) g/dL Albumin 2.4 L (3.5-5.0) g/dL Urine Appearance (Clear) Urine Protein (Negative) Urine Ketones (Negative) Urine Blood (Negative) Ur Leukocyte Esterase (Negative) Urine RBC (0-5) /hpf Urine Bacteria (None) /hpf Hyaline Casts (0-2) /lpf Urine Mucus (None) /hpf 06/13/19 06/13/19 06/13/19 Range/Units 09:50 10:55 14:10 RBC (3.80-5.40) m/uL Hgb (11.4-16.0) gm/dL Hct (34.0-46.0) % Plt Count (150-450) k/uL Neutrophils # (1.3-7.7) k/uL PT (9.0-12.0) sec INR (<1.2) Sodium (137-145) mmol/L BUN (7-17) mg/dL Plasma Lactic Acid Juan 2.9 H* 3.1 H* (0.7-2.0) mmol/L Calcium (8.4-10.2) mg/dL Total Protein (6.3-8.2) g/dL Albumin (3.5-5.0) g/dL Urine Appearance Cloudy H (Clear) Urine Protein Trace H (Negative) Urine Ketones 1+ H (Negative) Urine Blood Small H (Negative) Ur Leukocyte Esterase Moderate H (Negative) Urine RBC 6 H (0-5) /hpf Urine Bacteria Rare H (None) /hpf Hyaline Casts 55 H (0-2) /lpf Urine Mucus Many H (None) /hpf 06/13/19 Range/Units 18:46 RBC (3.80-5.40) m/uL Hgb (11.4-16.0) gm/dL Hct (34.0-46.0) % Plt Count (150-450) k/uL Neutrophils # (1.3-7.7) k/uL PT (9.0-12.0) sec INR (<1.2) Sodium (137-145) mmol/L BUN (7-17) mg/dL Plasma Lactic Acid Juan 2.7 H* (0.7-2.0) mmol/L Calcium (8.4-10.2) mg/dL Total Protein (6.3-8.2) g/dL Albumin (3.5-5.0) g/dL Urine Appearance (Clear) Urine Protein (Negative) Urine Ketones (Negative) Urine Blood (Negative) Ur Leukocyte Esterase (Negative) Urine RBC (0-5) /hpf Urine Bacteria (None) /hpf Hyaline Casts (0-2) /lpf Urine Mucus (None) /hpf Assessment and Plan Plan: 1. Acute syncopal episode most likely due to hypotension and dehydration. Patient is status post multiple fluid boluses. Home dose of Toprol-XL resumed at 100 versus 150 mg daily. Orthostatic vital signs. Cardiology consult appreciated. [employer] device to be interrogated. IV fluids discontinued. 2. Acute urinary tract infection. Patient started on ceftriaxone. Urine culture ordered. 3. Acute colitis. Patient started on Flagyl 500 mg IV piggyback every 8 hours. Consult with GI added. 4. Lactic acidosis secondary to colitis and UTI. 5. Acute on chronic diastolic heart failure. Patient received an additional dose of Lasix 40 mg this morning. Influenza A and B testing followed by COVID- 19 testing will be done. 6. Recent hospitalization for GI bleed status post EGD with Dr. Bergman that showed evidence of gastric stapling surgery noted with some gastritis at the site of the gastric stapling. Mild gastritis. Severe erosive esophagitis involving the entire esophagus with mucosal erythema friability and some exud ates consistent with LA grade C reflux esophagitis. Protonix 40 mg IV push twice daily. 7. Atrial fibrillation, paroxysmal. Continue eliquis and Toprol-XL at reduced dose 8. Hypertension. Home dose of Metoprolol 150 mg daily. Continue Toprol-XL 100 mg daily. 9. Hyperlipidemia. Continue pravastatin 40 mg by mouth daily. 10. Hypothyroidism. Continue levothyroxine 50 MCG's by mouth daily 11. History of CVA, stable 12. Chronic systolic heart failure Lasix 20 mg every 48 hours 13. Coronary artery disease. DVT prophylaxis: Eliquis GI prophylaxis. Protonix Discharge plan: Most likely return home. PT and OT consults requested. Impression and plan of care have been directed as dictated by the signing physician. Ginny Morillo nurse practitioner acting as scribe for signing physician.
--- NOTE | 2019-06-14 12:22 | AS ---
Documentation Clarification Form Date: 06/14/2019 11:37:43 AM From: Martina Yao RN, CCDS Admit Date: 06/13/2019 12:55:00 PM Patient Name: Clarisa Baum Visit Number: [id number] Discharge Date: ATTENTION: The Clinical Documentation Specialists (CDI) and [facility] Coding Staff appreciate your assistance in clarifying documentation. Please respond to the clarification below the line at the bottom and electronically sign. The CDI & [facility] Coding staff will review the response and follow-up if needed. Please note: Queries are made part of the Legal Health Record. If you have any questions, please contact the author of this message via ITS. Dr. Patel Lawrence The patient presented to ED on 06/12with abdominal pain and complaint of syncopal episode. She was found to have low blood pressure, tachycardia and lactic acid 2.9. Request clarification of clinical significance. History/Risk Factors: Chronic persistent Atrial Fibrillation, Colitis, Hypertension, UTI Clinical Indicators: 83-year-old female with syncopal episode, hypotension. On presentation to ED on 06/12 blood pressure 87/74 108 24 98.4 94 % RA (at 09:59). She complains of coughing since she left the hospital on her pervious admission 06/03- 06/05. 06/12 WBC 10.6 UA: Ur Leukocyte Esterase Moderate 06/12 Lactic acid: 2.9, 3.1, 2.7, 2.0 06/12 Urine culture: pending 06/12 EKG: Atrial Fibrillation with RVR heart rate 113 06/13 Chest x-ray: Cardiomegaly with moderate left lower lobe infiltrate and/or effusion Other Clinical Indicators: 06/12 H/P "Lactic acidosis secondary to colitis and UTI. Treatment: Rocephin 1 gm IV Q 24 hrs Flagyl 500 mg IV Q8hrs Isolation Precautions Monitor CBC, Vital signs In your professional opinion, please clarify if these findings signify one of the following conditions, whether the condition is POA, and cause, if known: Condition Sepsis ruled out Sepsis secondary to Colitis, UTI (present on admission) Other, please specify Unable to determine SIRS Criteria (2 or more of the following may indicate SIRS): -Temperature < 96.8F (36C) or > 101.0F (38.3C) -Heart Rate > 90 bpm -Respiratory Rate > 20 breaths/min or PaCO2 < 32 mmHg -White Blood Cell Count > 12,000 or < 4,000 cells/mm3 or > 10% bands -Lactate >2.0 mmol/L (>4.0 is equivalent to septic shock) (Last Revision: June 2017) MTDD
[2019-06-14] MEDS: PRAVASTATIN SODIUM 40 MG TAB PO SCH (17:00)
[2019-06-14] MEDS: FUROSEMIDE 10 MG/ML 4 ML VIAL IV SCH (20:13)
--- NOTE | 2019-06-14 20:57 | CONS ---
CONSULTATION DATE OF DICTATION: 06/14/2019 REASON FOR CONSULTATION: Abdominal pain, possible colitis. HISTORY OF PRESENT ILLNESS: The patient is an 83-year-old pleasant white female with history of atrial fibrillation, coronary artery disease, congestive heart failure, hypertension, hyperlipidemia, and history of AICD implantation. She was admitted to the hospital complaining of lower abdominal pain for the last 2 weeks' duration. The patient was recently discharged from the hospital about 4 days ago. She was admitted with acute GI bleed and underwent an upper endoscopy by me that revealed severe grade C reflux esophagitis and mild antral gastritis. She was on Eliquis, which had been on hold at that time. She was sent home on Protonix 40 mg twice daily. Apparently she did well for 2 or 3 days and then started having worsening lower abdominal pain. She went to see Dr. Liu and was diagnosed with UTI and started on Macrodantin. She developed diarrhea with 3 loose bowel movements. She came to the emergency room and had a CT of the abdomen and pelvis done that revealed acute uncomplicated colitis with thickening of the colon. She was subsequently started on Rocephin and Flagyl. The patient this morning is feeling better. She still has lower abdominal discomfort. No nausea, vomiting. No rectal bleeding or melena. PAST MEDICAL HISTORY: Significant for atrial fibrillation, coronary artery disease, congestive heart failure, CVA, DVT, hyperlipidemia, hypertension, degenerative joint disease, hypothyroidism. PAST SURGICAL HISTORY: Bilateral knee replacement, stomach stapling surgery, hysterectomy, , AICD implantation, cardiac ablation. MEDICATIONS: Medications at home include metoprolol, Eliquis, Lasix, Synthroid, Toprol, pravastatin, Macrobid. ALLERGIES: CODEINE, MSG. SOCIAL HISTORY: No smoking. No alcohol use. FAMILY HISTORY: Sister had breast cancer. Father had bowel cancer. REVIEW OF SYSTEMS: CARDIOPULMONARY: No chest pain or shortness of breath. GENITOURINARY: No dysuria or hematuria. MUSCULOSKELETAL: Complaints of back pain. NEUROLOGY: Unremarkable. PSYCHIATRIC: Unremarkable. ENT/VISION: Unremarkable. GI: As mentioned above. CONSTITUTIONAL: No recent weight loss. No fever, chills, night sweats. ENDOCRINE: Unremarkable. PHYSICAL EXAMINATION: She appears comfortable. No apparent distress. Vital signs are stable. Blood pressure 103/67, pulse rate 99, temperature 97.8. HEENT examination unremarkable. Conjunctivae pink. Sclerae anicteric. Oral cavity no lesions. NECK: No JVD or lymph node enlargement. CHEST: Clear to auscultation. HEART: Regular rate and rhythm. ABDOMEN: Soft. There was minimal tenderness in the lower abdominal area. Bowel sounds are positive. No organomegaly. EXTREMITIES: No pedal edema. SKIN: No rashes. NEUROLOGIC: Alert and oriented x3. No focal deficits. LABS/IMAGING: WBC 10.6, hemoglobin 17, platelets 143. INR is 1.9. AST, ALT, T-bilirubin and alkaline phosphatase are within normal limits. Plasma lactic acid was 2.9. Repeat was 2. Basic metabolic panel is within normal limits. CT of the abdomen and pelvis done in the emergency room at the time of admission to the hospital yesterday showed mild hepatic steatosis, colon fluid filled with paucity of haustral folds and air fluid levels with no significant dilation suggestive of acute uncomplicated colitis. Also there was some pericolonic fat stranding noted. IMPRESSION: 1. This is a lady who presented to the hospital with lower abdominal pain and diarrhea for the last 2 or [address] of the abdomen showed mild uncomplicated colitis. She is empirically started on Rocephin as well as Flagyl. She was recently hospitalized for acute GI bleed, at which time she had an upper endoscopy done that showed severe esophagitis. At this time rule out C difficile colitis. 2. Recent gastrointestinal bleed, status post EGD done a week ago that showed severe reflux esophagitis. Presently on Protonix 40 mg daily. 3. History of atrial fibrillation, on Eliquis. 4. Urinary tract infection, on antibiotics. 5. History of cardiac arrhythmia with AICD implantation. RECOMMENDATIONS: 1. Continue with empiric antibiotics. 2. Obtain stool for C difficile toxin. 3. Repeat labs in the morning. 4. Continue with a clear liquid diet and advance as tolerated. 5. Will follow with you closely. Thank you for this consultation. MMODL / IJN: [id number] /
[2019-06-14] MEDS: ONDANSETRON 4 MG/2 ML VIAL IVP PRN (23:29)
[2019-06-15] MEDS: ONDANSETRON 4 MG/2 ML VIAL IVP PRN (06:22)
[2019-06-15] MEDS: ACETAMINOPHEN TAB 325 MG TAB PO PRN (06:22)
[2019-06-15] MEDS: LEVOTHYROXINE 50 MCG TAB PO SCH (06:22)
[2019-06-15 06:52] LABS: HCT 52.9 % (34.0-46.0); HGB 16.5 gm/dL (11.4-16.0); Hypochromasia Slight; MCH 28.2 pg (25.0-35.0); MCHC 31.1 g/dL (31.0-37.0); MCV 90.6 fL (80.0-100.0); Mean Platelet Volume 8.4; Platelet Count 160 k/uL (150-450); RBC 5.84 m/uL (3.80-5.40); RDW 15.5 % (11.5-15.5); WBC 11.4 k/uL (3.8-10.6)
[2019-06-15 07:11] LABS: Albumin 2.1 g/dL (3.5-5.0); Calcium 7.2 mg/dL (8.4-10.2); Potassium 3.4 mmol/L (3.5-5.1); Total Bilirubin 0.6 mg/dL (0.2-1.3); Total Protein 4.6 g/dL (6.3-8.2)
--- NOTE | 2019-06-15 08:02 | CDI ---
Documentation Clarification Form Date: 06/14/2019 11:37:00 AM From: Martina Yao RN, CCDS Admit Date: 06/13/2019 12:55:00 PM Patient Name: Clarisa Baum Visit Number: [id number] Discharge Date: ATTENTION: The Clinical Documentation Specialists (CDI) and [facility] Coding Staff appreciate your assistance in clarifying documentation. Please respond to the clarification below the line at the bottom and electronically sign. The CDI & [facility] Coding staff will review the response and follow-up if needed. Please note: Queries are made part of the Legal Health Record. If you have any questions, please contact the author of this message via ITS. Dr. Patel Lawrence The patient presented to ED on 06/12 with abdominal pain and complaint of syncopal episode. She was found to have low blood pressure, tachycardia and lactic acid of 2.9. Request a clarification of clinical significance. History/Risk Factors: Chronic persistent Atrial Fibrillation, Colitis, Hypertension, UTI Clinical Indicators: 83-year-old female with syncopal episode, hypotension. On presentation to ED on 06/12 blood pressure 87/74 108 24 98.4 94 % RA (at 09:59). She complains of coughing since she left the hospital on her pervious admission 06/03- 06/05. 06/12 WBC 10.6 UA: Ur Leukocyte Esterase Moderate 06/12 Lactic acid: 2.9, 3.1, 2.7, 2.0 06/12 Urine culture: pending 06/12 EKG: Atrial Fibrillation with RVR heart rate 113 06/13 Chest x-ray: Cardiomegaly with moderate left lower lobe infiltrate and/or effusion Other Clinical Indicators: 06/12 H/P "Lactic acidosis secondary to colitis and UTI". Treatment: Rocephin 1 gm IV Q 24 hrs Flagyl 500 mg IV Q8hrs Isolation Precautions Monitor CBC, Vital signs In your professional opinion, please clarify if these findings signify one of the following conditions, whether the condition is POA, and cause, if known: Condition Sepsis ruled out XX Sepsis secondary to Colitis, UTI (present on admission) Other, please specify Unable to determine SIRS Criteria (2 or more of the following may indicate SIRS): -Temperature < 96.8F (36C) or > 101.0F (38.3C) -Heart Rate > 90 bpm -Respiratory Rate > 20 breaths/min or PaCO2 < 32 mmHg -White Blood Cell Count > 12,000 or < 4,000 cells/mm3 or > 10% bands -Lactate >2.0 mmol/L (>4.0 is equivalent to septic shock) (Last Revision: June 2017) MTDD
[2019-06-15] MEDS: APIXABAN 2.5 MG TABLET PO SCH ×2 (08:44→21:02)
[2019-06-15] MEDS: metroNIDAZOLE-NS PMX 500 MG in SALINE 1 100ML.BAG IVPB SCH ×2 (08:44→15:14)
[2019-06-15] MEDS: METOPROLOL SUCCINATE (ER) 100 MG TAB.ER.24H PO SCH (08:44)
[2019-06-15] MEDS: PANTOPRAZOLE 40 MG/10 ML VIAL IVP SCH ×2 (08:45→21:02)
[2019-06-15] MEDS: FUROSEMIDE 10 MG/ML 4 ML VIAL IV SCH ×2 (09:22→21:02)
[2019-06-15] MEDS: POTASSIUM CHLORIDE ER 20 MEQ TAB.ER PO SCH ×2 (09:23→09:26)
[2019-06-15] MEDS: MAGNESIUM SULFATE-D5W PMX 1 GM in DEXTROSE/WATER 1 100ML.BAG IVPB SCH ×2 (10:43→11:45)
--- NOTE | 2019-06-15 11:46 | P.PN ---
Subjective Progress Note Date: 06/15/19 This is a pleasant 83-year-old patient of Dr. Dorado. Past medical history significant for paroxysmal atrial fibrillation, coronary artery disease, chronic systolic heart failure, CVA, hyperlipidemia, hypertension, osteoarthritis, hypothyroidism, DVT. History of AICD implantation in 2010. Denies any history of diabetes. Has never smoked. Patient was recently hospitalized and discharged on June 05 for acute GI bleed abdominal pain secondary to severe erosive esophagitis, gastritis and possible colitis. Pathology supports the identified diagnoses, no malignancy noted. states that patient is having same symptoms as before with abdominal pain. Patient left here on Tuesday and was doing okay on starting on Tuesday she was developing abdominal pain. She dropped a urine specimen and Dr. Liu's office and was started on Macrodantin, currently has taken 4 tablets total. Patient's states that she was in the driveway getting ready to go to a follow-up appointment with Dr. Pelaez and she passed out in the driveway. There is concern patient is still having black tarry stools and is also on eliquis. She complains of generalized weakness, no chest pain or shortness of breath. Patient came into [facility] emergency center for evaluation. She was afebrile, blood pressure 87/74, heart rate 104, pulse ox 94%. Hemoglobin 17, platelet count 143, WBC 10.6. Sodium 134, potassium 4.1, chloride 99, CO2 26, BUN 18, creatinine 0.96, calcium 7.5, albumin 2.4, lipase 200, liver function tests within normal limits. Lactic acid 2.9, troponin negative. Stool for occult blood negative. Urinalysis dark brown, cloudy, blood small, leukoesterase moderate, bacteria rare. EKG atrial fibrillation. CAT scan of the abdomen and pelvis revealed acute uncomplicated colitis. There is limitation for evaluation of pericolonic fat stranding given the new diffuse mesenteric edema and new small volume ascites. Anasarca also progressed from prior. Patient is status post 2 L of IV fluids in current blood pressure 121/78. Patient admitted to the cardiac stepdown unit but will be transferred to [facility] with telemetry. Orthostatics ordered and patient started on Rocephin and Flagyl. 06/13: Patient is afebrile, heart rate 83, blood pressure 108/76, pulse ox 97% on 3 L nasal cannula. quality assurance monitor chassis atrial fibrillation. Patient had additional near syncopal episode while going to the bathroom. Blood pressure was systolic of 70. Repeat lactic acid 2.0. Patient had increasing cough and rales this morning at 1 dose of IV Lasix 40 mg IV push was ordered by cardiology. Chest x- ray revealed cardiomegaly with moderate left lower lobe infiltrate and/or effusion. Minimal right lower lobe infiltrate and effusion. By the time of our evaluation, patient's renal status is stable. Patient apparently has had coughing since she left the hospital on her previous admission. This was not revealed during evaluation yesterday. We will place the patient in isolation and start influenza testing followed by COVID-19 testing. 06/14: COVID-19 testing result remains pending. She has continued to complain of abdominal pain. No diarrhea but having loose stools. Stool has not been send for C diff toxin. Discussed case with Dr. Bergman and she will consider doing colonoscopy if patient continues to have abdominal pain and Covid 19 testing is negative. We will add and Dilaudid as needed for pain. Patient has had no further syncopal episodes. Patient is afebrile, heart rate 100, blood pressure 123/84, pulse ox 92% on 4 L nasal cannula. Repeat lab work reveals WBC 11.4, hemoglobin 16.5, platelet count 160. Sodium 136, potassium 3.4, chloride 100, CO2 29, BUN 18, creatinine 0.92. Potassium and magnesium replacement has been ordered by cardiology. Patient remains on Lasix 40 mg IV every 12 hours. PT and OT are recommending subacute rehab. Family had identified choice is [facility]. We will make sure social work is following. COVID-19 testing returns positive, patient will need to negative testing 24 hours apart in order to go to rehab. Objective - Vital Signs Vital signs: Vital Signs Temp 97.7 F 06/15/19 08:36 Pulse 100 06/15/19 08:36 Resp 24 06/15/19 08:36 BP 123/84 06/15/19 08:36 Pulse Ox 92 L 06/15/19 08:36 Intake & Output 06/14/19 06/15/19 06/15/19 18:59 06:59 18:59 Intake Total 120 Output Total 251 850 Balance -131 -850 Weight 64.41 kg Intake: Oral 120 Output: Urine 251 850 Other: # Voids 1 - Exam Review of Systems Constitutional: Reports fatigue, Reports weakness, Denies chills, Denies fever Ears, nose, mouth and throat: Reports vertigo, Denies dysphagia, Denies nasal co ngestion, Denies nasal discharge Cardiovascular: Reports lightheadedness, Reports syncope, Denies chest pain, Denies edema, Denies shortness of breath Respiratory: Denies cough, Denies cough with sputum, Denies dyspnea, Denies excessive sputum, Denies hemoptysis, Denies home oxygen, Denies respiratory infections, Denies wheezing Gastrointestinal: Reports melena, reports abdominal pain, Denies diarrhea, Denies nausea, Denies vomiting Genitourinary: Denies dysuria, Denies hematuria Menstruation: Reports postmenopausal Musculoskeletal: Reports muscle weakness, Denies frequent falls, Denies gait dysfunction, Denies myalgias Integumentary: Denies pruritus, Denies rash, Denies wounds Neurological: Denies change in mentation, Denies change in speech, Denies numbness, Denies weakness Psychiatric: Denies anxiety, Denies depression Endocrine: Denies fatigue, Denies weight change Physical examination Gen: This is an 82-year-old female. Patient is resting in bed and appears to be comfortable. HEENT: Head is atraumatic, normocephalic. Pupils equal, round. Sclerae is anicteric. NECK: Supple. No JVD. No lymphadenopathy. No thyromegaly. No carotid bruit. LUNGS: Bilateral rales. No intercostal retractions. HEART: Irregularly irregular rate and rhythm. No murmur. ABDOMEN: Soft. Bowel sounds are present. No masses. Right lower abdominal tenderness. No CVA tenderness EXTREMITIES: No pedal edema. No calf tenderness. Dorsalis pedis +2 bilaterally. NEUROLOGICAL: Patient is awake, alert and oriented x3. Cranial nerves 2 through 12 are grossly intact. - Labs CBC & Chem 7: 06/15/19 06:27 06/15/19 06:27 Labs: Abnormal Lab Results - Last 24 Hours (Table) 06/15/19 06/15/19 Range/Units 06:27 06:27 WBC 11.4 H (3.8-10.6) k/uL RBC 5.84 H (3.80-5.40) m/uL Hgb 16.5 H (11.4-16.0) gm/dL Hct 52.9 H (34.0-46.0) % Sodium 136 L (137-145) mmol/L Potassium 3.4 L (3.5-5.1) mmol/L BUN 18 H (7-17) mg/dL Calcium 7.2 L (8.4-10.2) mg/dL Total Protein 4.6 L (6.3-8.2) g/dL Albumin 2.1 L (3.5-5.0) g/dL Microbiology - Last 24 Hours (Table) 06/14/19 10:21 Urine Culture - Preliminary Urine,Voided Assessment and Plan Plan: 1. Acute syncopal episode most likely due to hypotension and dehydration. Patient is status post multiple fluid boluses. Home dose of Toprol-XL resumed at 100 versus 150 mg daily. Orthostatic vital signs. Cardiology consult appreciated. [employer] device interrogated. IV fluids discontinued. 2. Acute urinary tract infection. Patient started on ceftriaxone. Urine c ulture ordered. 3. Acute colitis. Patient started on Flagyl 500 mg IV piggyback every 8 hours. Consult with GI appreciated. Patient continues to have pain, may consider colonoscopy if Covid 19 testing is negative. 4. Lactic acidosis secondary to colitis and UTI. 5. Acute on chronic diastolic heart failure. Patient received an additional dose of Lasix 40 mg this morning. 6. Cough with abnormal chest x-ray. Influenza A and B testing negative. COVID- 19 testing in progress. 7. Recent hospitalization for GI bleed status post EGD with Dr. Bergman that showed evidence of gastric stapling surgery noted with some gastritis at the site of the gastric stapling. Mild gastritis. Severe erosive esophagitis involving the entire esophagus with mucosal erythema friability and some exudates consistent with LA grade C reflux esophagitis. Protonix 40 mg IV push twice daily. 8. Atrial fibrillation, paroxysmal. Continue eliquis and Toprol-XL at reduced dose 9. Hypertension. Home dose of Metoprolol 150 mg daily. Continue Toprol-XL 100 mg daily. 10. Hyperlipidemia. Continue pravastatin 40 mg by mouth daily. 11. Hypothyroidism. Continue levothyroxine 50 MCG's by mouth daily 12. History of CVA, stable 13. Chronic systolic heart failure Lasix 20 mg every 48 hours 14. Coronary artery disease. DVT prophylaxis: Eliquis GI prophylaxis. Protonix Discharge plan: [facility] on Tuesday Impression and plan of care have been directed as dictated by the signing physician. Ginny Morillo nurse practitioner acting as scribe for signing physician.
--- NOTE | 2019-06-15 11:59 | P.PN ---
Subjective Progress Note Date: 06/15/19 This is a pleasant 83-year-old female past medical history significant for idiopathic nonischemic cardiomyopathy status post AICD with improved LV systolic function since 2016, mild nonobstructive coronary artery disease per cardiac catheterization in 2009, chronic persistent atrial fibrillation on long- term anticoagulation, CVA and dyslipidemia. She follows in the office with Dr. Saravia. We were asked to see in consultation for syncope. Patient was seen in consultation by Dr. Hutton. She was brought in initially for a syncopal spell in her driveway. She states she felt extremely weak and dizzy. No chest pain, shortness of breath or palpitations. The next thing she remembers is being on the ground. Blood pressure on arrival was 87/74 with heart rates in the 100-110 range. She received 2 liters fluid bolus on arrival. While the patient was on the medical unit she again had an episode where she felt as though she may pass out, her pressure at that time was in the 70s. I don't see any orthostatics documented, we will ask the nursing staff on the cardiac unit to obtain orthostatics. Patient is also undergoing COVID 19 testing, and those results remain pending. She's complaining today of some abdominal discomfort. She's had no syncopal or near syncopal episodes since she was transferred here to the cardiac unit, the reason the patient was transferred is because of the Covid testing. Hemodynamically she stable, blood pressure in the 120s over 80s, heart rate 90s low 100. White blood cell count 11.4, hemoglobin 16.5, platelet count 160. Sodium 136, potassium 3.4, chloride 100, CO2 29, BUN 18, creatinine 0.9. Patient's potassium and magnesium have both been replaced this morning. She continues at this time to be on IV Lasix twice a day. Patient's most recent e chocardiogram with Doppler study was performed in January 2019 which revealed an ejection fraction of 50%, global LV hypokinesis with moderate dilated left atrium and right atrium, moderate to severe mitral regurgitation, mildly calcific aortic valve. We will repeat an echo on this admission as well. Objective - Vital Signs Vital signs: Vital Signs Temp 97.7 F 06/15/19 08:36 Pulse 100 06/15/19 08:36 Resp 24 06/15/19 08:36 BP 123/84 03/27/20 08:36 Pulse Ox 92 L 06/15/19 08:36 Intake & Output 06/14/19 06/15/19 06/15/19 18:59 06:59 18:59 Intake Total 120 250 Output Total 251 850 400 Balance -131 -850 -150 Weight 64.41 kg Intake: IV 250 Magnesium Sulfate-D5w Pmx 100 1 gm In Dextrose/Water 1 100ml.bag @ 100 mls/hr IVPB Q1H ERICA Rx#: [id number] cefTRIAXone 1 gm In 50 Sodium Chloride 0.9% 50 ml @ 100 mls/hr IVPB Q24HR ERICA Rx#:[id number] metroNIDAZOLE-NS PMX 500 100 mg In Saline 1 100ml.bag @ 100 mls/hr IVPB Q8HR ERICA Rx#:[id number] Oral 120 Output: Urine 251 850 400 Other: # Voids 1 1 # Bowel Movements 1 - Exam This is a pleasant 83-year-old female in no acute distress at the time of my examination HEENT: Head is normocephalic. Pupils are equal, round. Sclerae anicteric. Mucous membranes of the mouth are moist. No JVD. No carotid bruit. CHEST EXAMINATION: Bibasilar course rales. No wheezes or rhonchi. No chest wall tenderness is noted on palpation or with deep breathing. HEART EXAMINATION: Irregular rate and rhythm. S1, S2 heard. Systolic ejection murmur at the apex, no gallops or rub. ABDOMEN: Soft, nontender. Positive bowel sounds. EXTREMITIES: 2+ peripheral pulses, no lower extremity edema and no calf tenderness. NEUROLOGIC EXAMINATION: Patient is awake, alert and oriented x3. - Labs CBC & Chem 7: 06/15/19 06:27 06/15/19 06:27 Labs: Abnormal Lab Results - Last 24 Hours (Table) 06/15/19 06/15/19 Range/Units 06:27 06:27 WBC 11.4 H (3.8-10.6) k/uL RBC 5.84 H (3.80-5.40) m/uL Hgb 16.5 H (11.4-16.0) gm/dL Hct 52.9 H (34.0-46.0) % Sodium 136 L (137-145) mmol/L Potassium 3.4 L (3.5-5.1) mmol/L BUN 18 H (7-17) mg/dL Calcium 7.2 L (8.4-10.2) mg/dL Total Protein 4.6 L (6.3-8.2) g/dL Albumin 2.1 L (3.5-5.0) g/dL Microbiology - Last 24 Hours (Table) 06/14/19 10:21 Urine Culture - Final Urine,Voided Assessment and Plan Plan: ASSESSMENT and plan #1 Acute on chronic diastolic heart failure, we will repeat an echocardiogram with Doppler study, patient's most recent echo was in January. #2 Syncope, likely related to orthostatic changes, we will have the nurse check orthostatic heart rate and blood pressure every shift. #3 Lactic acidosis #4 Colitis, with persistent abdominal discomfort #5 Chronic persistent atrial fibrillation on retirement anti-coagulation. #6 History of embolic CVA Plan We'll repeat an echocardiogram with Doppler study, we will also request orthostatic heart rate and blood pressure to be performed every shift. We will have the patient sit device interrogated if this has not yet been done, continue current dose of IV Lasix. Await Covid 19 results. DNP note has been reviewed, I agree with a documented findings and plan of care. Patient was seen and examined.
[2019-06-15] MEDS: HYDROmorphone 1 MG/ML 1 ML SYRINGE IVP PRN (13:32)
--- NOTE | 2019-06-15 14:25 | PN ---
PROGRESS NOTE DATE OF SERVICE: 06/15/2019 Patient is an 83-year-old pleasant white female admitted to the hospital with severe lower abdominal pain and some diarrhea for the last 2-3 days duration. At the time of admission the hospital, she did have a CT scan that showed some thickening of the colon with diffuse mesenteric edema consistent with colitis and she was started on empiric antibiotics with Flagyl and Rocephin. This morning, she still complains of abdominal discomfort. She has about 2 bowel movements yesterday. She reports no nausea. She does complain of nausea but no emesis. No rectal bleeding or melena. At this time. Hemoglobin test is still pending. Stool for C difficile toxin is unremarkable studies for C difficile toxin is still pending. On further questioning, patient stated that she had a colonoscopy about 3-4 years ago that was unremarkable. PHYSICAL EXAMINATION: She appears comfortable no apparent distress. VITAL SIGNS: Stable. Blood pressure is 123/84, pulse rate 100. temperature 97.7. HEENT: Examination unremarkable. Conjunctivae pink. Sclerae nonicteric. Oral cavity no lesions. NECK: No JVD. ABDOMEN: Chest was clear to auscultation. HEART: Regular rate and rhythm. ABDOMEN: Soft. There was mild tenderness diffusely in all of the abdomen, mostly in the left lower quadrant area and in the suprapubic area as well as in the right lower quadrant area extremities no pedal edema skin no rashes neuro she is alert, oriented to name and place, not to time. On physical examination study lab from today WBC 11.4, hemoglobin 16.5, platelets 160 1000. BUN is 118, creatinine 0.92, sodium 136, potassium 3.4. IMPRESSION: 1. Full for the pain. lower abdominal pain with diarrhea for the last [address] scan showing some uncomplicated acute colitis. Patient on empiric Flagyl and Rocephin and continues to remain symptomatic. Last colonoscopy about 3-4 years about 2-3 years ago was normal according to the patient. No records available. 2. Urinary tract infection, on antibiotics. 3. Syncopal episode secondary to hypertension, which has resolved. 4. Atrial fibrillation on Eliquis. 5. History of hypertension and hyperlipidemia. 6. Severe GERD. Recent upper endoscopy for acute upper GI bleed number a week ago showed LA grade C reflux esophagitis. Presently remains on Protonix 40 mg twice daily. RECOMMENDATIONS: 1. Continue with broad-spectrum antibiotics. 2. Await stool studies for C difficile toxin. 3. Continue with Protonix 40 mg twice daily. 4. Encouraged small frequent meals. 5. If she continues to remain symptomatic, we will consider colonoscopy during this hospitalization once the colon results are available. The plan was discussed with the patient, but at this time she refuses to have a colonoscopy. However, I will continue to follow her closely. Thank you for this consultation. GABBIE / JOSE: [id number] /
[2019-06-15] MEDS: PRAVASTATIN SODIUM 40 MG TAB PO SCH (15:14)
[2019-06-16] MEDS: metroNIDAZOLE-NS PMX 500 MG in SALINE 1 100ML.BAG IVPB SCH ×3 (00:34→16:17)
[2019-06-16] MEDS: LEVOTHYROXINE 50 MCG TAB PO SCH (05:19)
[2019-06-16] MEDS: APIXABAN 2.5 MG TABLET PO SCH ×2 (09:40→23:03)
[2019-06-16] MEDS: FUROSEMIDE 10 MG/ML 4 ML VIAL IV SCH ×3 (09:40→23:03)
[2019-06-16] MEDS: METOPROLOL SUCCINATE (ER) 100 MG TAB.ER.24H PO SCH (09:40)
[2019-06-16] MEDS: PANTOPRAZOLE 40 MG/10 ML VIAL IVP SCH ×2 (09:41→23:02)
--- NOTE | 2019-06-16 10:24 | PN ---
PROGRESS NOTE DATE OF SERVICE: 06/16/2019 Patient is an 83-year-old pleasant white female admitted to hospital with diffuse abdominal pain and some diarrhea. CAT scan showed mild nonspecific colitis. Presently on broad-spectrum antibiotics with Flagyl and Rocephin and the patient states that she is feeling much better. She has no further episodes of nausea, vomiting, abdominal pain has significantly improved. No diarrhea. She still complains of extreme fatigue and tiredness. COVID is still pending. PHYSICAL EXAMINATION: Appears comfortable. Blood pressure 104/71, pulse rate 111, temperature 99.4. HEENT: Examination unremarkable. Conjunctivae pink. Sclerae nonicteric. Oral cavity no lesions. NECK: No JVD or lymph node enlargement. CHEST: Clear to auscultation. HEART: Regular rate and rhythm. ABDOMEN: Soft. Bowel sounds are positive. No organomegaly. There was mild tenderness in the suprapubic area. Rest of the abdomen was benign. EXTREMITIES: No pedal edema. SKIN: No rashes. NEUROLOGIC: Alert and oriented x3. No focal deficits. LABS: WBC 11.4, hemoglobin 16.5, platelets normal. Basic metabolic panel showed sodium of 136, potassium 3.4. The rest of the labs are within normal limits. C diff in the stool is negative: COVID pending. IMPRESSION: 1. Lower abdominal pain/diarrhea, possible acute colitis, most likely infectious etiology. Clostridium difficile is negative, on empiric antibiotics and her symptoms are gradually improving. Last colonoscopy was about 3-4 years ago and according to the patient was within normal limits. 2. Mild cough: COVID pending, patient improving. 3. Mild leukocytosis. 4. Gastroesophageal reflux disease. She was on Protonix 40 mg q.12 hours. 5. Atrial fibrillation on Eliquis. RECOMMENDATIONS: 1. Continue with broad-spectrum antibiotics. 2. Advance diet as tolerated. 3. Increase ambulation. 4. Await COVID results. 5. Will consider colonoscopy based on her overall medical condition. Thank you for this consultation. MMODL / IJN: [id number] /
[2019-06-16] MEDS: HYDROmorphone 1 MG/ML 1 ML SYRINGE IVP PRN (10:47)
[2019-06-16] MEDS ORDERED: IPRATROPIUM-ALBUTEROL 3 ML NEB INHALATION PRN (10:57)
--- NOTE | 2019-06-16 10:57 | ECHOF ---
Referral Reason:chf MEASUREMENTS -------- HEIGHT: 172.7 cm WEIGHT: 64.4 kg BP: IVSd: 0.8 cm (0.6 - 1.1) LVIDd: 3.6 cm (3.9 - 5.3) LVPWd: 0.9 cm (0.6 - 1.1) IVSs: 1.3 cm LVIDs: 1.6 cm LVPWs: 1.2 cm LAESV Index (A-L): 40.23 ml/m Ao Diam: 3.7 cm (2.0 - 3.7) AV Cusp: 1.4 cm (1.5 - 2.6) LA Diam: 4.2 cm (2.7 - 3.8) MV EXCURSION: 18.547 mm (> 18.000) MV EF SLOPE: 118 mm/s (70 - 150) EPSS: 1.1 cm RAP: 5.00 mmHg RVSP: 32.53 mmHg FINDINGS -------- Atrial fibrillation. This was a technically adequate study. The left ventricular size is normal. Left ventricular wall thickness is normal. Overall left vent ricular systolic function is low-normal with, an EF between 50 - 55 %. Left ventricular fillimg pre ssure cannot be estimated due to Atrial fibrillation. The right ventricle is normal in size. LA is severely dilated >40 ml/m2 The right atrial size is normal. The aortic valve is trileaflet and appears structurally normal. The mitral valve is normal. The mitral valve leaflets are mildly thickened. [id number] mi tral regurgitation is present. The tricuspid valve appears structurally normal. Mild tricuspid regurgitation present. Right vent ricular systolic pressure is normal at < 35 mmHg. Trace/mild (physiologic) pulmonic regurgitation. The aortic root size is normal. Normal inferior vena cava with normal inspiratory collapse consistent with estimated right atrial pre ssure of 5 mmHg. Large Pleural Effusion. CONCLUSIONS -------- 1. Atrial fibrillation. 2. This was a technically adequate study. 3. The left ventricular size is normal. 4. Left ventricular wall thickness is normal. 5. Overall left ventricular systolic function is low-normal with, an EF between 50 - 55 %. 6. Left ventricular fillimg pressure cannot be estimated due to Atrial fibrillation. 7. The right ventricle is normal in size. 8. LA is severely dilated >40 ml/m2 9. The right atrial size is normal. 10. The aortic valve is trileaflet and appears structurally normal. 11. The mitral valve is normal. 12. The mitral valve leaflets are mildly thickened. 13. Kutgkoyp-[id number] mitral regurgitation is present. 14. The tricuspid valve appears structurally normal. 15. Mild tricuspid regurgitation present. 16. Right ventricular systolic pressure is normal at < 35 mmHg. 17. Trace/mild (physiologic) pulmonic regurgitation. 18. The aortic root size is normal. 19. Normal inferior vena cava with normal inspiratory collapse consistent with estimated right atrial pressure of 5 mmHg. 20. Large Pleural Effusion. DOOR LINER: Hamida Grady RDCS
[2019-06-16] MEDS: IPRATROPIUM-ALBUTEROL 3 ML NEB INHALATION SCH ×3 (11:17→20:39)
[2019-06-16] MEDS ORDERED: Potassium Replacement Protocol 1 EACH MISC MISCELLANE PRN (11:30)
--- NOTE | 2019-06-16 11:59 | P.PN ---
Subjective Progress Note Date: 06/16/19 This is a pleasant 83-year-old patient of Dr. Dorado. Past medical history significant for paroxysmal atrial fibrillation, coronary artery disease, chronic systolic heart failure, CVA, hyperlipidemia, hypertension, osteoarthritis, hypothyroidism, DVT. History of AICD implantation in 2010. Denies any history of diabetes. Has never smoked. Patient was recently hospitalized and discharged on June 05 for acute GI bleed abdominal pain secondary to severe erosive esophagitis, gastritis and possible colitis. Pathology supports the identified diagnoses, no malignancy noted. states that patient is having same symptoms as before with abdominal pain. Patient left here on Tuesday and was doing okay on starting on Tuesday she was developing abdominal pain. She dropped a urine specimen and Dr. Liu's office and was started on Macrodantin, currently has taken 4 tablets total. Patient's states that she was in the driveway getting ready to go to a follow-up appointment with Dr. Pelaez and she passed out in the driveway. There is concern patient is still having black tarry stools and is also on eliquis. She complains of generalized weakness, no chest pain or shortness of breath. Patient came into [facility] emergency center for evaluation. She was afebrile, blood pressure 87/74, heart rate 104, pulse ox 94%. Hemoglobin 17, platelet count 143, WBC 10.6. Sodium 134, potassium 4.1, chloride 99, CO2 26, BUN 18, creatinine 0.96, calcium 7.5, albumin 2.4, lipase 200, liver function tests within normal limits. Lactic acid 2.9, troponin negative. Stool for occult blood negative. Urinalysis dark brown, cloudy, blood small, leukoesterase moderate, bacteria rare. EKG atrial fibrillation. CAT scan of the abdomen and pelvis revealed acute uncomplicated colitis. There is limitation for evaluation of pericolonic fat stranding given the new diffuse mesenteric edema and new small volume ascites. Anasarca also progressed from prior. Patient is status post 2 L of IV fluids in current blood pressure 121/78. Patient admitted to the cardiac stepdown unit but will be transferred to [facility] with telemetry. Orthostatics ordered and patient started on Rocephin and Flagyl. 06/13: Patient is afebrile, heart rate 83, blood pressure 108/76, pulse ox 97% on 3 L nasal cannula. engine monitor atrial fibrillation. Patient had additional near syncopal episode while going to the bathroom. Blood pressure was systolic of 70. Repeat lactic acid 2.0. Patient had increasing cough and rales this morning at 1 dose of IV Lasix 40 mg IV push was ordered by cardiology. Chest x- ray revealed cardiomegaly with moderate left lower lobe infiltrate and/or effusion. Minimal right lower lobe infiltrate and effusion. By the time of our evaluation, patient's renal status is stable. Patient apparently has had coughing since she left the hospital on her previous admission. This was not revealed during evaluation yesterday. We will place the patient in isolation and start influenza testing followed by COVID-19 testing. 06/14: COVID-19 testing result remains pending. She has continued to complain of abdominal pain. No diarrhea but having loose stools. Stool has not been send for C diff toxin. Discussed case with Dr. Bergman and she will consider doing colonoscopy if patient continues to have abdominal pain and Covid 19 testing is negative. We will add and Dilaudid as needed for pain. Patient has had no further syncopal episodes. Patient is afebrile, heart rate 100, blood pressure 123/84, pulse ox 92% on 4 L nasal cannula. Repeat lab work reveals WBC 11.4, hemoglobin 16.5, platelet count 160. Sodium 136, potassium 3.4, chloride 100, CO2 29, BUN 18, creatinine 0.92. Potassium and magnesium replacement has been ordered by cardiology. Patient remains on Lasix 40 mg IV every 12 hours. PT and OT are recommending subacute rehab. Family had identified choice is [facility]. We will make sure social work is following. COVID-19 testing returns positive, patient will need to negative testing 24 hours apart in order to go to rehab. 06/15: Patient the is laying down in bed she continues to complain of pain in the abdomen in the epigastric area along the lower abdomen, she continues to require quite a bit of oxygen she is at 5 L nasal cannula this point her oxygen saturation 91-90%, she denies any coughing or any fever or chills, she just doesn't look good, Covid 19 results still pending at the time of dictation, she is being seen by pulmonary and cardiology as well was started the patient on nebulized treatment in the form of DuoNeb 3 mg nebulization 4 times every day and as needed every 4 hours, patient will be monitored very closely for any changes in in her situation. Lasix was increased by cardiology to 40 mg every 8 hours, we'll consult pulmonary medicine Dr. RESHMA Preston. Objective - Vital Signs Vital signs: Vital Signs Temp 99.4 F 06/16/19 07:45 Pulse 111 H 06/16/19 07:45 Resp 20 06/16/19 07:45 BP 104/71 06/16/19 07:45 Pulse Ox 88 L 06/16/19 07:45 Intake & Output 06/15/19 06/16/19 06/16/19 18:59 06:59 18:59 Intake Total 1050 240 Output Total 400 950 Balance 650 -710 Weight 59 kg Intake: IV 450 Magnesium Sulfate-D5w Pmx 200 1 gm In Dextrose/Water 1 100ml.bag @ 100 mls/hr IVPB Q1H ERICA Rx#: [id number] cefTRIAXone 1 gm In 50 Sodium Chloride 0.9% 50 ml @ 100 mls/hr IVPB Q24HR ERICA Rx#:[id number] metroNIDAZOLE-NS PMX 500 200 mg In Saline 1 100ml.bag @ 100 mls/hr IVPB Q8HR ERICA Rx#:[id number] Oral 600 240 Output: Urine 400 950 Other: Voiding Method Incontinent # Voids 1 # Bowel Movements 1 - Exam - Exam Review of Systems Constitutional: Reports fatigue, Reports weakness, Denies chills, Denies fever Ears, nose, mouth and throat: Reports vertigo, Denies dysphagia, Denies nasal congestion, Denies nasal discharge Cardiovascular: Reports lightheadedness, Reports syncope, Denies chest pain, Denies edema, Denies shortness of breath Respiratory: Denies cough, Denies cough with sputum, Denies dyspnea, Denies excessive sputum, Denies hemoptysis, Denies home oxygen, Denies respiratory infections, Denies wheezing Gastrointestinal: Reports melena, reports abdominal pain, Denies diarrhea, Denies nausea, Denies vomiting Genitourinary: Denies dysuria, Denies hematuria Menstruation: Reports postmenopausal Musculoskeletal: Reports muscle weakness, Denies frequent falls, Denies gait dysfunction, Denies myalgias Integumentary: Denies pruritus, Denies rash, Denies wounds Neurological: Denies change in mentation, Denies change in speech, Denies numbness, Denies weakness Psychiatric: Denies anxiety, Denies depression Endocrine: Denies fatigue, Denies weight change Physical examination Gen: This is an 82-year-old female. Patient is resting in bed and appears to be comfortable. HEENT: Head is atraumatic, normocephalic. Pupils equal, round. Sclerae is anicteric. NECK: Supple. No JVD. No lymphadenopathy. No thyromegaly. No carotid bruit. LUNGS: Bilateral rales. No intercostal retractions. HEART: Irregularly irregular rate and rhythm. No murmur. ABDOMEN: Soft. Bowel sounds are present. No masses. Right lower abdominal ten derness. No CVA tenderness EXTREMITIES: No pedal edema. No calf tenderness. Dorsalis pedis +2 estrada aterally. NEUROLOGICAL: Patient is awake, alert and oriented x3. Cranial - Labs CBC & Chem 7: 06/15/19 06:27 06/15/19 06:27 Labs: Microbiology - Last 24 Hours (Table) 06/14/19 10:21 Urine Culture - Final Urine,Voided Assessment and Plan Assessment: Assessment and Plan Plan: 1. Acute syncopal episode most likely due to hypotension and dehydration. Patient is status post multiple fluid boluses. Home dose of Toprol-XL resumed at 100 versus 150 mg daily. Orthostatic vital signs. Cardiology consult appreciated. Trivietronic device interrogated. IV fluids discontinued. 2. Acute urinary tract infection. Patient started on ceftriaxone. Urine culture ordered. 3. Acute colitis. Patient started on Flagyl 500 mg IV piggyback every 8 hours. Consult with GI appreciated. Patient continues to have pain, may consider colonoscopy if Covid 19 testing is negative. 4. Lactic acidosis secondary to colitis and UTI. 5. Acute on chronic diastolic heart failure. Patient received an additional dose of Lasix 40 mg this morning. 6. Acute hypoxemic respiratory failure likely related to combination of acute systolic heart failure as well as bibasilar pneumonia. Continue the patient on Lasix 40 mg IV push every 8 hours, start the patient on DuoNeb 3 mg nebulization 4 times every day, continue oxygen support, pulmonary consultation Dr. RESHMA Preston. 7. Recent hospitalization for GI bleed status post EGD with Dr. Bergman that sh owed evidence of gastric stapling surgery noted with some gastritis at the site of the gastric stapling. Mild gastritis. Severe erosive esophagitis involving the entire esophagus with mucosal erythema friability and some exudates consistent with LA grade C reflux esophagitis. Protonix 40 mg IV push twice daily. 8. Atrial fibrillation, paroxysmal. Continue eliquis and Toprol-XL at reduced dose 9. Hypertension. Home dose of Metoprolol 150 mg daily. Continue Toprol-XL 100 mg daily. 10. Hyperlipidemia. Continue pravastatin 40 mg by mouth daily. 11. Hypothyroidism. Continue levothyroxine 50 MCG's by mouth daily 12. History of CVA, stable 13. Acute on chronic systolic heart failure. Continue Lasix 40 mg IV push every 8 hours, metoprolol 100 mg orally once every day. 14. Coronary artery disease. Continue patient on metoprolol 100 mg orally once every day. 15. DVT prophylaxis. Continue Eliquis 2.5 mg orally twice every day per 16. GI prophylaxis. Continue Protonix. 17. Prognosis is guarded. 18. Full code. 19. Covid 19 still pending.
--- NOTE | 2019-06-16 12:07 | PN ---
PROGRESS NOTE Clarisa Baum is an 83-year-old lady with history of nonischemic cardiomyopathy status post AICD, persistent atrial fibrillation, dyslipidemia, that was initially admitted with syncope. She was hypotensive and was resuscitated. She is also undergoing COVID testing at the moment and results are pending. Patient complains of abdominal discomfort. Had a GI evaluation. An echocardiogram shows an ejection fraction of 50%- 55%. Current medications include Eliquis 2.5 b.i.d., Lasix 40 q.12, Toprol-XL 100 mg daily, and Pravachol. Patient remains somewhat hypoxic with an O2 saturation of 88% on 4 L. Her chest x-ray on admission revealed cardiomegaly with pleural effusion. LABS: Show a hemoglobin of 16.5. BUN is 18, creatinine is 0.9. ASSESSMENT: 1. Shortness of breath, probably due to a combination of problems including the possibility of COVID infection, congestive heart failure exacerbations. 2. History of atrial fibrillation. 3. History of coronary artery disease. PLAN: I will continue the IV Lasix, treat her with nebulizers. If necessary, we will increase the dose of Lasix to 40 q.8. MMODL / IJN: [id number] /
[2019-06-16] MEDS: POTASSIUM CHLORIDE ER 20 MEQ TAB.ER PO SCH ×2 (16:16→17:35)
[2019-06-16] MEDS: PRAVASTATIN SODIUM 40 MG TAB PO SCH (16:17)
[2019-06-16] MEDS: ACETAMINOPHEN TAB 325 MG TAB PO PRN (23:03)
[2019-06-17] MEDS: metroNIDAZOLE-NS PMX 500 MG in SALINE 1 100ML.BAG IVPB SCH ×2 (00:36→09:09)
[2019-06-17] MEDS: LEVOTHYROXINE 50 MCG TAB PO SCH (06:57)
[2019-06-17] MEDS: FUROSEMIDE 10 MG/ML 4 ML VIAL IV SCH ×2 (06:57→14:45)
[2019-06-17 07:07] LABS: Basophils % (A) 0 %; Eosinophils % (A) 0 %; HCT 52.6 % (34.0-46.0); HGB 16.1 gm/dL (11.4-16.0); Hypochromasia Slight; Lymphocytes # (A) 1.3 k/uL (1.0-4.8); Lymphocytes % (A) 9 %; MCHC 30.7 g/dL (31.0-37.0); MCV 91.3 fL (80.0-100.0); Mean Platelet Volume 9.1; Monocytes % (A) 7 %; Neutrophils # (A) 11.6 k/uL (1.3-7.7); Neutrophils % (A) 82 %; Platelet Count 148 k/uL (150-450); RBC 5.76 m/uL (3.80-5.40); RDW 15.5 % (11.5-15.5)
[2019-06-17 07:24] LABS: Calcium 7.6 mg/dL (8.4-10.2); Magnesium 1.7 mg/dL (1.6-2.3); Potassium 4.1 mmol/L (3.5-5.1); Total Bilirubin 0.5 mg/dL (0.2-1.3); Total Protein 4.4 g/dL (6.3-8.2)
[2019-06-17] MEDS: IPRATROPIUM-ALBUTEROL 3 ML NEB INHALATION SCH ×3 (07:41→15:15)
[2019-06-17] MEDS ORDERED: POTASSIUM CHLORIDE ER 20 MEQ TAB.ER PO SCH (09:00)
[2019-06-17 09:03] VITALS: TEMP 97.7
[2019-06-17] MEDS: PANTOPRAZOLE 40 MG/10 ML VIAL IVP SCH (09:10)
[2019-06-17] MEDS: APIXABAN 2.5 MG TABLET PO SCH (09:11)
[2019-06-17] MEDS: METOPROLOL SUCCINATE (ER) 100 MG TAB.ER.24H PO SCH (09:12)
--- NOTE | 2019-06-17 09:38 | XR ---
EXAMINATION TYPE: XR chest 1V portable DATE OF EXAM: 06/17/2019 HISTORY: low sats . REFERENCE: Previous study dated 06/14/2019. FINDINGS: A bipolar pacemaker place on the left. There is elevation of the left hemidiaphragm. There is masslike density present adjacent to the left heart border as well as in the right lower lobe. There is also patchy airspace disease elsewhere with in the lungs. I suspect bilateral effusions. The heart appears enlarged. IMPRESSION: 1. WORSENING BILATERAL INFILTRATES. UNDERLYING MASS WOULD NEED TO BE EXCLUDED AND FOLLOW-UP TO RESOLU TION IS SUGGESTED. 2. THE OVERALL APPEARANCE HAS WORSENED SLIGHTLY FROM THE PREVIOUS STUDY.
--- NOTE | 2019-06-17 12:41 | P.PN ---
Subjective Progress Note Date: 06/17/19 This is a pleasant 83-year-old patient of Dr. Dorado. Past medical history significant for paroxysmal atrial fibrillation, coronary artery disease, chronic systolic heart failure, CVA, hyperlipidemia, hypertension, osteoarthritis, hypothyroidism, DVT. History of AICD implantation in 2010. Denies any history of diabetes. Has never smoked. Patient was recently hospitalized and discharged on June 05 for acute GI bleed abdominal pain secondary to severe erosive esophagitis, gastritis and possible colitis. Pathology supports the identified diagnoses, no malignancy noted. states that patient is having same symptoms as before with abdominal pain. Patient left here on Tuesday and was doing okay on starting on Tuesday she was developing abdominal pain. She dropped a urine specimen and Dr. Liu's office and was started on Macrodantin, currently has taken 4 tablets total. Patient's states that she was in the driveway getting ready to go to a follow-up appointment with Dr. Pelaez and she passed out in the driveway. There is concern patient is still having black tarry stools and is also on eliquis. She complains of generalized weakness, no chest pain or shortness of breath. Patient came into [facility] emergency center for evaluation. She was afebrile, blood pressure 87/74, heart rate 104, pulse ox 94%. Hemoglobin 17, platelet count 143, WBC 10.6. Sodium 134, potassium 4.1, chloride 99, CO2 26, BUN 18, creatinine 0.96, calcium 7.5, albumin 2.4, lipase 200, liver function tests within normal limits. Lactic acid 2.9, troponin negative. Stool for occult blood negative. Urinalysis dark brown, cloudy, blood small, leukoesterase moderate, bacteria rare. EKG atrial fibrillation. CAT scan of the abdomen and pelvis revealed acute uncomplicated colitis. There is limitation for evaluation of pericolonic fat stranding given the new diffuse mesenteric edema and new small volume ascites. Anasarca also progressed from prior. Patient is status post 2 L of IV fluids in current blood pressure 121/78. Patient admitted to the cardiac stepdown unit but will be transferred to [facility] with telemetry. Orthostatics ordered and patient started on Rocephin and Flagyl. 06/13: Patient is afebrile, heart rate 83, blood pressure 108/76, pulse ox 97% on 3 L nasal cannula. phototypesetting equipment monitor atrial fibrillation. Patient had additional near syncopal episode while going to the bathroom. Blood pressure was systolic of 70. Repeat lactic acid 2.0. Patient had increasing cough and rales this morning at 1 dose of IV Lasix 40 mg IV push was ordered by cardiology. Chest x- ray revealed cardiomegaly with moderate left lower lobe infiltrate and/or effusion. Minimal right lower lobe infiltrate and effusion. By the time of our evaluation, patient's renal status is stable. Patient apparently has had coughing since she left the hospital on her previous admission. This was not revealed during evaluation yesterday. We will place the patient in isolation and start influenza testing followed by COVID-19 testing. 06/14: COVID-19 testing result remains pending. She has continued to complain of abdominal pain. No diarrhea but having loose stools. Stool has not been send for C diff toxin. Discussed case with Dr. Bergman and she will consider doing colonoscopy if patient continues to have abdominal pain and Covid 19 testing is negative. We will add and Dilaudid as needed for pain. Patient has had no further syncopal episodes. Patient is afebrile, heart rate 100, blood pressure 123/84, pulse ox 92% on 4 L nasal cannula. Repeat lab work reveals WBC 11.4, hemoglobin 16.5, platelet count 160. Sodium 136, potassium 3.4, chloride 100, CO2 29, BUN 18, creatinine 0.92. Potassium and magnesium replacement has been ordered by cardiology. Patient remains on Lasix 40 mg IV every 12 hours. PT and OT are recommending subacute rehab. Family had identified choice is [facility]. We will make sure social work is following. COVID-19 testing returns positive, patient will need to negative testing 24 hours apart in order to go to rehab. 06/15: Patient the is laying down in bed she continues to complain of pain in the abdomen in the epigastric area along the lower abdomen, she continues to require quite a bit of oxygen she is at 5 L nasal cannula this point her oxygen saturation 91-90%, she denies any coughing or any fever or chills, she just doesn't look good, Covid 19 results still pending at the time of dictation, she is being seen by pulmonary and cardiology as well was started the patient on nebulized treatment in the form of DuoNeb 3 mg nebulization 4 times every day and as needed every 4 hours, patient will be monitored very closely for any changes in in her situation. Lasix was increased by cardiology to 40 mg every 8 hours, we'll consult pulmonary medicine Dr. RESHMA Preston. 06/16: Patient is sitting up in bed she is extremely short of breath she was put on nonrebreather 100% I had a long conversation with her and she is quite awake and alert at this time and she did not want to be intubated or placed on any Bi PAP at this point she is a matter fact is ready she wanted to be comfortable and discussed with her hospice consult and she was in agreement family will be coming to see the patient one time after she would be able to the hospice, initially we had previous consultation for pulmonary medicine for Dr. Grider says Dr. RESHMA Preston is not coming to this hospital anymore to get some further input regarding her respiratory failure. Objective - Vital Signs Vital signs: Vital Signs Temp 97.7 F 06/17/19 07:50 Pulse 74 06/17/19 07:50 Resp 20 06/17/19 07:50 BP 91/63 06/17/19 07:50 Pulse Ox 90 L 06/17/19 07:50 Intake & Output 06/16/19 06/17/19 06/17/19 18:59 06:59 18:59 Intake Total 1130 Output Total 1200 651 Balance -70 -651 Intake: IV 200 cefTRIAXone 1 gm In 100 Sodium Chloride 0.9% 50 ml @ 100 mls/hr IVPB Q24HR ERICA Rx#:[id number] metroNIDAZOLE-NS PMX 500 100 mg In Saline 1 100ml.bag @ 100 mls/hr IVPB Q8HR ERICA Rx#:[id number] Intake, IV Titration 200 Amount cefTRIAXone 1 gm In 100 Sodium Chloride 0.9% 50 ml @ 100 mls/hr IVPB Q24HR ERICA Rx#:[id number] metroNIDAZOLE-NS PMX 500 100 mg In Saline 1 100ml.bag @ 100 mls/hr IVPB Q8HR ERICA Rx#:[id number] Oral 730 Output: Urine 1200 650 Stool 1 Other: Voiding Method Incontinent Incontinent Incontinent # Emeses 2 - Exam - Exam Review of Systems Constitutional: Reports fatigue, Reports weakness, Denies chills, Denies fever Ears, nose, mouth and throat: Reports vertigo, Denies dysphagia, Denies nasal congestion, Denies nasal discharge Cardiovascular: Reports lightheadedness, Reports syncope, Denies chest pain, D enies edema, Denies shortness of breath Respiratory: Denies cough, Denies cough with sputum, Denies dyspnea, Denies excessive sputum, Denies hemoptysis, Denies home oxygen, Denies respiratory infections, Denies wheezing Gastrointestinal: Reports melena, reports abdominal pain, Denies diarrhea, Denies nausea, Denies vomiting Genitourinary: Denies dysuria, Denies hematuria Menstruation: Reports postmenopausal Musculoskeletal: Reports muscle weakness, Denies frequent falls, Denies gait dysfunction, Denies myalgias Integumentary: Denies pruritus, Denies rash, Denies wounds Neurological: Denies change in mentation, Denies change in speech, Denies numbness, Denies weakness Psychiatric: Denies anxiety, Denies depression Endocrine: Denies fatigue, Denies weight change Physical examination Gen: This is an 82-year-old female. Patient is resting in bed and appears to be comfortable. HEENT: Head is atraumatic, normocephalic. Pupils equal, round. Sclerae is anicteric. NECK: Supple. No JVD. No lymphadenopathy. No thyromegaly. No carotid bruit. LUNGS: Bilateral rales. No intercostal retractions. HEART: Irregularly irregular rate and rhythm. No murmur. ABDOMEN: Soft. Bowel sounds are present. No masses. Right lower abdominal tenderness. No CVA tenderness EXTREMITIES: No pedal edema. No calf tenderness. Dorsalis pedis +2 bilaterally. NEUROLOGICAL: Patient is awake, alert and oriented x3. Cranial - Labs CBC & Chem 7: 06/17/19 06:37 06/17/19 06:37 Labs: Abnormal Lab Results - Last 24 Hours (Table) 06/17/19 06/17/19 Range/Units 06:37 06:37 WBC 14.0 H (3.8-10.6) k/uL RBC 5.76 H (3.80-5.40) m/uL Hgb 16.1 H (11.4-16.0) gm/dL Hct 52.6 H (34.0-46.0) % MCHC 30.7 L (31.0-37.0) g/dL Plt Count 148 L (150-450) k/uL Neutrophils # 11.6 H (1.3-7.7) k/uL Carbon Dioxide 34 H (22-30) mmol/L BUN 21 H (7-17) mg/dL Calcium 7.6 L (8.4-10.2) mg/dL Total Protein 4.4 L (6.3-8.2) g/dL Albumin 2.0 L (3.5-5.0) g/dL Assessment and Plan Assessment: Assessment and Plan Plan: 1. Acute syncopal episode most likely due to hypotension and dehydration. Patient is status post multiple fluid boluses. Home dose of Toprol-XL resumed at 100 versus 150 mg daily. Orthostatic vital signs. Cardiology consult appreciated. [place] device interrogated. IV fluids discontinued. 2. Acute urinary tract infection. Patient started on ceftriaxone. Urine culture ordered. 3. Acute colitis. Patient started on Flagyl 500 mg IV piggyback every 8 hours. Consult with GI appreciated. Patient continues to have pain, may consider colonoscopy if Covid 19 testing is negative. 4. Lactic acidosis secondary to colitis and UTI. 5. Acute on chronic diastolic heart failure. Patient received an additional dose of Lasix 40 mg this morning. 6. Acute hypoxemic respiratory failure likely related to combination of acute systolic heart failure as well as bibasilar pneumonia. Patient was continued on Lasix 40 mg IV push every 8 hours, continue nonrebreather 100% for now. Continue DuoNeb 3 mL inhalation 4 times every day, start the patient on morphine sulfate 2 mg IV push every 4 hours, pulmonary consultation Dr. Girder. 7. Recent hospitalization for GI bleed status post EGD with Dr. Bergman that showed evidence of gastric stapling surgery noted with some gastritis at the site of the gastric stapling. Mild gastritis. Severe erosive esophagitis involving the entire esophagus with mucosal erythema friability and some exudates consistent with LA grade C reflux esophagitis. Protonix 40 mg IV push twice daily. 8. Atrial fibrillation, paroxysmal. Continue eliquis and Toprol-XL at reduced dose 9. Hypertension. Home dose of Metoprolol 150 mg daily. Continue Toprol-XL 100 mg daily. 10. Hyperlipidemia. Continue pravastatin 40 mg by mouth daily. 11. Hypothyroidism. Continue levothyroxine 50 MCG's by mouth daily 12. History of CVA, stable 13. Acute on chronic systolic heart failure. Continue Lasix 40 mg IV push every 8 hours, metoprolol 100 mg orally once every day. 14. Coronary artery disease. Continue patient on metoprolol 100 mg orally once every day. 15. DVT prophylaxis. Continue Eliquis 2.5 mg orally twice every day per 16. GI prophylaxis. Continue Protonix. 17. Prognosis is guarded. 18. DO NOT RESUSCITATE per her own wishes. 19. Covid 19 still pending. 20. Consult hospice per family and patient wishes.
[2019-06-17] MEDS: HYDROmorphone 1 MG/ML 1 ML SYRINGE IVP PRN (12:42)
[2019-06-17 14:48] VITALS: BP 80/60; RESP 16
[2019-06-17 15:05] VITALS: PULSE 98
--- NOTE | 2019-06-17 16:13 | PN ---
PROGRESS NOTE DATE OF DICTATION: 06/17/2019 The patient is an 83-year-old white female admitted to hospital with lower abdominal pain and diarrhea. Subsequently diagnosed with acute colitis on CT of the abdomen and pelvis and since then has been maintained on empiric antibiotics. Also has urinary tract infection on antibiotics. She was doing well yesterday. However, this morning, as per the nursing staff, she was complaining of severe shortness of breath and was started on 100% non-rebreather. Covid was done at the time of admission to the hospital but is still pending. She is presently being evaluated by Dr. Ford. As per the nursing staff, she wants to be a DNR. Apparently she was not complaining of any abdominal pain. No nausea, vomiting, or diarrhea. PHYSICAL EXAMINATION: Vital signs temperature 97.7, blood pressure is 91/67, pulse rate 74, pulse ox 90 percent on 100% non-rebreather. The rest of the physical examination was not done. The patient looks somewhat uncomfortable because of her underlying respiratory status. LABS: Labs done from today: WBC 14, hemoglobin 16.1, platelets 148. Basic metabolic panel is within normal limits. BUN is 21, creatinine 1.03. AST, ALT, T-bilirubin and alkaline phosphatase are normal. COVID is still pending. C difficile toxin is negative. IMPRESSION: 1. Acute worsening of pulmonary status with chest x-ray that showed bilateral infiltrates, COVID pending. Presently, on 100% non-rebreather. Remains on broad- spectrum antibiotics. 2. Acute colitis with lower abdominal pain and diarrhea, which is improving. Remains on Flagyl 500 mg q.8 hours. 3. Urinary tract infection on ceftriaxone. 4. Recent upper gastrointestinal bleed, status post EGD by me 3 weeks ago that showed severe reflux esophagitis. 5. Atrial fibrillation on Eliquis. RECOMMENDATIONS: Continue with symptomatic and supportive care. Continue with broad-spectrum antibiotics for the management of her respiratory status as per Dr. Ford. We will follow her closely. Thank you for this consultation. MMODL / JULIENN: [id number] /
--- NOTE | 2019-06-18 15:25 | P.DS ---
Providers Date of admission: 06/13/19 12:55 Expected date of discharge: 06/18/19 Attending physician: Patel Lawrence Consults: 06/13/19 13:42 Consult Physician Routine Consulting Provider: Sid Garza Consult Reason/Comments: syncope Do you want consulting provider notified?: Yes 06/13/19 13:56 Consult Physician Routine Consulting Provider: Socorro Bergman Consult Reason/Comments: colitis Do you want consulting provider notified?: Yes 06/16/19 11:54 Consult Physician Routine Consulting Provider: Angel Preston Consult Reason/Comments: Shortness of breath Do you want consulting provider notified?: Yes Primary care physician: Carney Hospital Course: This is a pleasant 83-year-old patient of Dr. Dorado. Past medical history significant for paroxysmal atrial fibrillation, coronary artery disease, chronic systolic heart failure, CVA, hyperlipidemia, hypertension, osteoarthritis, hypothyroidism, DVT. History of AICD implantation in 2010. Denies any history of diabetes. Has never smoked. Patient was recently hospitalized and discharged on June 05 for acute GI bleed abdominal pain secondary to severe erosive esophagitis, gastritis and possible colitis. Pathology supports the identified diagnoses, no malignancy noted. states that patient is having same symptoms as before with abdominal pain. Patient left here on Tuesday and was doing okay on starting on Tuesday she was developing abdominal pain. She dropped a urine specimen and Dr. Liu's office and was started on Macrodantin, currently has taken 4 tablets total. Patient's states that she was in the driveway getting ready to go to a follow-up appointment with Dr. Pelaez and she passed out in the driveway. There is concern patient is still having black tarry stools and is also on eliquis. She complains of generalized weakness, no chest pain or shortness of breath. Patient came into [facility] emergency center for evaluation. She was afebrile, blood pressure 87/74, heart rate 104, pulse ox 94%. Hemoglobin 17, platelet count 143, WBC 10.6. Sodium 134, potassium 4.1, chloride 99, CO2 26, BUN 18, creatinine 0.96, calcium 7.5, albumin 2.4, lipase 200, liver function tests within normal limits. Lactic acid 2.9, troponin negative. Stool for occult blood negative. Urinalysis dark brown, cloudy, blood small, leukoesterase moderate, bacteria rare. EKG atrial fibrillation. CAT scan of the abdomen and pelvis revealed acute uncomplicated colitis. There is limitation for evaluation of pericolonic fat stranding given the new diffuse mesenteric edema and new small volume ascites. Anasarca also progressed from prior. Patient is status post 2 L of IV fluids in current blood pressure 121/78. Patient admitted to the cardiac stepdown unit but will be transferred to [facility] with telemetry. Orthostatics ordered and patient started on Rocephin and Flagyl. 06/13: Patient is afebrile, heart rate 83, blood pressure 108/76, pulse ox 97% on 3 L nasal cannula. 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 Patient had additional near syncopal episode while going to the bathroom. Blood pressure was systolic of 70. Repeat lactic acid 2.0. Patient had increasing cough and rales this morning at 1 dose of IV Lasix 40 mg IV push was ordered by cardiology. Chest x- ray revealed cardiomegaly with moderate left lower lobe infiltrate and/or effusion. Minimal right lower lobe infiltrate and effusion. By the time of our evaluation, patient's renal status is stable. Patient apparently has had coughing since she left the hospital on her previous admission. This was not revealed during evaluation yesterday. We will place the patient in isolation and start influenza testing followed by COVID-19 testing. 06/14: COVID-19 testing result remains pending. She has continued to complain of abdominal pain. No diarrhea but having loose stools. Stool has not been send for C diff toxin. Discussed case with Dr. Bergman and she will consider doing colonoscopy if patient continues to have abdominal pain and Covid 19 testing is negative. We will add and Dilaudid as needed for pain. Patient has had no further syncopal episodes. Patient is afebrile, heart rate 100, blood pressure 123/84, pulse ox 92% on 4 L nasal cannula. Repeat lab work reveals WBC 11.4, hemoglobin 16.5, platelet count 160. Sodium 136, potassium 3.4, chloride 100, CO2 29, BUN 18, creatinine 0.92. Potassium and magnesium replacement has been ordered by cardiology. Patient remains on Lasix 40 mg IV every 12 hours. PT and OT are recommending subacute rehab. Family had identified choice is [facility]. We will make sure social work is following. COVID-19 testing returns positive, patient will need to negative testing 24 hours apart in order to go to rehab. 06/15: Patient the is laying down in bed she continues to complain of pain in the abdomen in the epigastric area along the lower abdomen, she continues to require quite a bit of oxygen she is at 5 L nasal cannula this point her oxygen saturation 91-90%, she denies any coughing or any fever or chills, she just doesn't look good, Covid 19 results still pending at the time of dictation, she is being seen by pulmonary and cardiology as well was started the patient on nebulized treatment in the form of DuoNeb 3 mg nebulization 4 times every day and as needed every 4 hours, patient will be monitored very closely for any changes in in her situation. Lasix was increased by cardiology to 40 mg every 8 hours, we'll consult pulmonary medicine Dr. RESHMA Preston. 06/16: Patient is sitting up in bed she is extremely short of breath she was put on nonrebreather 100% I had a long conversation with her and she is quite awake and alert at this time and she did not want to be intubated or placed on any BiPAP at this point she is a matter fact is ready she wanted to be comfortable and discussed with her hospice consult and she was in agreement family will be coming to see the patient one time after she would be able to the hospice, initially we had previous consultation for pulmonary medicine for Dr. Grider says Dr. RESHMA Preston is not coming to this hospital anymore to get some further input regarding her respiratory failure. 06/17: Patient developed increasing respiratory distress secondary to heart failure and was transitioned to [facility] hospice care. Patient on June 17. Please see nursing documentation for detail. Discharge diagnoses: 1. Acute syncopal episode most likely due to hypotension and dehydration. 2. Acute urinary tract infection. 3. Acute colitis. 4. Lactic acidosis secondary to colitis and UTI. 5. Acute on chronic diastolic heart failure. 6. Acute hypoxemic respiratory failure likely related to combination of acute systolic heart failure as well as bibasilar pneumonia. 7. Recent hospitalization for GI bleed status post EGD with Dr. Bergman that showed evidence of gastric stapling surgery noted with some gastritis at the site of the gastric stapling. Mild gastritis. Severe erosive esophagitis involving the entire esophagus with mucosal erythema friability and some exudates consistent with LA grade C reflux esophagitis. 8. Atrial fibrillation, paroxysmal. 9. Hypertension. 10. Hyperlipidemia. 11. Hypothyroidism. 12. History of CVA, stable 13. Acute on chronic systolic heart failure. 14. Coronary artery disease. 15. Covid 19 has been ruled out. Impression and plan of care have been directed as dictated by the signing physician. Ginny Morillo nurse practitioner acting as scribe for signing physician. Patient Condition at Discharge: Undetermined Plan - Discharge Summary New Discharge Prescriptions: No Action Metoprolol Succinate (ER) [Toprol XL] 50 mg PO QAM Levothyroxine Sodium [Synthroid] 50 mcg PO DAILY Metoprolol Succinate (ER) [Toprol XL] 100 mg PO DAILY LORazepam [Ativan] 0.5 mg PO DAILY PRN PRN Reason: Anxiety Furosemide [Lasix] 20 mg PO Q48H Apixaban [Eliquis] 2.5 mg PO BID Pravastatin Sodium [Pravachol] 40 mg PO DAILY@1500 Nitrofurantoin Monohyd/M-Cryst [Macrobid] 100 mg PO Q12HR Discharge Medication List Metoprolol Succinate (ER) [Toprol XL] 50 mg PO QAM 11/04/15 [History] Apixaban [Eliquis] 2.5 mg PO BID 06/02/19 [History] Furosemide [Lasix] 20 mg PO Q48H 06/02/19 [History] LORazepam [Ativan] 0.5 mg PO DAILY PRN 06/02/19 [History] Levothyroxine Sodium [Synthroid] 50 mcg PO DAILY 06/02/19 [History] Metoprolol Succinate (ER) [Toprol XL] 100 mg PO DAILY 06/02/19 [History] Pravastatin Sodium [Pravachol] 40 mg PO DAILY@1500 06/02/19 [History] Nitrofurantoin Monohyd/M-Cryst [Macrobid] 100 mg PO Q12HR 06/13/19 [History] Follow up Appointment(s)/Referral(s): Tray Liu DO [Primary Care Provider] - 1-2 days Discharge Disposition: DISCH TO HOSPICE MED FACILTY - Preliminary Cause of Preliminary Cause of : Acute on chronic heart failure
--- NOTE | 2019-06-27 17:21 | CDI ---
Documentation Clarification Form Date: 06/27/2019 04:10:58 PM From: Martina Yao RN, CCDS Admit Date: 06/13/2019 12:55:00 PM Patient Name: Clarisa Baum Visit Number: [id number] Discharge Date: 06/17/2019 03:57:00 PM ATTENTION: The Clinical Documentation Specialists (CDI) and [facility] Coding Staff appreciate your assistance in clarifying documentation. Please respond to the clarification below the line at the bottom and electronically sign. The CDI & [facility] Coding staff will review the response and follow-up if needed. Please note: Queries are made part of the Legal Health Record. If you have any questions, please contact the author of this message via ITS. Dr. Santy Ford Your patient has the documented diagnosis of bibasilar pneumonia on 06/15; sepsis in the physician clarification on 06/15 and a positive Covid-19 result taken on 06/12 and confirmed on 06/21 in your discharge addendum dated 06/25/19.. A relationship between diagnoses cannot be assumed unless documented as such by the attending physician. In order to capture the severity of condition; please document the relationship, if any, between these diagnoses. History/Risk Factors: Colitis, hypertension, UTI, Atrial Fibrillation Clinical Indicators: 83-year-old female with syncopal episode, hypotension. On presentation ED on 06/12 blood pressure 87/74 108 24 98.4 94 % RA (at 09:54. She complains of coughing since she left the hospital on her pervious admission on 06/03-06/05. 06/12 Labs WBC 10.6, Lactic acid 2.9, 3.1, 2.7 06/13 Chest x-ray: Cardiomegaly with moderate left lower lobe infiltrate and/or effusion 06/12 UA: Ur Leukocyte Esterase Moderate 06/12 Urine culture: no growth after 18 hours 06/13 Collected: COVID -19; 06/21 @ 2.47 PM Positive for 2019 Novel Conornovirus RNA Treatment: Isolation precautions Rocepnin 1 gm IV Q 24 Hr Monitor O2 Saturations (Titrate) Nebulized Duoneb 3 mg QID Lasix IV 40 mg IV Q8hrs Please clarify and document your clinical opinion in the progress notes and discharge summary if any relationship (due to, caused by, secondary to) exists between these two diagnoses. Please include clinical findings supporting your diagnosis. Bibasilar pneumonia and sepsis due to Covid-19 infection Present on admission Other explanation of clinical findings (please specify and link specified conditions) Unable to determine (no explanation for clinical findings) (Last Revision: December 2016) bibasilar pneumonia and sepsis and septic shock secondary to COVID-19, present on admission MTDD
== END 2019-06-17 15:57 | disposition hospice, inpatient (51) | DRG 871 ==
LOC: EC 09:40 → 3SCARD 12:55 → 4SSUR 15:12 → 3SCARD 06-14 11:50
PROVIDERS: ADMIT Internal Medicine Geriatric Medicine; ATTEND Internal Medicine Geriatric Medicine
DX: A41.89 Other specified sepsis (principal); J12.89 Other viral pneumonia; J96.01 Acute respiratory failure with hypoxia; R65.21 Severe sepsis with septic shock; A09 Infectious gastroenteritis and colitis, unspecified; I42.8 Other cardiomyopathies; R18.8 Other ascites; I48.19 Other persistent atrial fibrillation; N39.0 Urinary tract infection, site not specified; I11.0 Hypertensive heart disease with heart failure; B97.29 Other coronavirus as the cause of diseases classified elsewhere; E03.9 Hypothyroidism, unspecified; E78.5 Hyperlipidemia, unspecified; E86.0 Dehydration; I08.0 Rheumatic disorders of both mitral and aortic valves; I25.10 Atherosclerotic heart disease of native coronary artery without angina pectoris; K21.0 Gastro-esophageal reflux disease with esophagitis; K29.70 Gastritis, unspecified, without bleeding; M19.90 Unspecified osteoarthritis, unspecified site; R06.03 Acute respiratory distress; I95.1 Orthostatic hypotension; R32 Unspecified urinary incontinence; Z66 Do not resuscitate; Z79.01 Long term (current) use of anticoagulants; Z79.890 Hormone replacement therapy; Z79.899 Other long term (current) drug therapy; Z86.73 Personal history of transient ischemic attack (TIA), and cerebral infarction without residual deficits; Z90.710 Acquired absence of both cervix and uterus; Z95.810 Presence of automatic (implantable) cardiac defibrillator; Z96.653 Presence of artificial knee joint, bilateral; Z86.718 Personal history of other venous thrombosis and embolism; Z88.5 Allergy status to narcotic agent; Z91.048 Other nonmedicinal substance allergy status; Z80.3 Family history of malignant neoplasm of breast
CPT/HCPCS: 36415; 71045; 74177; 80053; 81001; 82272; 83605; 83690; 83735; 83880; 84484; 85025; 85027; 85610; 85730; 86850; 86900; 86901; 87086; 87324; 87502; 93005; 93306; 94640; 94760; 96360; 96361; 96374; 96375; 99285